=== PATIENT | male | born 1945 | race Caucasian/White ===

== ENCOUNTER → 2016-11-25 | Outpatient (CLI) | payer MEDICARE, BC ==
--- NOTE | 2016-11-25 11:09 | CT ---
EXAMINATION TYPE: CT brain wo con DATE OF EXAM: 11/25/2016 9:30 AM COMPARISON: 07/13/2011 HISTORY: 71-year-old male with headache, Chronic sinusitis. TECHNIQUE: Examination was done in axial plane without intravenous contrast. Coronal and sagittal r econstructions performed. CT DLP: 1576.90 mGycm Automated exposure control for dose reduction was used. FINDINGS: There is no evidence of acute intracranial hemorrhage, acute ischemic changes, mass, mass-effect, or extra-axial fluid collection. There is no effacement of cerebral sulci or basal subarachnoid cister ns. There is no hydrocephalus. There is no midline shift. Orr-white matter distinction is preserv ed. The paranasal sinuses will be reported separately. Orbits and globes are intact. Mastoid air cells we ll pneumatized. IMPRESSION: No acute intracranial abnormality seen. Paranasal sinuses reported separately.
--- NOTE | 2016-11-25 11:17 | CT ---
EXAMINATION TYPE: CT sinus wo con DATE OF EXAM: 11/25/2016 9:31 AM COMPARISON: NONE HISTORY: 71-year-old male headache, Chronic sinusitis. CT DLP: 1576.90 mGycm Automated exposure control for dose reduction was used. TECHNIQUE: Noncontrast axial views of the paranasal sinuses were obtained. Coronal reconstructions pe rformed. FINDINGS: There is evidence of prior medial maxillary antrectomies and some resection extending into the right ethmoid air cells. There is trace mucosal thickening along the floor of the left maxillary sinus, along the medial right maxillary sinus. Mild mucosal thickening throughout the sphenoid sinuses and right ethmoid air cells. Moderate mucosal thickening within the left ethmoid air cells. Rightward nasal septal deviation. There is no air-fluid level. Reactive roverto- osteogenesis is not seen. There is no destruction of the osseous topete of the paranasal sinuses. The osteomeatal complexes are widely patent. The imaged orbits are normal in appearance. Reformatted images confirm above findings. IMPRESSION: Prior FESS. Mild chronic paranasal sinus disease, moderate involving the left ethmoid air cells. Slig ht rightward nasal septal deviation.
== END | disposition home or self-care (01) ==
LOC: RADCTMAIN 09:01
PROVIDERS: ATTEND Family Medicine
DX: J32.2 Chronic ethmoidal sinusitis (principal); J34.2 Deviated nasal septum
CPT/HCPCS: 70450; 70486

== ENCOUNTER → 2017-11-14 | Outpatient (CLI) | payer MEDICARE, BC | END | disposition home or self-care (01) | LOC: LABWHC1 09:07 | PROVIDERS: ATTEND Internal Medicine Endocrinology, Diabetes & Metabolism | DX: E27.40 Unspecified adrenocortical insufficiency (principal) | CPT/HCPCS: 36415; 82024; 82533 ==

== ENCOUNTER → 2018-01-16 | Outpatient (CLI) | payer MEDICARE, BC | LOC: LABWHC1 09:35 | PROVIDERS: ATTEND Internal Medicine Endocrinology, Diabetes & Metabolism | DX: E27.40 Unspecified adrenocortical insufficiency (principal); R79.89 Other specified abnormal findings of blood chemistry | CPT/HCPCS: 36415; 83001; 83002; 84403 ==

== ENCOUNTER → 2018-01-26 | Outpatient (CLI) | payer MEDICARE, BC ==
[2018-01-26 12:21] LABS: Albumin 3.7 g/dL (3.5-5.0); Calcium 9.3 mg/dL (8.4-10.2); Potassium 4.3 mmol/L (3.5-5.1); Total Bilirubin 0.6 mg/dL (0.2-1.3)
== END | disposition home or self-care (01) ==
LOC: LABWHC1 11:46
PROVIDERS: ATTEND Internal Medicine Endocrinology, Diabetes & Metabolism
DX: D35.2 Benign neoplasm of pituitary gland (principal); E27.40 Unspecified adrenocortical insufficiency; R79.89 Other specified abnormal findings of blood chemistry
CPT/HCPCS: 36415; 80053; 83001; 83002; 84403

== ENCOUNTER → 2018-09-14 | Outpatient (CLI) | payer MEDICARE, BC ==
[2018-09-14 10:41] LABS: HCT 41.3 % (39.0-53.0); HGB 13.5 gm/dL (13.0-17.5); MCHC 32.7 g/dL (31.0-37.0); MCV 91.8 fL (80.0-100.0); Platelet Count 277 k/uL (150-450); WBC 9.2 k/uL (3.8-10.6)
[2018-09-14 16:01] LABS: ACTH 11.7 pg/mL (0.00-45.99)
== END ==
LOC: LABWHC1 10:22
PROVIDERS: ATTEND Internal Medicine Endocrinology, Diabetes & Metabolism
DX: D35.2 Benign neoplasm of pituitary gland (principal); E27.40 Unspecified adrenocortical insufficiency; R79.89 Other specified abnormal findings of blood chemistry
CPT/HCPCS: 36415; 82024; 82533; 83001; 83002; 84146; 84403; 85027

== ENCOUNTER → 2018-10-29 | Outpatient (CLI) | payer MEDICARE, BC ==
--- NOTE | 2018-11-09 11:40 | HM ---
HOLTER MONITOR REPORT 48 HOUR HOLTER MONITOR: DATE OF SERVICE: 10/29/2018. INDICATION: Palpitation. CLINICAL INFORMATION: The patient was monitored for 48 hours. The baseline rhythm appeared to be a sinus mechanism with a minimum heart rate of 60 beats per minute: Max heart rate 117 beats per minute, average heart rate of 83 beats per minute. Ventricular ectopic events presented in less than 1% of the total beats count and presented main presented only and isolated PVCs. Supraventricular ectopic events presented again in less than 1% of the total please count and presented as an as well. The PACs. No evidence of sinus pause or sinus arrest seen. The patient reported symptoms of dizziness and the symptoms were associated with PVCs. CONCLUSION: 1. This is a 48 hour Holter monitor. 2. Sinus rhythm as a baseline mechanism. 3. Rare ventricular ectopic events. 4. Right supraventricular ectopic events. 5. No evidence of sinus pause or sinus arrest. 6. The patient reported symptoms of shortness of breath and dizziness and the symptoms were associated with normal sinus mechanism. MMODL / IJN: [id number] /
== END | disposition home or self-care (01) ==
LOC: RADECHMAIN 12:21
PROVIDERS: ATTEND Family Medicine
DX: I49.1 Atrial premature depolarization (principal)
CPT/HCPCS: 93225; 93226

== ENCOUNTER → 2018-11-23 | Outpatient (CLI) | payer MEDICARE, BC ==
[2018-11-23 13:07] LABS: Albumin 4.2 g/dL (3.80-4.90); Albumin/Globulin Ratio 2.47 (1.60-3.17); Anion Gap 5.9 mmol/L (4.00-12.00); Calcium 9.3 mg/dL (8.7-10.3); Carbon Dioxide 28.1 mmol/L (21.6-31.8); Globulin 1.7 g/dL (1.6-3.3); LDL Cholesterol,Calculated 83.4 mg/dL (0.0-131.0); Potassium 4.3 mmol/L (3.5-5.5); Total Bilirubin 0.5 mg/dL (0.3-1.2); Total Protein 5.9 g/dL (6.2-8.2); VLDL Calculation 22.6 mg/dL (5.00-40.00)
== END | disposition home or self-care (01) ==
LOC: LABWHC1 06:47
PROVIDERS: ATTEND Nurse Practitioner Adult Health
DX: E78.2 Mixed hyperlipidemia (principal); I25.10 Atherosclerotic heart disease of native coronary artery without angina pectoris
CPT/HCPCS: 36415; 80053; 80061

== ENCOUNTER → 2019-02-19 | Outpatient (CLI) | payer MEDICARE, BC ==
[2019-02-19 10:16] LABS: HCT 41.5 % (39.0-53.0); HGB 13.5 gm/dL (13.0-17.5); MCH 29.7 pg (25.0-35.0); MCHC 32.4 g/dL (31.0-37.0); MCV 91.6 fL (80.0-100.0); Mean Platelet Volume 7.5; Platelet Count 229 k/uL (150-450); RBC 4.54 m/uL (4.30-5.90); RDW 15.1 % (11.5-15.5); WBC 11.2 k/uL (3.8-10.6)
[2019-02-19 19:00] LABS: ACTH 6.48 pg/mL (0.00-45.99)
== END | disposition home or self-care (01) ==
LOC: LABWHC1 09:37
PROVIDERS: ATTEND Internal Medicine Endocrinology, Diabetes & Metabolism
DX: D35.2 Benign neoplasm of pituitary gland (principal)
CPT/HCPCS: 36415; 82024; 82533; 83001; 83002; 84146; 84403; 85027

== ENCOUNTER → 2019-04-12 | Outpatient (CLI) | payer MEDICARE, BC | END | disposition home or self-care (01) | LOC: LABWHC1 15:49 | PROVIDERS: ATTEND Internal Medicine Endocrinology, Diabetes & Metabolism | DX: D35.2 Benign neoplasm of pituitary gland (principal) | CPT/HCPCS: 36415; 84146 ==

== ENCOUNTER → 2019-04-27 | Outpatient (CLI) | payer MEDICARE, BC | END | disposition home or self-care (01) | LOC: LABWHC1 10:45 | PROVIDERS: ATTEND Internal Medicine Endocrinology, Diabetes & Metabolism | DX: E27.40 Unspecified adrenocortical insufficiency (principal) | CPT/HCPCS: 36415; 82024; 82533 ==

== ENCOUNTER 2019-05-21 07:27 | Inpatient (IN) | payer MEDICARE, BC ==
[2019-05-13 14:16] VITALS: BMI 44.9
[~2019-05-21 07:27] MED LIST: HYDROmorphone 0.5 MG/0.5 ML SYRINGE IVP PRN; SODIUM CHLORIDE 0.9% 1,000 ML in EMPTY BAG 1 BAG IV ONE; ceFAZolin 3 GM in SODIUM CHLORIDE 0.9% 100 ML IVPB ONE
[2019-05-21 08:13] LABS: Basophils % (A) 0 %; Eosinophils # (A) 0.1 k/uL (0-0.7); Eosinophils % (A) 1 %; HCT 45.4 % (39.0-53.0); HGB 15.1 gm/dL (13.0-17.5); Lymphocytes # (A) 1.5 k/uL (1.0-4.8); Lymphocytes % (A) 13 %; MCH 31.4 pg (25.0-35.0); MCHC 33.3 g/dL (31.0-37.0); MCV 94.1 fL (80.0-100.0); Mean Platelet Volume 7.3; Monocytes # (A) 0.9 k/uL (0-1.0); Monocytes % (A) 8 %; Neutrophils % (A) 76 %; Platelet Count 240 k/uL (150-450); RBC 4.82 m/uL (4.30-5.90); WBC 11.8 k/uL (3.8-10.6)
[2019-05-21 08:20] LABS: Calcium 9.3 mg/dL (8.4-10.2); Potassium 4.1 mmol/L (3.5-5.1)
[2019-05-21] MEDS ORDERED: MIDAZOLAM 2 MG/2 ML VIAL ONE (09:23)
[2019-05-21] MEDS ORDERED: HEPARIN SODIUM,PORCINE 10,000 UNIT/ML 1 ML VIAL ONE (09:23)
[2019-05-21] MEDS ORDERED: PROPOFOL 10 MG/ML 20 ML VIAL IV ONE (09:23)
[2019-05-21] MEDS ORDERED: NEOSTIGMINE 1 MG/ML 10 ML VIAL ONE (09:23)
[2019-05-21] MEDS ORDERED: GLYCOPYRROLATE 0.2 MG/ML 2 ML VIAL ONE (09:23)
[2019-05-21] MEDS ORDERED: fentaNYL (PF) 50 MCG/ML 2 ML AMP ONE (09:23)
[2019-05-21] MEDS ORDERED: LIDOCAINE 1% INJ 10MG/ML (20 ML MDV) ONE (09:23)
[2019-05-21] MEDS ORDERED: ROCURONIUM BROMIDE 10 MG/ML 10 ML VIAL IV ONE (09:23)
[2019-05-21] MEDS ORDERED: SUCCINYLCHOLINE CHLORIDE VIAL 200 MG/10 ML VIAL IV ONE (09:23)
[2019-05-21] MEDS ORDERED: ePHEDrine SULFATE/0.9% NACL/PF 50 MG/5 ML SYRINGE IV ONE (09:23)
[2019-05-21] MEDS ORDERED: PROTAMINE SULFATE 10 MG/ML 5 ML VIAL IV ONE (09:23)
[2019-05-21] MEDS ORDERED: PHENYLEPHRINE-0.9% NACL SYG 1 MG/10 ML SYRINGE ONE (09:23)
[2019-05-21] MEDS ORDERED: ceFAZolin 10 GM VIAL IVPB ONE (09:45)
[2019-05-21] MEDS ORDERED: LIDOCAINE 1% INJ 10MG/ML (20 ML MDV) SQ ONE (10:11)
[2019-05-21] MEDS ORDERED: LACTATED RINGERS 1,000 ML IV ONE ×2 (10:45→12:40)
[2019-05-21] MEDS ORDERED: IOPAMIDOL-250 100ML BTL INTRAARTER ONE ×3 (12:01→12:02)
[2019-05-21] MEDS: LACTATED RINGERS 1,000 ML IV SCH ×2 (13:16→13:17)
[2019-05-21 13:57] LABS: Glucose,Whole Blood 145 mg/dL (75-99)
[2019-05-21] MEDS: SODIUM CHLORIDE 0.9% 1,000 ML IV SCH (14:14)
[2019-05-21] MEDS: HYDROcodone/APAP 5-325MG 1 EACH TAB PO PRN ×2 (15:56→21:40)
--- NOTE | 2019-05-21 16:03 | P.CONS ---
History of Present Illness - Reason for Consult Consult date: 05/21/19 Medical management Requesting physician: Arnulfo Richards - History of Present Illness This is a 73-year-old male patient of Dr. Navarrete. Patient presented for an elective aortic stent graft with Dr. Richards. Patient has a past medical history of prothrombin gene mutation, chest pain, COPD, deep vein thrombosis, GERD, pneumonia, chronic renal disease, sleep apnea, diverticulitis, adrenal insufficiency, heart catheterization with stents last one approximately 5 years ago, anxiety and nicotine dependence. Patient is currently resting comfortably in bed on home CPAP machine. Patient does have bilateral lower extremity edema in which he reports is chronic. Patient has mild back discomfort from having to lay on back. Patient denies any chest pain or shortness of breath. Patient denies nausea vomiting or diarrhea. Patient denies any urinary burning or frequency Review of Systems Please refer to HPI otherwise unremarkable Past Medical History Past Medical History: Blood Disorder, Chest Pain / Angina, COPD, Deep Vein Thrombosis (DVT), GERD/Reflux, Pneumonia, Renal Disease, Sleep Apnea/CPAP/BIPAP Additional Past Medical History / Comment(s): abdominal aortic aneursym. prothrombin gene mutation. has cpap machine. prediabetic,hx diverticulitis, sinus problems with drainage, adrenal insufficiency History of Any Multi-Drug Resistant Organisms: MRSA Year Discovered:: 2016 MDRO Source:: back Past Surgical History: Appendectomy, Bowel Resection, Cholecystectomy, Heart Catheterization With Stent, Hernia Repair, Prostate Surgery Additional Past Surgical History / Comment(s): growth removed from side. heart cath x2 with 3-4 stents Past Anesthesia/Blood Transfusion Reactions: Motion Sickness Date of Last Stent Placement:: 2014 Smoking Status: Current every day smoker - Past Family History Mother Family Medical History: No Reported History Medications and Allergies Home Medications Medication Instructions Recorded Confirmed Type Albuterol Inhaler [Ventolin Hfa 1 puff INHALATION RT-BID 05/13/19 05/21/19 History Inhaler] Allopurinol [Zyloprim] 100 mg PO BID 05/13/19 05/21/19 History Budesonide [Pulmicort] 0.25 mg INHALATION RT-BID 05/13/19 05/21/19 History Cetirizine HCl [Zyrtec] 10 mg PO DAILY 05/13/19 05/21/19 History Clopidogrel Bisulfate [Plavix] 75 mg PO DAILY 05/13/19 05/21/19 History Ergocalciferol [Vitamin D2] 50,000 unit PO Q15D 05/13/19 05/21/19 History Ezetimibe [Zetia] 10 mg PO HS 05/13/19 05/21/19 History Flecainide Acetate [Tambocor] 100 mg PO Q12HR 05/13/19 05/21/19 History Furosemide [Lasix] 20 mg PO DAILY PRN 05/13/19 05/21/19 History Hydrocortisone [Cortef] 10 mg PO DAILY@1300 05/13/19 05/21/19 History Hydrocortisone [Cortef] 20 mg PO DAILY 05/13/19 05/21/19 History Ipratropium [place] [Atrovent Hfa] 2 puff INHALATION RT-BID 05/13/19 05/21/19 History Isosorbide Mononitrate [Isosorbide 30 mg PO DAILY 05/13/19 05/21/19 History Mononitrate ER] Meclizine [Antivert] 12.5 mg PO DAILY PRN 05/13/19 05/21/19 History Metoprolol Tartrate [Lopressor] 12.5 mg PO BID 05/13/19 05/21/19 History Montelukast [Singulair] 10 mg PO HS 05/13/19 05/21/19 History Multivitamins, Thera [Multivitamin 1 tab PO DAILY 05/13/19 05/21/19 History (formulary)] Pantoprazole Sodium [Protonix] 40 mg PO BID 05/13/19 05/21/19 History cycloSPORINE 0.05% OPHTH SOLN 1 applicator BOTH EYES Q12H 05/13/19 05/21/19 History [Restasis] Allergies Allergy/AdvReac Type Severity Reaction Status Date / Time cyclobenzaprine Allergy Facial Verified 05/21/19 12:52 [From Flexeril] Swelling Ncvwskf-Wew-Tzu Reductase Allergy Unknown Verified 05/21/19 12:52 Inhibitor Physical Exam Vitals: Vital Signs Temp Pulse Pulse Pulse Resp BP BP 05/21/19 15:00 63 12 05/21/19 14:50 60 15 05/21/19 14:40 56 L 14 05/21/19 14:30 56 L 17 05/21/19 14:20 65 14 05/21/19 14:10 62 12 101/71 05/21/19 14:00 97.5 F L 64 13 116/69 05/21/19 13:32 54 L 18 114/62 05/21/19 13:17 64 18 110/60 05/21/19 13:02 58 L 24 98/47 05/21/19 12:51 98.7 F 65 24 112/58 05/21/19 08:37 98.2 F 80 20 120/69 Pulse Ox 05/21/19 15:00 92 L 05/21/19 14:50 91 L 05/21/19 14:40 89 L 05/21/19 14:30 90 L 05/21/19 14:20 93 L 05/21/19 14:10 92 L 05/21/19 14:00 92 L 05/21/19 13:32 95 05/21/19 13:17 94 L 05/21/19 13:02 93 L 05/21/19 12:51 97 05/21/19 08:37 93 L Intake and Output 05/21/19 05/21/19 05/21/19 06:59 14:59 22:59 Intake Total 2155 75 Output Total 250 40 Balance 1905 35 Intake: IV 2155 75 Sodium Chloride 0.9% 1, 75 75 000 ml @ 75 mls/hr IV . [id number] [facility] Rx#:[id number] Output: Urine 250 40 ABP, PAP, CO, CI - Last 8 Hours Arterial Blood Pressure 123/55 Arterial Blood Pressure 124/56 Arterial Blood Pressure 125/57 Arterial Blood Pressure 130/61 Arterial Blood Pressure 122/59 Arterial Blood Pressure 130/58 Arterial Blood Pressure 125/67 please refer to HPI otherwise unremarkable Results CBC & Chem 7: 05/21/19 07:50 05/21/19 07:50 Labs: Abnormal Lab Results - Last 24 Hours (Table) 05/21/19 05/21/19 05/21/19 Range/Units 07:50 07:50 13:55 WBC 11.8 H (3.8-10.6) k/uL RDW 16.0 H (11.5-15.5) % Neutrophils # 9.0 H (1.3-7.7) k/uL Glucose 140 H (74-99) mg/dL POC Glucose (mg/dL) 145 H (75-99) mg/dL Assessment and Plan Assessment: 1. Status post aortic stent graft with Dr. Richards. postop day 0 2. History of abdominal aortic aneurysm 3. History of blood disorder prothrombin gene mutation 4. History of COPD home meds resumed no signs of exacerbation at this time 5. History of GERD 6. History of chest pain 7. History of DVT patient reports this is approximately 15 years ago not currently on any anticoagulation 8. History of heart cath with stents in 2014 9. Nicotine dependence. Patient educated on nicotine cessation greater then 3 min. Nicotine patch has been ordered. 10. History of adrenal insufficiency. Patient maintained on Solu-Cortef 11. History of sleep apnea. Home CPAP machine ordered 12. Hyperglycemia. Hemoglobin A1c has been ordered. Sliding scale insulin coverage ordered 13. Hyperlipidemia. Patient seen on study of 14. Bilateral lower extremity pedal edema. Patient reports this is chronic maintained on Lasix. DVT prophylaxis deferred to surgical team. GI prophylaxis Pepcid Thank you for this consultation we will continue to follow patient closely throughout stay Time with Patient: Greater than 30 (Greater than 60% of the total time spent in counseling and coordination of care. I performed an examination of the patient and discussed their management with the Nurse Practitioner. I have reviewed the Nurse Practitioner's notes and agree with the documented findings and plan of care)
[2019-05-21 16:37] LABS: Glucose,Whole Blood 112 mg/dL (75-99)
[2019-05-21] MEDS: INSULIN ASPART (NovoLOG) 100 UNIT/ML VIAL SQ SCH ×2 (17:09→21:24)
[2019-05-21] MEDS: FUROSEMIDE 20 MG TAB PO SCH (17:12)
[2019-05-21] MEDS: PANTOPRAZOLE 40 MG TABLET PO SCH (17:12)
--- NOTE | 2019-05-21 18:31 | P.CNPUL ---
History of Present Illness Consult date: 05/21/19 Reason for consult: dyspnea, asthma, COPD, hypoxemia, obstructive sleep apnea Chief complaint: COPD obstructive sleep apnea History of present illness: This is a 73-year-old well-known to me patient has a long-standing history of multiple medical problems including recurrent DVT with a history of prothrombin gene mutation, patient has severe obstructive sleep apnea has been on CPAP he has severe COPD chronic recurrent sinopulmonary infections with history of coronary artery disease patient has an enlarging aortic aneurysm and was admitted electively for graft postoperatively patient developed some shortness of breath and wheezing however he did responded well with CPAP along with bronchodilator he is resting comfortably on CPAP in ICU he has been resumed on not only CPAP but Pulmicort and DuoNeb as well he has been resumed on his baseline home medicine including hydrocortisone for chronic adrenal insufficie ncy Review of Systems All systems: negative Past Medical History Past Medical History: Blood Disorder, Chest Pain / Angina, COPD, Deep Vein Thrombosis (DVT), GERD/Reflux, Pneumonia, Renal Disease, Sleep Apnea/CPAP/BIPAP Additional Past Medical History / Comment(s): abdominal aortic aneursym. p rothrombin gene mutation. has cpap machine. prediabetic,hx diverticulitis, sinus problems with drainage, adrenal insufficiency History of Any Multi-Drug Resistant Organisms: MRSA Date of last positivie culture/infection: 2015 MDRO Source:: back Past Surgical History: Appendectomy, Bowel Resection, Cholecystectomy, Heart Catheterization With Stent, Hernia Repair, Prostate Surgery Additional Past Surgical History / Comment(s): growth removed from side. heart cath x2 with 3-4 stents Past Anesthesia/Blood Transfusion Reactions: Motion Sickness Date of Last Stent Placement:: 2014 Smoking Status: Current every day smoker - Past Family History Mother Family Medical History: No Reported History Medications and Allergies Home Medications Medication Instructions Recorded Confirmed Type Albuterol Inhaler [Ventolin Hfa 1 puff INHALATION RT-BID 05/13/19 05/21/19 History Inhaler] Allopurinol [Zyloprim] 100 mg PO BID 05/13/19 05/21/19 History Budesonide [Pulmicort] 0.25 mg INHALATION RT-BID 05/13/19 05/21/19 History Cetirizine HCl [Zyrtec] 10 mg PO DAILY 05/13/19 05/21/19 History Clopidogrel Bisulfate [Plavix] 75 mg PO DAILY 05/13/19 05/21/19 History Ergocalciferol [Vitamin D2] 50,000 unit PO Q15D 05/13/19 05/21/19 History Ezetimibe [Zetia] 10 mg PO HS 05/13/19 05/21/19 History Flecainide Acetate [Tambocor] 100 mg PO Q12HR 05/13/19 05/21/19 History Furosemide [Lasix] 20 mg PO DAILY PRN 05/13/19 05/21/19 History Hydrocortisone [Cortef] 10 mg PO DAILY@1300 05/13/19 05/21/19 History Hydrocortisone [Cortef] 20 mg PO DAILY 05/13/19 05/21/19 History Ipratropium [place] [Atrovent Hfa] 2 puff INHALATION RT-BID 05/13/19 05/21/19 History Isosorbide Mononitrate [Isosorbide 30 mg PO DAILY 05/13/19 05/21/19 History Mononitrate ER] Meclizine [Antivert] 12.5 mg PO DAILY PRN 05/13/19 05/21/19 History Metoprolol Tartrate [Lopressor] 12.5 mg PO BID 05/13/19 05/21/19 History Montelukast [Singulair] 10 mg PO HS 05/13/19 05/21/19 History Multivitamins, Thera [Multivitamin 1 tab PO DAILY 05/13/19 05/21/19 History (formulary)] Pantoprazole Sodium [Protonix] 40 mg PO BID 05/13/19 05/21/19 History cycloSPORINE 0.05% OPHTH SOLN 1 applicator BOTH EYES Q12H 05/13/19 05/21/19 History [Restasis] Allergies Allergy/AdvReac Type Severity Reaction Status Date / Time cyclobenzaprine Allergy Facial Verified 05/21/19 12:52 [From Flexeril] Swelling Oqgpowd-Mni-Xle Reductase Allergy Unknown Verified 05/21/19 12:52 Inhibitor Physical Exam Vitals: Vital Signs Temp Pulse Pulse Pulse Resp BP BP 05/21/19 18:00 68 16 120/64 05/21/19 17:30 65 12 120/64 05/21/19 17:00 62 15 05/21/19 16:30 68 18 117/70 05/21/19 16:00 97.7 F 75 24 107/61 05/21/19 15:30 63 20 107/61 05/21/19 15:00 63 12 101/71 05/21/19 14:50 60 15 101/71 05/21/19 14:40 56 L 14 101/71 05/21/19 14:30 56 L 17 101/71 05/21/19 14:20 65 14 05/21/19 14:10 62 12 101/71 05/21/19 14:00 97.5 F L 64 13 116/69 05/21/19 13:32 54 L 18 114/62 05/21/19 13:17 64 18 110/60 05/21/19 13:02 58 L 24 98/47 05/21/19 12:51 98.7 F 65 24 112/58 05/21/19 08:37 98.2 F 80 20 120/69 Pulse Ox 05/21/19 18:00 93 L 05/21/19 17:30 93 L 05/21/19 17:00 94 L 05/21/19 16:30 92 L 05/21/19 16:00 95 05/21/19 15:30 94 L 05/21/19 15:00 92 L 05/21/19 14:50 91 L 05/21/19 14:40 89 L 05/21/19 14:30 90 L 05/21/19 14:20 93 L 05/21/19 14:10 92 L 05/21/19 14:00 92 L 05/21/19 13:32 95 05/21/19 13:17 94 L 05/21/19 13:02 93 L 05/21/19 12:51 97 05/21/19 08:37 93 L Intake and Output 05/21/19 05/21/19 05/21/19 06:59 14:59 22:59 Intake Total 2155 300 Output Total 250 200 Balance 1905 100 Intake: IV 2155 300 Sodium Chloride 0.9% 1, 75 300 000 ml @ 75 mls/hr IV . [id number] [facility] Rx#:[id number] Output: Urine 250 200 Other: Voiding Method Indwelling Catheter ABP, PAP, CO, CI - Last 8 Hours Arterial Blood Pressure 140/58 Arterial Blood Pressure 138/70 Arterial Blood Pressure 144/63 Arterial Blood Pressure 141/68 Arterial Blood Pressure 131/59 Arterial Blood Pressure 131/59 Arterial Blood Pressure 123/55 Arterial Blood Pressure 124/56 Arterial Blood Pressure 125/57 Arterial Blood Pressure 130/61 Arterial Blood Pressure 122/59 Arterial Blood Pressure 130/58 Arterial Blood Pressure 125/67 - Constitutional General appearance: disheveled, mild distress, morbidly obese - EENT Eyes: EOMI, PERRLA, normal appearance ENT: hearing grossly normal Ears: bilateral: normal - Neck Carotids: bilateral: upstroke normal Thyroid: bilateral: normal size - Respiratory Respiratory: bilateral: CTA - Cardiovascular Rhythm: regular Heart sounds: normal: S1, S2 - Gastrointestinal General gastrointestinal: decreased bowel sounds, soft - Integumentary Integumentary: normal turgor - Neurologic Neurologic: CNII-XII intact - Musculoskeletal Musculoskeletal: gait normal, generalized weakness, strength equal bilaterally - Psychiatric Psychiatric: A&O x's 3, appropriate affect, intact judgment & insight Results - Laboratory Findings CBC and BMP: 05/21/19 07:50 05/21/19 07:50 Abnormal lab findings: Abnormal Labs 05/21/19 05/21/19 05/21/19 07:50 07:50 13:55 WBC 11.8 H RDW 16.0 H Neutrophils # 9.0 H Glucose 140 H POC Glucose (mg/dL) 145 H 05/21/19 16:35 WBC RDW Neutrophils # Glucose POC Glucose (mg/dL) 112 H Assessment and Plan Assessment: Obstructive sleep apnea on CPAP Severe COPD and chronic persistent asthma Morbid obesity Abdominal aortic aneurysm status post graft postop day #0 Hypercoagulable state related to prominent thrombin gene mutation History of DVT Coronary artery disease with history of stents Chronic adrenal insufficiency Plan: Plan as above bronchodilator CPAP continue home medications follow clinical course closely further recommendations pending
[2019-05-21] MEDS: BUDESONIDE 0.25 MG/2 ML NEBU INHALATION SCH (19:55)
[2019-05-21] MEDS: IPRATROPIUM-ALBUTEROL 3 ML NEB INHALATION SCH (19:55)
[2019-05-21] MEDS ORDERED: NON-FORMULARY DRUG (Ipratropium Bromide [Atrovent Hfa] 2 PUFF) INHALATION SCH (20:00)
[2019-05-21] MEDS: METOPROLOL TARTRATE 12.5 MG TAB PO SCH (20:24)
[2019-05-21] MEDS: FLECAINIDE 50 MG TAB PO SCH (20:24)
[2019-05-21] MEDS: ALLOPURINOL 100 MG TAB PO SCH (20:24)
[2019-05-21 20:35] LABS: Glucose,Whole Blood 154 mg/dL (75-99)
[2019-05-21] MEDS ORDERED: EZETIMIBE 10 MG TAB PO SCH (21:00)
[2019-05-21] MEDS ORDERED: MONTELUKAST 10 MG TAB PO SCH (21:00)
[2019-05-21] MEDS: NICOTINE 14MG/24HR PATCH TRANSDERM SCH (21:31)
[2019-05-21] MEDS: cycloSPORINE 0.05% OPHTH 0.4 ML DROPERETTE BOTH EYES SCH (21:31)
[2019-05-22] MEDS: HYDROcodone/APAP 5-325MG 1 EACH TAB PO PRN (00:45)
[2019-05-22 01:05] LABS: Hemoglobin A1C 6.1 % (4.0-6.0)
[2019-05-22] MEDS: SODIUM CHLORIDE 0.9% 1,000 ML IV SCH (01:47)
[2019-05-22] MEDS: LACTATED RINGERS 1,000 ML IV SCH (01:47)
[2019-05-22 05:38] LABS: Basophils # (A) 0.4 k/uL (0-0.2); Basophils % (A) 3 %; Eosinophils # (A) 0.1 k/uL (0-0.7); Eosinophils % (A) 1 %; HCT 39.9 % (39.0-53.0); HGB 13.9 gm/dL (13.0-17.5); Lymphocytes # (A) 1.1 k/uL (1.0-4.8); Lymphocytes % (A) 9 %; MCH 32.2 pg (25.0-35.0); MCHC 34.8 g/dL (31.0-37.0); MCV 92.6 fL (80.0-100.0); Mean Platelet Volume 7.2; Monocytes # (A) 1.1 k/uL (0-1.0); Monocytes % (A) 9 %; Neutrophils # (A) 9.5 k/uL (1.3-7.7); Neutrophils % (A) 77 %; Platelet Count 182 k/uL (150-450); RBC 4.31 m/uL (4.30-5.90); RDW 14.9 % (11.5-15.5); WBC 12.4 k/uL (3.8-10.6)
[2019-05-22 05:47] LABS: African American GFR (CKD) >90 (>60 ml/min/1.73 sqM); Anion Gap 7 mmol/L; Blood Urea Nitrogen 14 mg/dL (9-20); Calcium 8.8 mg/dL (8.4-10.2); Carbon Dioxide 26 mmol/L (22-30); Chloride 100 mmol/L (98-107); Glucose 126 mg/dL (74-99); Sodium 133 mmol/L (137-145)
[2019-05-22 06:56] LABS: Glucose,Whole Blood 145 mg/dL (75-99)
[2019-05-22] MEDS: PANTOPRAZOLE 40 MG TABLET PO SCH (06:57)
[2019-05-22] MEDS: INSULIN ASPART (NovoLOG) 100 UNIT/ML VIAL SQ SCH ×2 (06:57→12:00)
[2019-05-22 07:17] LABS: Potassium 4.3 mmol/L (3.5-5.1)
[2019-05-22] MEDS: IPRATROPIUM-ALBUTEROL 3 ML NEB INHALATION SCH (08:21)
[2019-05-22] MEDS: BUDESONIDE 0.25 MG/2 ML NEBU INHALATION SCH (08:21)
[2019-05-22] MEDS: METOPROLOL TARTRATE 12.5 MG TAB PO SCH (08:44)
[2019-05-22] MEDS: FLECAINIDE 50 MG TAB PO SCH (08:45)
[2019-05-22] MEDS: FUROSEMIDE 20 MG TAB PO SCH (08:45)
[2019-05-22] MEDS: ALLOPURINOL 100 MG TAB PO SCH (08:45)
[2019-05-22] MEDS: cycloSPORINE 0.05% OPHTH 0.4 ML DROPERETTE BOTH EYES SCH (08:46)
[2019-05-22] MEDS: NICOTINE 14MG/24HR PATCH TRANSDERM SCH (08:47)
--- NOTE | 2019-05-22 08:59 | P.DS ---
Providers Date of admission: 05/21/19 07:27 Attending physician: Arnulfo Richards DO Consults: 05/21/19 06:05 Consult to Anesthesia Routine Consulting Provider: Anesthesia,Services Consult Reason/Comments: General anesthesia for Aortic Stent procedure 05/21/19 15:33 Consult Physician Routine Consulting Provider: Jose Elaine Consult Reason/Comments: medical management/covers Dr Osullivan per Dr Cotton, Dr Elaine confirms Do you want consulting provider notified?: Already Contacted 05/21/19 16:30 Consult Physician Routine Consulting Provider: Jadon Smith Consult Reason/Comments: Established patient Do you want consulting provider notified?: Yes Primary care physician: Maddy Osullivan [facility] Course: The patient is a 73-year-old male who initially was admitted through outpatient procedures for a endovascular abdominal aortic aneurysm repair. He underwent this procedure on 05/21/2019 which he tolerated well. On postoperative day #1 he was urinating well without any issue. He was tolerating a diet. He was up and ambulating without issue. His groins were intact without any evidence of significant hematoma or evidence of pseudoaneurysm. There was minimal oozing overnight from the groins at this time there appears to be no drainage. The dressings are changed. He was found with stable condition for discharge. He will be restarted on his home medications which include Plavix Patient Condition at Discharge: Good Plan - Discharge Summary Discharge Rx Participant: No New Discharge Prescriptions: No Action Multivitamins, Thera [Multivitamin (formulary)] 1 tab PO DAILY Ipratropium [place] [Atrovent Hfa] 2 puff INHALATION RT-BID Furosemide [Lasix] 20 mg PO DAILY PRN PRN Reason: Edema Flecainide Acetate [Tambocor] 100 mg PO Q12HR Ezetimibe [Zetia] 10 mg PO HS Albuterol Inhaler [Ventolin Hfa Inhaler] 1 puff INHALATION RT-BID Budesonide [Pulmicort] 0.25 mg INHALATION RT-BID cycloSPORINE 0.05% OPHTH SOLN [Restasis] 1 applicator BOTH EYES Q12H Montelukast [Singulair] 10 mg PO HS Metoprolol Tartrate [Lopressor] 12.5 mg PO BID Cetirizine HCl [Zyrtec] 10 mg PO DAILY Allopurinol [Zyloprim] 100 mg PO BID Pantoprazole Sodium [Protonix] 40 mg PO BID Ergocalciferol [Vitamin D2] 50,000 unit PO Q15D Clopidogrel Bisulfate [Plavix] 75 mg PO DAILY Isosorbide Mononitrate [Isosorbide Mononitrate ER] 30 mg PO DAILY Hydrocortisone [Cortef] 10 mg PO DAILY@1300 Hydrocortisone [Cortef] 20 mg PO DAILY Meclizine [Antivert] 12.5 mg PO DAILY PRN PRN Reason: dizziness Discharge Medication List Albuterol Inhaler [Ventolin Hfa Inhaler] 1 puff INHALATION RT-BID 05/13/19 [History] Allopurinol [Zyloprim] 100 mg PO BID 05/13/19 [History] Budesonide [Pulmicort] 0.25 mg INHALATION RT-BID 05/13/19 [History] Cetirizine HCl [Zyrtec] 10 mg PO DAILY 05/13/19 [History] Clopidogrel Bisulfate [Plavix] 75 mg PO DAILY 05/13/19 [History] Ergocalciferol [Vitamin D2] 50,000 unit PO Q15D 05/13/19 [History] Ezetimibe [Zetia] 10 mg PO HS 05/13/19 [History] Flecainide Acetate [Tambocor] 100 mg PO Q12HR 05/13/19 [History] Furosemide [Lasix] 20 mg PO DAILY PRN 05/13/19 [History] Hydrocortisone [Cortef] 10 mg PO DAILY@1300 05/13/19 [History] Hydrocortisone [Cortef] 20 mg PO DAILY 05/13/19 [History] Ipratropium [place] [Atrovent Hfa] 2 puff INHALATION RT-BID 05/13/19 [History] Isosorbide Mononitrate [Isosorbide Mononitrate ER] 30 mg PO DAILY 05/13/19 [History] Meclizine [Antivert] 12.5 mg PO DAILY PRN 05/13/19 [History] Metoprolol Tartrate [Lopressor] 12.5 mg PO BID 05/13/19 [History] Montelukast [Singulair] 10 mg PO HS 05/13/19 [History] Multivitamins, Thera [Multivitamin (formulary)] 1 tab PO DAILY 05/13/19 [History] Pantoprazole Sodium [Protonix] 40 mg PO BID 05/13/19 [History] cycloSPORINE 0.05% OPHTH SOLN [Restasis] 1 applicator BOTH EYES Q12H 05/13/19 [History] Follow up Appointment(s)/Referral(s): Arnulfo Richards DO [STAFF PHYSICIAN] - 10 Days Activity/Diet/Wound Care/Special Instructions: Continue diet as tolerated. Change groin dressings as needed. May shower starting tomorrow. No soaking in pools, tubs or bath etc. Follow-up with Dr. Richards in 10-14 days Discharge Disposition: HOME SELF-CARE
[2019-05-22] MEDS ORDERED: NICOTINE 14MG/24HR PATCH TRANSDERM SCH (09:00)
[2019-05-22] MEDS ORDERED: CLOPIDOGREL 75 MG TAB PO SCH (09:00)
[2019-05-22] MEDS ORDERED: MULTIVITAMINS, THERA 1 EACH TAB PO SCH (09:00)
[2019-05-22] MEDS ORDERED: LORATADINE 10 MG TAB PO SCH (09:00)
[2019-05-22] MEDS ORDERED: ISOSORBIDE MONONITRATE ER 30 MG TAB.ER.24H PO SCH (09:00)
[2019-05-22] MEDS ORDERED: FAMOTIDINE 20 MG TAB PO SCH (09:00)
[2019-05-22] MEDS ORDERED: HYDROCORTISONE 10 MG TAB PO SCH ×2 (09:00→13:00)
[2019-05-22] MEDS ORDERED: ALPRAZolam 0.5 MG TAB PO PRN (09:32)
--- NOTE | 2019-05-22 10:28 | P.PN ---
Subjective Progress Note Date: 05/22/19 This is a 73-year-old male patient of Dr. Navarrete. Patient presented for an elective aortic stent graft with Dr. Richards. Patient has a past medical history of prothrombin gene mutation, chest pain, COPD, deep vein thrombosis, GERD, pneumonia, chronic renal disease, sleep apnea, diverticulitis, adrenal i nsufficiency, heart catheterization with stents last one approximately 5 years ago, anxiety and nicotine dependence. Patient is currently resting comfortably in bed on home CPAP machine. Patient does have bilateral lower extremity edema in which he reports is chronic. Patient has mild back discomfort from having to lay on back. Patient denies any chest pain or shortness of breath. Patient den ies nausea vomiting or diarrhea. Patient denies any urinary burning or frequency On 05/22/2019 patient is alert and oriented 3. Patient's is very eager to go home plans to be discharged from cardiovascular surgery. At this time patient denies chest pain or shortness of breath. Patient denies nausea vomiting or diarrhea. Patient denies urinary burning or frequency Objective - Vital Signs Vital signs: Vital Signs Temp 98.1 F 05/22/19 09:00 Pulse 84 05/22/19 10:00 Resp 19 05/22/19 10:00 BP 159/88 05/22/19 10:00 Pulse Ox 93 L 05/22/19 10:00 Intake & Output 05/21/19 05/22/19 05/22/19 18:59 06:59 18:59 Intake Total 2455 900 85 Output Total 450 1475 900 Balance 2004 -575 -815 Weight 158.9 kg Intake: IV 2455 900 85 Sodium Chloride 0.9% 1, 375 900 85 000 ml @ 75 mls/hr IV . [id number] [facility] Rx#:[id number] Output: Urine 450 1475 900 Other: Voiding Method Indwelling Catheter Indwelling Catheter Urinal ABP, PAP, CO, CI - Last Documented Arterial Blood Pressure 160/62 - Exam Head normocephalic Neck supple Lungs diminished bilaterally Heart regular rate and rhythm S1-S2, no rub or gallop Abdomen is soft nontender nondistended positive bowel sounds no hepatosplenomegaly Extremities 2 pedal edema patient reports chronic Neuro alert and orientated to 3 - Labs CBC & Chem 7: 05/22/19 05:10 05/22/19 05:10 Labs: Abnormal Lab Results - Last 24 Hours (Table) 05/21/19 05/21/19 05/21/19 Range/Units 07:50 13:55 16:35 WBC (3.8-10.6) k/uL Neutrophils # (1.3-7.7) k/uL Monocytes # (0-1.0) k/uL Basophils # (0-0.2) k/uL Sodium (137-145) mmol/L Glucose (74-99) mg/dL POC Glucose (mg/dL) 145 H 112 H (75-99) mg/dL Hemoglobin A1c 6.1 H (4.0-6.0) % 05/21/19 05/22/19 05/22/19 Range/Units 20:33 05:10 05:10 WBC 12.4 H (3.8-10.6) k/uL Neutrophils # 9.5 H (1.3-7.7) k/uL Monocytes # 1.1 H (0-1.0) k/uL Basophils # 0.4 H (0-0.2) k/uL Sodium 133 L (137-145) mmol/L Glucose 126 H (74-99) mg/dL POC Glucose (mg/dL) 154 H (75-99) mg/dL Hemoglobin A1c (4.0-6.0) % 05/22/19 Range/Units 06:53 WBC (3.8-10.6) k/uL Neutrophils # (1.3-7.7) k/uL Monocytes # (0-1.0) k/uL Basophils # (0-0.2) k/uL Sodium (137-145) mmol/L Glucose (74-99) mg/dL POC Glucose (mg/dL) 145 H (75-99) mg/dL Hemoglobin A1c (4.0-6.0) % Assessment and Plan Assessment: 1. Status post aortic stent graft with Dr. Richards. postop day 1. Patient planned to be discharged home per cardiovascular surgery. Plavix has been resumed 2. History of abdominal aortic aneurysm 3. History of blood disorder prothrombin gene mutation 4. History of COPD home meds resumed no signs of exacerbation at this time. Patient was evaluated by Dr. Smith 5. History of GERD 6. History of chest pain 7. History of DVT patient reports this is approximately 15 years ago not currently on any anticoagulation 8. History of heart cath with stents in 2015 9. Nicotine dependence. Patient educated on nicotine cessation greater then 3 min. Nicotine patch has been ordered. 10. History of adrenal insufficiency. Patient maintained on Solu-Cortef 11. History of sleep apnea. Home CPAP machine ordered 12. Hyperglycemia. Hemoglobin A1c has been ordered. Sliding scale insulin coverage ordered 13. Hyperlipidemia. Patient maintained on zetia 14. Bilateral lower extremity pedal edema. Patient reports this is chronic maintained on Lasix. 15. Leukocytosis White blood cell elevated at 12.4. Patient denies any acute symptoms likely due to Solu-Cortef DVT prophylaxis deferred to surgical team. GI prophylaxis Pepcid Thank you for this consultation we will continue to follow patient closely throughout stay I performed an examination of the patient and discussed their management with the Nurse Practitioner. I have reviewed the Nurse Practitioner's notes and agree with the documented findings and plan of care
[2019-05-22 11:45] LABS: Glucose,Whole Blood 134 mg/dL (75-99)
[2019-05-22 12:03] VITALS: BP 121/67; TEMP 98.3
--- NOTE | 2019-05-22 13:28 | P.PN ---
Subjective Progress Note Date: 05/22/19 Principal diagnosis: Obstructive sleep apnea on CPAP Severe COPD and chronic persistent asthma Morbid obesity Abdominal aortic aneurysm status post graft postop day #0 Hypercoagulable state related to prominent thrombin gene mutation History of DVT Coronary artery disease with history of stents Chronic adrenal insufficiency 05/22/2019, patient seen eval reexamined during the rounds feeling better denies any chest pain or shortness of breath able to get up and move around denies any discomfort and operative site he has been doing well with the CPAP machine slept majority of the night last night, patient does seems to get better sleep on sides than nonsupine posture where pressure probably needs to be adjusted somewhat anxious today wants to get out of here it appears that surgical service has cleared him for discharge from pulmonary and sleep standpoint he is stable for discharge as well labs reviewed medications reviewed care plan discussed with staff at length This is a 73-year-old well-known to me patient has a long-standing history of multiple medical problems including recurrent DVT with a history of prothrombin gene mutation, patient has severe obstructive sleep apnea has been on CPAP he has severe COPD chronic recurrent sinopulmonary infections with history of coronary artery disease patient has an enlarging aortic aneurysm and was admitted electively for graft postoperatively patient developed some shortness of breath and wheezing however he did responded well with CPAP along with bronchodilator he is resting comfortably on CPAP in ICU he has been resumed on not only CPAP but Pulmicort and DuoNeb as well he has been resumed on his [facility] home medicine including hydrocortisone for chronic adrenal insufficiency Objective - Vital Signs Vital signs: Vital Signs Temp 98.3 F 05/22/19 12:00 Pulse 87 05/22/19 12:00 Resp 23 05/22/19 12:00 BP 121/67 05/22/19 12:00 Pulse Ox 94 L 05/22/19 12:00 Intake & Output 05/21/19 05/22/19 05/22/19 18:59 06:59 18:59 Intake Total 2455 900 85 Output Total 450 1475 1350 Balance 2004 9 Weight 158.9 kg Intake: IV 2455 900 85 Sodium Chloride 0.9% 1, 375 900 85 000 ml @ 75 mls/hr IV . [id number] [facility] Rx#:[id number] Output: Urine 450 1475 1350 Other: Voiding Method Indwelling Catheter Indwelling Catheter Urinal ABP, PAP, CO, CI - Last Documented Arterial Blood Pressure 160/62 - Exam Constitutional General appearance: disheveled, mild distress, morbidly obese - EENT Eyes: EOMI, PERRLA, normal appearance ENT: hearing grossly normal Ears: bilateral: normal - Neck Carotids: bilateral: upstroke normal Thyroid: bilateral: normal size - Respiratory Respiratory: bilateral: CTA - Cardiovascular Rhythm: regular Heart sounds: normal: S1, S2 - Gastrointestinal General gastrointestinal: decreased bowel sounds, soft - Integumentary Integumentary: normal turgor - Neurologic Neurologic: CNII-XII intact - Musculoskeletal Musculoskeletal: gait normal, generalized weakness, strength equal bilaterally - Psychiatric Psychiatric: A&O x's 3, appropriate affect, intact judgment & insight - Labs CBC & Chem 7: 05/22/19 05:10 05/22/19 05:10 Labs: Abnormal Lab Results - Last 24 Hours (Table) 05/21/19 05/21/19 05/21/19 Range/Units 07:50 13:55 16:35 WBC (3.8-10.6) k/uL Neutrophils # (1.3-7.7) k/uL Monocytes # (0-1.0) k/uL Basophils # (0-0.2) k/uL Sodium (137-145) mmol/L Glucose (74-99) mg/dL POC Glucose (mg/dL) 145 H 112 H (75-99) mg/dL Hemoglobin A1c 6.1 H (4.0-6.0) % 05/21/19 05/22/19 05/22/19 Range/Units 20:33 05:10 05:10 WBC 12.4 H (3.8-10.6) k/uL Neutrophils # 9.5 H (1.3-7.7) k/uL Monocytes # 1.1 H (0-1.0) k/uL Basophils # 0.4 H (0-0.2) k/uL Sodium 133 L (137-145) mmol/L Glucose 126 H (74-99) mg/dL POC Glucose (mg/dL) 154 H (75-99) mg/dL Hemoglobin A1c (4.0-6.0) % 05/22/19 05/22/19 Range/Units 06:53 11:43 WBC (3.8-10.6) k/uL Neutrophils # (1.3-7.7) k/uL Monocytes # (0-1.0) k/uL Basophils # (0-0.2) k/uL Sodium (137-145) mmol/L Glucose (74-99) mg/dL POC Glucose (mg/dL) 145 H 134 H (75-99) mg/dL Hemoglobin A1c (4.0-6.0) % Assessment and Plan Assessment: Obstructive sleep apnea on CPAP Severe COPD and chronic persistent asthma Morbid obesity Abdominal aortic aneurysm status post graft postop day #0 Hypercoagulable state related to prominent thrombin gene mutation History of DVT Coronary artery disease with history of stents Chronic adrenal insufficiency Plan: Agree with discharge planning, care plan discussed Plan as above bronchodilator CPAP continue home medications follow clinical course closely further recommendations pending, and adjustment of CPAP pressure on outpatient basis Time with Patient: Greater than 30
[2019-05-22 13:29] VITALS: PULSE 90; RESP 18
--- NOTE | 2019-05-22 22:13 | P.OP ---
Date of Procedure: 05/21/19 Preoperative Diagnosis: Infrarenal AAA, Bilateral Iliac artery aneurysms Postoperative Diagnosis: Same Procedure(s) Performed: Endovascular Aortic and Iliac artery aneurysm repair with [place] Iliac branched Excluder Ultrasound guided bilateral femoral artery access with percutaneous closure Implants: [place] Iliac branched excluder [id number] Internal iliac artery stent [id number] [place] Main body excluder [id number] Ipsilateral limb extension with [id number] limb Anesthesia: AGNES Surgeon: Arnulfo Richards Human Resources Professional #1: Melanie Ramirez Estimated Blood Loss (ml): 25 Pathology: none sent Condition: stable Disposition: PACU Indications for Procedure: 73 year old gentleman with history of infrarenal AAA presented to the office originally with increasing size aneurysm and iliac artery aneurysms. His AAA had increased to 5.7cm with iliac artery aneurysm increasing to over 3cm. His iliac aneurysm extended to the bifurcation of the internal iliac artery on the right and therefore was in need of iliac branched graft device. He presents today for EVAR with GERRI. Description of Procedure: After written and informed consent was obtained from the patient and all risks, benefits, and complications were described the patient was brought to the rn labor delivery and laid in a supine position. His abdomen and groins were prepped and draped in the usual sterile fashion after appropriate anesthetic was performed by the anesthesiologist. Utilizing ultrasound guidance bilateral femoral arteries were accessed with a multipurpose needle. Guidewires were placed and Perclose closure devices were placed x 2 in each femoral artery followed by 8 bur[place] sheaths. The patient was then administered 8,000 units of heparin and followed with serial ACTs and redosed as needed to maintain ACT over 200's. . 035 glidewires were then placed through each sheath followed by angled glidecatheters and the wires were exchanged for stiff lunderquist wires bilaterally. 16 bur[place] sheaths were then placed in each femoral artery after the 8 [place] sheaths were removed. A snare catheter was then guided through the left femoral sheath above the bifurcation and a glidewired advantage wire was placed in a kulwinder fashion through the right femoral sheath and snared from the left femoral access. The iliac branched main device was then placed through the right femoral sheath into the right common iliac artery aneurysm. Angiogram was then obtained and the internal iliac artery takeoff was marked. Iliac main body was then deployed with the gate facing the internal iliac artery takeoff. Using the up and over wire the contralateral 16 [place] sheath was guided into the iliac branched main body. Through this sheath a glidewire was placed and the internal iliac artery was accessed. Once accessed a glide catheter was placed and angiogram was obtained with good intraluminal visulalization of the internal iliac artery. A Montoya wire was then placed and catheter was removed. A 12 bur[place] sheath was then guided into the internal iliac artery and measurements were obtained and a [id number] limb was placed into the internal iliac artery. A 14mm balloon was then placed and balloon angioplasty was performed across the overlaps. Angiogram was obtained demonstrating no areas of leak with good seal. The external iliac limb was then deployed and device was removed. Attention was then placed to the aorta and placing of the main body device. Pigtail catheter was placed over the lunderquist wire on the right after the 16 burundian sheath from the left femoral artery was retracted and redirected towards the a nolberto. The 12 burundian sheath and montoya wires were removed as well. Pigtail cathter was then used for aortogram to visualize the renal arteries and landing for the main body device. A [place] [id number] main body was chosen and deployed in the usual fashion just distal to the renal arteries. Once completed the gate was cannulated with a glidewire and pigtail was spun to assure appropriate cannulation. Measurements were then made and a bridge limb [id number] was then placed in usual fashion. The ipsilateral limb deployment was then completed and devices were removed. A pigtail catheter was placed up the left femoral sheath and retrograde angiogram was obtained and internal iliac artery was marked. A [id number] flared extension limb was chosen and deployed in the left iliac artery. Once completed a [place] molding balloon was utilized and all overlap areas and proximal device was ballooned to ensure seal. Final angiogram was then obtained through a pigtail catheter. No evidence of a type 1 or 3 endoleak was noted. A late type II endoleak was visualized from a lumbar vessel. All guidwires and catheters were then removed. The perclose devices were secured but there was still some bleeding therefore a 6 bur[place] angioseal was used for the right femoral artery and an 8 [place] angioseal was used for the left femoral artery for hemostasis. Hemostasis was ensured and the groins were then cleansed and dressings placed. The patient tolerated the procedure well, had palpable DP pulses at the conclusion of the procedure and was sent to PACU for recovery.
--- NOTE | 2019-05-24 11:04 | IR ---
EXAMINATION TYPE: IR stent intravas non coronary DATE OF EXAM: 05/21/2019 COMPARISON: NONE HISTORY: Fluoroscopy time. Fluoroscopy was provided to the referring clinician. 31.4 minutes of fluoroscopy provided.
== END 2019-05-22 13:25 | disposition home or self-care (01) | DRG 269 ==
LOC: 2ORMAIN 07:27 → 2SICU 12:47
PROVIDERS: ADMIT Surgery; ATTEND Surgery
PROC: 04V03FZ Restriction of Abdominal Aorta with Branched or Fenestrated Intraluminal Device, Three or More Arteries, Percutaneous Approach (ICD-10-PCS; principal; 2019-05-22)
DX: I71.4 Abdominal aortic aneurysm, without rupture (principal); D68.52 Prothrombin gene mutation; E27.40 Unspecified adrenocortical insufficiency; I72.3 Aneurysm of iliac artery; J44.9 Chronic obstructive pulmonary disease, unspecified; E66.01 Morbid (severe) obesity due to excess calories; D72.829 Elevated white blood cell count, unspecified; E78.5 Hyperlipidemia, unspecified; F17.210 Nicotine dependence, cigarettes, uncomplicated; G47.33 Obstructive sleep apnea (adult) (pediatric); I25.10 Atherosclerotic heart disease of native coronary artery without angina pectoris; K21.9 Gastro-esophageal reflux disease without esophagitis; R09.02 Hypoxemia; F41.9 Anxiety disorder, unspecified; R73.03 Prediabetes; R60.0 Localized edema; R73.9 Hyperglycemia, unspecified; I10 Essential (primary) hypertension; I73.9 Peripheral vascular disease, unspecified; K57.90 Diverticulosis of intestine, part unspecified, without perforation or abscess without bleeding; J45.30 Mild persistent asthma, uncomplicated; Z79.02 Long term (current) use of antithrombotics/antiplatelets; Z79.899 Other long term (current) drug therapy; Z86.718 Personal history of other venous thrombosis and embolism; Z95.5 Presence of coronary angioplasty implant and graft; Z87.01 Personal history of pneumonia (recurrent); Z90.49 Acquired absence of other specified parts of digestive tract; Z88.8 Allergy status to other drugs, medicaments and biological substances; Z85.46 Personal history of malignant neoplasm of prostate
CPT/HCPCS: 34705; 80048; 83036; 85025; 85347; 86850; 86900; 86901; 94640

== ENCOUNTER → 2019-06-24 | Outpatient (CLI) | payer MEDICARE, BC ==
--- NOTE | 2019-06-24 11:08 | CT ---
EXAMINATION TYPE: CT angio abdomen pelvis DATE OF EXAM: 06/24/2019 COMPARISON: None. HISTORY: Complication of vascular prosthetic device, newly placed stent May 21, 2019. CT DLP: 5597.3 mGycm, Automated Exposure Control for Dose Reduction was Utilized. CONTRAST: CTA scan of the abdomen and pelvis is performed without oral and without and with IV Contrast, patien t injected with 100 mL of Isovue 370. Stent graft protocol with 3-D reconstructed images created on a independent workstation and reviewed. FINDINGS: Vascular: There is aortobiiliac stent graft beginning at or just below renal arteries extending into internal and external iliac arteries on the right and terminating at level of distal common iliac art merna on the left. There is ione AAA up to 5.2 cm AP diameter axial image 58. Postcontrast images darcy w patency of the stent graft. There is ione aneurysm into the common iliac arteries up to 3.2 cm on the right axial image 68 and 2.4 cm on the left axial image 66. No areas of suspicious extraluminal enhancement clearly seen. Patent celiac artery, SMA, and bilateral single renal arteries. LUNG BASES: Coronary artery calcification and/or stents are present.. LIVER/GB: Cholecystectomy clips are noted. PANCREAS: No significant abnormality is seen. SPLEEN: Occasional tiny splenule in splenic hilum. ADRENALS: No significant abnormality is seen. KIDNEYS: Penile pump prosthesis with anterior right pelvic reservoir. BOWEL: Some diverticula in the left and sigmoid colon as well as transverse colon. PROSTATE/SEMINAL VESICLES: No gross abnormality seen. LYMPH NODES: No greater than 1cm abdominal or pelvic lymph nodes are appreciated. OSSEOUS STRUCTURES: Mild to moderate disc space narrowing with vacuum disc phenomenon L3-L4 level. Mu ltilevel spurring in the thoracic spine is present. OTHER: No significant additional abnormality is seen. IMPRESSION: Satisfactory positioning of aortobiiliac stent graft with patency through abdominal aorti c aneurysm up to 5.2 cm with common iliac artery extension. No CTA evidence for endoleak.
== END | disposition home or self-care (01) ==
LOC: RADCTMAIN 08:33
PROVIDERS: ATTEND Surgery
DX: I71.4 Abdominal aortic aneurysm, without rupture (principal); Z95.828 Presence of other vascular implants and grafts
CPT/HCPCS: 82565; 84520; 36415; 74174; Q9967

== ENCOUNTER → 2019-09-03 | Outpatient (CLI) | payer MEDICARE, BC ==
--- NOTE | 2019-09-03 12:24 | CT ---
EXAMINATION TYPE: CT brain wo con DATE OF EXAM: 09/03/2019 HISTORY: Dizziness. Unspecified visual disturbance CT DLP: 978.20 mGycm. Automated Exposure Control for Dose Reduction was Utilized. TECHNIQUE: CT scan of the head is performed without contrast. COMPARISON: CT brain November 25, 2016. FINDINGS: There is no acute intracranial hemorrhage or midline shift identified. There is diffuse v entricular and sulcal prominence consistent with diffuse age-related cerebral atrophy. There is low- attenuation in the periventricular white matter consistent with chronic small vessel ischemic change. There is persistent opacity filling the left sphenoid sinus image 15 remainder paranasal sinuses re main clear. Nasal septum remains slightly deviated to right of midline. The globes are intact bilater ally. IMPRESSION: No acute intracranial hemorrhage or midline shift. There is mild to moderate diffuse ag e-related cerebral atrophy and chronic small vessel ischemic change redemonstrated. No significant ch jodee from prior CT.
== END | disposition home or self-care (01) ==
LOC: RADCTMAIN 11:50
PROVIDERS: ATTEND Family Medicine
DX: G31.1 Senile degeneration of brain, not elsewhere classified (principal)
CPT/HCPCS: 70450

== ENCOUNTER → 2019-10-07 | Outpatient (CLI) | payer MEDICARE, BC ==
[2019-10-07 11:29] LABS: African American GFR (CKD) 69.1 (60.0-200.0); Albumin 3.8 g/dL (3.80-4.90); Albumin/Globulin Ratio 2.71 (1.60-3.17); Anion Gap 6.1 mmol/L (4.00-12.00); BUN/Creat Ratio 14.17 Ratio (12.00-20.00); Carbon Dioxide 32.9 mmol/L (21.6-31.8); Chol/HDL Ratio 4.74; Globulin 1.4 g/dL (1.6-3.3); LDL Cholesterol,Calculated 89.6 mg/dL (0.0-131.0); Non-African American GFR(CKD) 59.6 (60.0-200.0); Potassium 3.3 mmol/L (3.5-5.5); Total Bilirubin 0.5 mg/dL (0.2-1.2); Total Protein 5.2 g/dL (6.2-8.2); VLDL Calculation 26.4 mg/dL (5.00-40.00)
== END | disposition home or self-care (01) ==
LOC: LABWHC1 07:25
PROVIDERS: ATTEND Nurse Practitioner Adult Health
DX: I10 Essential (primary) hypertension (principal); I25.10 Atherosclerotic heart disease of native coronary artery without angina pectoris; E78.2 Mixed hyperlipidemia
CPT/HCPCS: 36415; 80053; 80061

== ENCOUNTER → 2019-10-22 | Outpatient (CLI) | payer MEDICARE, BC ==
[2019-10-22 16:42] LABS: African American GFR (CKD) 69.1 (60.0-200.0); Anion Gap 9.1 mmol/L (4.00-12.00); BUN/Creat Ratio 14.17 Ratio (12.00-20.00); Calcium 8.9 mg/dL (8.7-10.3); Carbon Dioxide 31.9 mmol/L (21.6-31.8); Non-African American GFR(CKD) 59.6 (60.0-200.0); Potassium 3.5 mmol/L (3.5-5.5)
== END | disposition home or self-care (01) ==
LOC: LABWHC1 10:56
PROVIDERS: ATTEND Internal Medicine Endocrinology, Diabetes & Metabolism
DX: E27.40 Unspecified adrenocortical insufficiency (principal); E78.6 Lipoprotein deficiency
CPT/HCPCS: 36415; 80048; 82024; 82533

== ENCOUNTER → 2019-10-31 | Outpatient (CLI) | payer MEDICARE, BC | END | disposition home or self-care (01) | LOC: LABWHC1 07:14 | PROVIDERS: ATTEND Internal Medicine Endocrinology, Diabetes & Metabolism | DX: D35.2 Benign neoplasm of pituitary gland (principal) | CPT/HCPCS: 36415; 82024; 82533 ==

== ENCOUNTER → 2019-12-04 | Outpatient (CLI) | payer MEDICARE, BC | END | disposition home or self-care (01) | LOC: LABWHC1 14:53 | PROVIDERS: ATTEND Internal Medicine Endocrinology, Diabetes & Metabolism | DX: D35.2 Benign neoplasm of pituitary gland (principal); E27.40 Unspecified adrenocortical insufficiency; R79.89 Other specified abnormal findings of blood chemistry; C61 Malignant neoplasm of prostate | CPT/HCPCS: 36415; 82024; 82533; 84153 ==

== ENCOUNTER → 2019-12-20 | Outpatient (CLI) | payer MEDICARE, BC ==
[2019-12-20 10:03] LABS: Basophils % (A) 0 %; Eosinophils % (A) 0 %; HGB 13.7 gm/dL (13.0-17.5); Lymphocytes # (A) 1.6 k/uL (1.0-4.8); Lymphocytes % (A) 18 %; MCH 31.1 pg (25.0-35.0); MCHC 32.5 g/dL (31.0-37.0); MCV 95.5 fL (80.0-100.0); Monocytes # (A) 0.7 k/uL (0-1.0); Monocytes % (A) 7 %; Neutrophils # (A) 6.6 k/uL (1.3-7.7); Neutrophils % (A) 71 %; Platelet Count 214 k/uL (150-450); RBC 4.39 m/uL (4.30-5.90); RDW 14.1 % (11.5-15.5); WBC 9.3 k/uL (3.8-10.6)
[2019-12-20 10:13] LABS: Appearance,Urine Clear (Clear); Bilirubin,Urine Negative (Negative); Blood,Urine Negative (Negative); Color,Urine Yellow; Glucose,Urine (UA) Negative (Negative); Ketones,Urine Negative (Negative); Leukocyte Esterase,Urine Negative (Negative); Nitrite,Urine Negative (Negative); PH, Urine 5.5 (5.0-8.0); Protein,Urine Negative (Negative); Specific Gravity,Urine 1.017 (1.001-1.035); Urobilinogen,Urine <2.0 mg/dL (<2.0)
[2019-12-20 10:25] LABS: Protein/Creatinine Ratio,Urine 0.04
[2019-12-20 15:46] LABS: % Iron Saturation 12.04 (15.00-50.00); Anion Gap 6.9 mmol/L (4.00-12.00); BUN/Creat Ratio 11.43 Ratio (12.00-20.00); Carbon Dioxide 32.1 mmol/L (21.6-31.8); Magnesium 1.8 mg/dL (1.5-2.4); Non-African American GFR(CKD) 49.1 (60.0-200.0); Phosphorus 2.6 mg/dL (2.4-5.1); Potassium 3.1 mmol/L (3.5-5.5); Uric Acid 9.1 mg/dL (3.7-8.7)
[2019-12-20 15:55] LABS: Ferritin 43.1 ng/mL (22.0-322.0)
== END | disposition home or self-care (01) ==
LOC: LABWHC1 09:12
PROVIDERS: ATTEND Internal Medicine Nephrology
DX: N18.3 Chronic kidney disease, stage 3 (moderate) (principal); E55.9 Vitamin D deficiency, unspecified; E21.3 Hyperparathyroidism, unspecified; M10.9 Gout, unspecified; N39.0 Urinary tract infection, site not specified; D64.9 Anemia, unspecified
CPT/HCPCS: 36415; 80048; 81003; 82040; 82570; 82728; 83540; 83550; 83735; 83970; 84100; 84156; 84550; 85025

== ENCOUNTER → 2020-01-14 | Outpatient (CLI) | payer MEDICARE, BC ==
[2020-01-14 12:32] LABS: Basophils % (A) 0 %; Eosinophils # (A) 0.1 k/uL (0-0.7); Eosinophils % (A) 1 %; HCT 43.1 % (39.0-53.0); HGB 13.8 gm/dL (13.0-17.5); Lymphocytes # (A) 1.8 k/uL (1.0-4.8); Lymphocytes % (A) 20 %; MCH 30.9 pg (25.0-35.0); MCV 96.8 fL (80.0-100.0); Mean Platelet Volume 7.7; Monocytes # (A) 0.7 k/uL (0-1.0); Monocytes % (A) 8 %; Neutrophils # (A) 6.1 k/uL (1.3-7.7); Neutrophils % (A) 68 %; Platelet Count 216 k/uL (150-450); RBC 4.45 m/uL (4.30-5.90); RDW 14.2 % (11.5-15.5); WBC 9.1 k/uL (3.8-10.6)
[2020-01-14 18:57] LABS: Albumin 3.9 g/dL (3.80-4.90); Albumin/Globulin Ratio 2.17 (1.60-3.17); Anion Gap 8.7 mmol/L (4.00-12.00); BUN/Creat Ratio 8.57 Ratio (12.00-20.00); Calcium 9.1 mg/dL (8.7-10.3); Carbon Dioxide 31.3 mmol/L (21.6-31.8); Globulin 1.8 g/dL (1.6-3.3); Magnesium 1.9 mg/dL (1.5-2.4); Non-African American GFR(CKD) 49.1 (60.0-200.0); Potassium 3.7 mmol/L (3.5-5.5); Total Bilirubin 0.5 mg/dL (0.3-1.2); Total Protein 5.7 g/dL (6.2-8.2)
== END | disposition home or self-care (01) ==
LOC: LABWHC1 10:43
PROVIDERS: ATTEND Internal Medicine Nephrology
DX: I12.9 Hypertensive chronic kidney disease with stage 1 through stage 4 chronic kidney disease, or unspecified chronic kidney disease (principal); N18.3 Chronic kidney disease, stage 3 (moderate); Z79.899 Other long term (current) drug therapy
CPT/HCPCS: 36415; 80053; 83735; 85025

== ENCOUNTER → 2020-03-02 | Outpatient (CLI) | payer MEDICARE, BC ==
[2020-03-02 11:48] LABS: Appearance,Urine Clear (Clear); Bilirubin,Urine Negative (Negative); Blood,Urine Negative (Negative); Color,Urine Light Yellow; Glucose,Urine (UA) Negative (Negative); Ketones,Urine Negative (Negative); Leukocyte Esterase,Urine Negative (Negative); Nitrite,Urine Negative (Negative); Protein,Urine Negative (Negative); Specific Gravity,Urine 1.003 (1.001-1.035); Urobilinogen,Urine <2.0 mg/dL (<2.0)
[2020-03-02 12:01] LABS: Protein/Creatinine Ratio,Urine 0.522
[2020-03-02 18:03] LABS: Anion Gap 6.8 mmol/L (4.00-12.00); BUN/Creat Ratio 11.43 Ratio (12.00-20.00); Calcium 8.8 mg/dL (8.7-10.3); Carbon Dioxide 31.2 mmol/L (21.6-31.8); Magnesium 1.9 mg/dL (1.5-2.4); Non-African American GFR(CKD) 49.1 (60.0-200.0); Phosphorus 3.1 mg/dL (2.4-5.1); Potassium 3.5 mmol/L (3.5-5.5); Uric Acid 9.4 mg/dL (3.7-8.7)
[2020-03-02 18:12] LABS: Ferritin 44.7 ng/mL (22.0-322.0)
== END | disposition home or self-care (01) ==
LOC: LABWHC1 10:18
PROVIDERS: ATTEND Internal Medicine Nephrology
DX: N18.3 Chronic kidney disease, stage 3 (moderate) (principal); M10.9 Gout, unspecified; N39.0 Urinary tract infection, site not specified; R80.9 Proteinuria, unspecified; E55.9 Vitamin D deficiency, unspecified; N25.81 Secondary hyperparathyroidism of renal origin
CPT/HCPCS: 36415; 80048; 81003; 82040; 82570; 82728; 83735; 83970; 84100; 84156; 84550

== ENCOUNTER → 2020-03-23 | Outpatient (CLI) | payer MEDICARE, BC ==
[2020-03-23 14:05] LABS: Basophils % (A) 0 %; Eosinophils # (A) 0.2 k/uL (0-0.7); Eosinophils % (A) 2 %; HCT 44.1 % (39.0-53.0); HGB 13.9 gm/dL (13.0-17.5); Lymphocytes # (A) 2.3 k/uL (1.0-4.8); Lymphocytes % (A) 24 %; MCH 30.6 pg (25.0-35.0); MCHC 31.5 g/dL (31.0-37.0); MCV 97.2 fL (80.0-100.0); Mean Platelet Volume 7.6; Monocytes # (A) 0.7 k/uL (0-1.0); Monocytes % (A) 8 %; Neutrophils % (A) 63 %; Platelet Count 221 k/uL (150-450); RBC 4.54 m/uL (4.30-5.90); RDW 14.5 % (11.5-15.5); WBC 9.5 k/uL (3.8-10.6)
[2020-03-23 14:16] LABS: Appearance,Urine Clear (Clear); Bilirubin,Urine Negative (Negative); Blood,Urine Negative (Negative); Color,Urine Light Yellow; Glucose,Urine (UA) Negative (Negative); Ketones,Urine Negative (Negative); Leukocyte Esterase,Urine Negative (Negative); Nitrite,Urine Negative (Negative); PH, Urine 6.5 (5.0-8.0); Protein,Urine Negative (Negative); Specific Gravity,Urine 1.008 (1.001-1.035); Urobilinogen,Urine <2.0 mg/dL (<2.0)
[2020-03-23 14:37] LABS: Protein/Creatinine Ratio,Urine 0.219
[2020-03-23 17:51] LABS: % Iron Saturation 19.61 (15.00-50.00); Anion Gap 5.8 mmol/L (4.00-12.00); BUN/Creat Ratio 9.29 Ratio (12.00-20.00); Carbon Dioxide 32.2 mmol/L (21.6-31.8); Magnesium 1.9 mg/dL (1.5-2.4); Non-African American GFR(CKD) 49.1 (60.0-200.0); Phosphorus 3.5 mg/dL (2.4-5.1); Potassium 3.7 mmol/L (3.5-5.5)
[2020-03-23 18:01] LABS: Ferritin 49.6 ng/mL (22.0-322.0)
== END | disposition home or self-care (01) ==
LOC: LABWHC1 12:48
PROVIDERS: ATTEND Nurse Practitioner Family
DX: N18.3 Chronic kidney disease, stage 3 (moderate) (principal); E21.3 Hyperparathyroidism, unspecified; E55.9 Vitamin D deficiency, unspecified; M10.9 Gout, unspecified; N39.0 Urinary tract infection, site not specified; D63.1 Anemia in chronic kidney disease
CPT/HCPCS: 36415; 80048; 81003; 82040; 82306; 82570; 82728; 83540; 83550; 83735; 83970; 84100; 84156; 84550; 85025

== ENCOUNTER → 2020-04-28 | Outpatient (CLI) | payer MEDICARE, BC | END | disposition home or self-care (01) | LOC: LABWHC1 13:17 | PROVIDERS: ATTEND Internal Medicine Endocrinology, Diabetes & Metabolism | DX: D35.2 Benign neoplasm of pituitary gland (principal) | CPT/HCPCS: 36415; 82024; 82533 ==

== ENCOUNTER → 2020-05-13 | Outpatient (CLI) | payer MEDICARE, BC ==
[2020-05-13 16:31] LABS: Albumin 4.1 g/dL (3.80-4.90); Albumin/Globulin Ratio 2.28 (1.60-3.17); Anion Gap 4.7 mmol/L (4.00-12.00); BUN/Creat Ratio 12.86 Ratio (12.00-20.00); Calcium 9.3 mg/dL (8.7-10.3); Carbon Dioxide 34.3 mmol/L (21.6-31.8); Chol/HDL Ratio 4.77; Globulin 1.8 g/dL (1.6-3.3); Non-African American GFR(CKD) 49.1 (60.0-200.0); Potassium 3.9 mmol/L (3.5-5.5); Total Bilirubin 0.5 mg/dL (0.3-1.2); Total Protein 5.9 g/dL (6.2-8.2)
== END | disposition home or self-care (01) ==
LOC: LABWHC1 07:20
PROVIDERS: ATTEND Nurse Practitioner Adult Health
DX: I10 Essential (primary) hypertension (principal); E78.2 Mixed hyperlipidemia
CPT/HCPCS: 36415; 80053; 80061

== ENCOUNTER → 2020-06-15 | Outpatient (CLI) | payer MEDICARE, BC ==
[2020-06-15 15:39] LABS: African American GFR (CKD) 52.4 (60.0-200.0); Anion Gap 7.9 mmol/L (4.00-12.00); BUN/Creat Ratio 9.33 Ratio (12.00-20.00); Carbon Dioxide 30.1 mmol/L (21.6-31.8); Non-African American GFR(CKD) 45.2 (60.0-200.0); Potassium 3.5 mmol/L (3.5-5.5)
== END | disposition home or self-care (01) ==
LOC: LABWHC1 10:43
PROVIDERS: ATTEND Nurse Practitioner Family
DX: N18.3 Chronic kidney disease, stage 3 (moderate) (principal)
CPT/HCPCS: 36415; 80048

== ENCOUNTER → 2020-10-21 | Outpatient (CLI) | payer MEDICARE, BC ==
[2020-10-23 11:15] LABS: % Iron Saturation 12.94 (15.00-50.00)
== END | disposition home or self-care (01) ==
LOC: LABWHC1 14:06
PROVIDERS: ATTEND Internal Medicine Endocrinology, Diabetes & Metabolism
DX: E27.40 Unspecified adrenocortical insufficiency (principal); I10 Essential (primary) hypertension; R53.83 Other fatigue; R23.2 Flushing
CPT/HCPCS: 36415; 82024; 82533

== ENCOUNTER → 2020-11-13 | Outpatient (CLI) | payer MEDICARE, BC ==
[2020-11-13 17:51] LABS: African American GFR (CKD) 44.7 (60.0-200.0); Albumin 4.2 g/dL (3.80-4.90); Albumin/Globulin Ratio 2.33 (1.60-3.17); Anion Gap 10.2 mmol/L (4.00-12.00); BUN/Creat Ratio 9.41 Ratio (12.00-20.00); Calcium 9.3 mg/dL (8.7-10.3); Carbon Dioxide 27.8 mmol/L (21.6-31.8); Chol/HDL Ratio 5.54; Globulin 1.8 g/dL (1.6-3.3); LDL Cholesterol,Calculated 68.4 mg/dL (0.0-131.0); Non-African American GFR(CKD) 38.6 (60.0-200.0); Potassium 4.5 mmol/L (3.5-5.5); Total Bilirubin 0.7 mg/dL (0.2-1.2); VLDL Calculation 49.6 mg/dL (5.00-40.00)
== END | disposition home or self-care (01) ==
LOC: LABWHC1 06:59
PROVIDERS: ATTEND Internal Medicine Interventional Cardiology
DX: E78.2 Mixed hyperlipidemia (principal)
CPT/HCPCS: 36415; 80053; 80061

== ENCOUNTER → 2020-12-02 | Outpatient (CLI) | payer MEDICARE, BC ==
[2020-12-03 02:04] LABS: African American GFR (CKD) 48.1 (60.0-200.0); Anion Gap 9.7 mmol/L (4.00-12.00); BUN/Creat Ratio 8.75 Ratio (12.00-20.00); Calcium 9.7 mg/dL (8.7-10.3); Carbon Dioxide 27.3 mmol/L (21.6-31.8); Non-African American GFR(CKD) 41.5 (60.0-200.0); Potassium 4.2 mmol/L (3.5-5.5)
== END | disposition home or self-care (01) ==
LOC: LABWHC1 11:24
PROVIDERS: ATTEND Nurse Practitioner Adult Health
DX: N18.9 Chronic kidney disease, unspecified (principal)
CPT/HCPCS: 36415; 80048

== ENCOUNTER → 2020-12-29 | Outpatient (CLI) | payer MEDICARE, BC ==
--- NOTE | 2020-12-29 11:19 | CT ---
EXAMINATION TYPE: CT brain wo con DATE OF EXAM: 12/29/2020 COMPARISON: CT 09/03/2019 HISTORY: facial droop, bells palsy vs stroke CT DLP: 1121 mGycm Automated exposure control for dose reduction was used. Helical imaging through the brain FINDINGS: Cortical atrophy is again noted, periventricular patchy low-attenuation is again seen similar to prio r exam. There is no evident hemorrhage or hydrocephalus. 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
== END | disposition home or self-care (01) ==
LOC: RADCTMAIN 10:44
PROVIDERS: ATTEND Family Medicine
DX: R29.810 Facial weakness (principal)
CPT/HCPCS: 70450

== ENCOUNTER → 2021-04-26 | Outpatient (CLI) | payer MEDICARE, BC ==
[2021-04-26 12:21] LABS: Albumin 3.9 g/dL (3.80-4.90); Albumin/Globulin Ratio 1.95 (1.60-3.17); Anion Gap 5.5 mmol/L (4.00-12.00); Calcium 9.1 mg/dL (8.7-10.3); Carbon Dioxide 28.5 mmol/L (21.6-31.8); Chol/HDL Ratio 5.42; LDL Cholesterol,Calculated 69.4 mg/dL (0.0-131.0); Non-African American GFR(CKD) 44.9 (60.0-200.0); Potassium 4.2 mmol/L (3.5-5.5); Total Bilirubin 0.6 mg/dL (0.3-1.2); Total Protein 5.9 g/dL (6.2-8.2); VLDL Calculation 45.6 mg/dL (5.00-40.00)
== END | disposition home or self-care (01) ==
LOC: LABWHC1 07:52
PROVIDERS: ATTEND Nurse Practitioner Adult Health
DX: I10 Essential (primary) hypertension (principal); E78.2 Mixed hyperlipidemia
CPT/HCPCS: 36415; 80053; 80061

== ENCOUNTER → 2021-08-30 | Outpatient (CLI) | payer MEDICARE, BC ==
[2021-08-30 11:42] LABS: ALT 22 U/L (10-49); AST 15 U/L (14-35); African American GFR (CKD) 61.9 (60.0-200.0); Albumin 3.9 g/dL (3.8-4.9); Albumin/Globulin Ratio 1.95 (1.60-3.17); Alkaline Phosphatase 111 U/L (41-126); BUN/Creat Ratio 10.92 Ratio (12.00-20.00); Blood Urea Nitrogen 14.2 mg/dL (9.0-27.0); Calcium 9.1 mg/dL (8.7-10.3); Carbon Dioxide 25.4 mmol/L (20.0-27.5); Chloride 105 mmol/L (96-109); Chol/HDL Ratio 6.11 Ratio; Glucose 139 mg/dL (70-110); LDL Cholesterol,Calculated 75.6 mg/dL (0.0-131.0); Non-African American GFR(CKD) 53.4 (60.0-200.0); Sodium 143 mmol/L (135-145); Total Protein 5.9 g/dL (6.2-8.2)
== END | disposition home or self-care (01) ==
LOC: LABWHC1 08:18
PROVIDERS: ATTEND Nurse Practitioner Adult Health
DX: I12.9 Hypertensive chronic kidney disease with stage 1 through stage 4 chronic kidney disease, or unspecified chronic kidney disease (principal); N18.9 Chronic kidney disease, unspecified; E78.2 Mixed hyperlipidemia
CPT/HCPCS: 36415; 80053; 80061

== ENCOUNTER → 2021-11-02 | Outpatient (CLI) | payer MEDICARE, BC ==
[2021-11-02 15:26] LABS: Prolactin 11.5 ng/mL (2.100-17.700)
== END | disposition home or self-care (01) ==
LOC: LABWHC1 08:56
PROVIDERS: ATTEND Internal Medicine Endocrinology, Diabetes & Metabolism
DX: E27.40 Unspecified adrenocortical insufficiency (principal)
CPT/HCPCS: 36415; 82024; 82533; 84146; 84403

== ENCOUNTER → 2022-02-24 | Outpatient (CLI) | payer MEDICARE, BC ==
[2022-02-24 10:53] LABS: ALT 24 U/L (10-49); AST 15 U/L (14-35); African American GFR (CKD) 56.2 (60.0-200.0); Albumin 3.8 g/dL (3.8-4.9); Alkaline Phosphatase 102 U/L (41-126); BUN/Creat Ratio 8.14 Ratio (12.00-20.00); Blood Urea Nitrogen 11.4 mg/dL (9.0-27.0); Calcium 9.1 mg/dL (8.7-10.3); Carbon Dioxide 28.9 mmol/L (20.0-27.5); Chloride 105 mmol/L (96-109); Chol/HDL Ratio 5.09 Ratio; Glucose 142 mg/dL (70-110); LDL Cholesterol,Calculated 83.7 mg/dL (0.0-131.0); Non-African American GFR(CKD) 48.5 (60.0-200.0); Sodium 143 mmol/L (135-145); Total Protein 5.8 g/dL (6.2-8.2)
== END | disposition home or self-care (01) ==
LOC: LABWHC1 07:21
PROVIDERS: ATTEND Nurse Practitioner Adult Health
DX: I10 Essential (primary) hypertension (principal); E78.2 Mixed hyperlipidemia
CPT/HCPCS: 36415; 80053; 80061

== ENCOUNTER 2022-04-11 14:21 | Inpatient (IN) | payer MEDICARE, BC ==
--- NOTE | 2022-04-11 14:52 | ED ---
General Adult HPI - General Chief complaint: Weakness Stated complaint: Weakness Time Seen by Provider: 04/11/22 14:24 Source: patient, EMS Mode of arrival: EMS Limitations: physical limitation - History of Present Illness Initial comments: Dictation was produced using [employer] dictation software. please excuse any grammatical, word or spelling errors. Chief Complaint: 76-year-old male presents emergency department for fall and weakness History of Present Illness: Patient is a 76-year-old male he is past medical history of COPD, DVT pneumonia. Presents to the year today after he fell. Patient states that his legs are getting weak and he tried to walk down was steps in his garage when he felt like one of his legs gave out. He fell trying to catch himself on his vehicle and then falling to the ground. Denies any loss of consciousness. Patient had enough strength to get back up and call EMS. He is then brought to the emergency department. Patient denies any pain complaints at this time. Patient states she's been feeling weak for the last 3-4 weeks. He is currently being evaluated for cancer due to her recent unexplained weight loss and adenopathy. The ROS documented in this emergency department record has been reviewed and confirmed by me. Those systems with pertinent positive or negative responses have been documented in the HPI. All other systems are other negative and/or noncontributory. PHYSICAL EXAM: General Impression: Alert and oriented x3, not in acute distress HEENT: Normocephalic atraumatic, extra-ocular movements intact, pupils equal and reactive to light bilaterally, mucous membranes moist. Cardiovascular: Heart regular rate and rhythm Chest: Able to complete full sentences, no retractions, no tachypnea Abdomen: abdomen soft, non-tender, non-distended, no organomegaly Musculoskeletal: Pulses present and equal in all extremities, no peripheral edema Motor: no focal deficits noted Neurological: CN II-XII grossly intact, no focal motor or sensory deficits noted Skin: Intact with no visualized rashes Psych: Normal affect and mood ED course: 76-year-old male presents to the emergency department after episode of lower extremity weakness and fall. Vital signs upon arrival shows heart rate of 101, rest of vital signs within acceptable limits. Abdomen evaluation obtained. CBC unremarkable. Coag panel is negative. Metabolic panel is negative. Urinalysis shows no acute processes. Negative for carotid virus and influenza. This x-ray shows no acute traumatic processes how ever there does appear to be multifocal patchy interstitial opacities. Pelvis x-rays unremarkable. Computed tomography scan of the head and C-spine shows no acute traumatic injuries. Patient observed in the emergency department for approximately 3 hours and 43 minutes. Patient had episode while standing when he became hypoxic into the mid 80s. Chart review was further evaluated. Patient does have history of respiratory disease with history of hypoxia, COPD and obstructive sleep apnea. Patient given advice for concerns of respiratory infection. Given azithromycin and ceftriaxone. Patient does have a history of DVT and is not currently on any anticoagulation medications. CT angios the chest ordered. Patient will be admitted for hypoxic respiratory failure. [facility]. CT angios the chest was ordered due to persistent tachycardia and history of DVTs. CT angios shows no evidence of pulmonary embolism. There is a period be adrenal nodules suspicious for oncologic process. EKG interpretation: Ventricular rate 100, sinus tachycardia,. Interval 187, QS 150, QTc 397. No IL prolongation, no QTC prolongation, no ST or T-wave changes noted. EKG compared to 05/21/2019 showing no changes. Overall, this EKG is unremarkable - Related Data Home Medications Medication Instructions Recorded Confirmed Albuterol Inhaler [Ventolin Hfa 2 puff INHALATION RT-Q4H PRN 05/13/19 04/11/22 Inhaler] Cetirizine HCl [Zyrtec] 10 mg PO DAILY 05/13/19 04/11/22 Clopidogrel Bisulfate [Plavix] 75 mg PO DAILY 05/13/19 04/11/22 Ergocalciferol [Vitamin D2 50,000 unit PO Q14D 05/13/19 04/11/22 (DRISDOL)] Ezetimibe [Zetia] 10 mg PO HS 05/13/19 04/11/22 Isosorbide Mononitrate [Isosorbide 30 mg PO DAILY 05/13/19 04/11/22 Mononitrate ER] Montelukast [Singulair] 10 mg PO HS 05/13/19 04/11/22 Pantoprazole Sodium [Protonix] 40 mg PO BID 05/13/19 04/11/22 cycloSPORINE 0.05% OPHTH SOLN 1 applicator BOTH EYES BID 05/13/19 04/11/22 [Restasis] Gabapentin 600 mg PO TID 11/10/21 04/11/22 Potassium Chloride [K-Tab ER] 20 meq PO BID 11/10/21 04/11/22 Torsemide [Demadex] 20 mg PO DAILY 11/10/21 04/11/22 Vitamin B Complex 1 cap PO HS 11/10/21 04/11/22 calcitrioL [Calcitriol] 0.25 mcg PO DIRECTED 11/10/21 04/11/22 Acetaminophen-Codeine 300-30mg 1 - 2 tab PO Q6H PRN 04/11/22 04/11/22 [Tylenol w/codeine #3] Budesonide [Pulmicort] 0.5 mg INHALATION RT-BID 04/11/22 04/11/22 Chlorhexidine Gluconate [Peridex] 15 ml PO BID 04/11/22 04/11/22 Fluticasone Nasal [place] [Flonase 2 spray EA NOSTRIL DAILY PRN 04/11/22 04/11/22 Nasal [place]] Glimepiride [Amaryl] 0.5 mg PO AC-BRKFST 04/11/22 04/11/22 Ipratropium-Albuterol Nebulize 3 ml INHALATION RT-BID 04/11/22 04/11/22 [Duoneb 0.5 mg-3 mg/3 ml Soln] Metoprolol Tartrate [Lopressor] 12.5 mg PO BID 04/11/22 04/11/22 Torsemide [Demadex] 10 mg PO Q48H 04/11/22 04/11/22 allopurinoL [Allopurinol] 300 mg PO HS 04/11/22 04/11/22 diazePAM [Valium] 5 mg PO DAILY PRN 04/11/22 04/11/22 prednisoLONE ACETATE 1% OPHTH 1 drops LEFT EYE BID 04/11/22 04/11/22 [Pred Forte 1%] traMADol HCL 50 mg PO Q8H PRN 04/11/22 04/11/22 traZODone HCL [Desyrel] 50 - 100 mg PO HS PRN 04/11/22 04/11/22 Allergies Allergy/AdvReac Type Severity Reaction Status Date / Time cyclobenzaprine Allergy Facial Verified 04/11/22 17:03 [From Flexeril] Swelling Qmdwpom-AIX-WfS Reductase Allergy Unknown Verified 04/11/22 17:03 Inhibitor [Lnrivvf-Sxe-Ouv Reductase Inhibitor] Review of Systems ROS Statement: Those systems with pertinent positive or pertinent negative responses have been documented in the HPI. ROS Other: All systems not noted in ROS Statement are negative. Past Medical History Past Medical History: Blood Disorder, Chest Pain / Angina, COPD, Deep Vein Thrombosis (DVT), GERD/Reflux, Pneumonia, Renal Disease, Sleep Apnea/CPAP/BIPAP Additional Past Medical History / Comment(s): abdominal aortic aneursym. prothr ombin gene mutation. has cpap machine. prediabetic,hx diverticulitis, sinus problems with drainage, adrenal insufficiency History of Any Multi-Drug Resistant Organisms: MRSA Date of last positivie culture/infection: 2015 MDRO Source:: back Past Surgical History: Appendectomy, Bowel Resection, Cholecystectomy, Heart Catheterization With Stent, Hernia Repair, Prostate Surgery Additional Past Surgical History / Comment(s): growth removed from side. heart cath x2 with 3-4 stents Past Anesthesia/Blood Transfusion Reactions: Motion Sickness Date of Last Stent Placement:: 2014 Past Psychological History: Anxiety Smoking Status: Current every day smoker Past Alcohol Use History: None Reported Past Drug Use History: None Reported - Past Family History Mother Family Medical History: No Reported History General Exam Limitations: physical limitation Course Vital Signs 04/11/22 04/11/22 04/11/22 14:23 14:54 16:27 Temperature 98.7 F 99.2 F Pulse Rate 101 H 99 100 Respiratory 18 20 20 Rate Blood Pressure 119/75 119/75 119/75 O2 Sat by Pulse 92 L 91 L 92 L Oximetry 04/11/22 04/11/22 16:50 16:54 Temperature Pulse Rate 110 H Respiratory 22 18 Rate Blood Pressure 145/68 O2 Sat by Pulse 85 L Oximetry Medical Decision Making - Lab Data Result diagrams: 04/11/22 14:59 04/11/22 14:59 Lab Results 04/11/22 04/11/22 04/11/22 Range/Units 14:59 14:59 14:59 WBC 10.3 (3.8-10.6) k/uL RBC 4.24 L (4.30-5.90) m/uL Hgb 13.6 (13.0-17.5) gm/dL Hct 41.2 (39.0-53.0) % MCV 97.1 (80.0-100.0) fL MCH 32.1 (25.0-35.0) pg MCHC 33.1 (31.0-37.0) g/dL RDW 13.8 (11.5-15.5) % Plt Count 198 (150-450) k/uL MPV 8.5 Neutrophils % 74 % Lymphocytes % 13 % Monocytes % 8 % Eosinophils % 1 % Basophils % 1 % Neutrophils # 7.7 (1.3-7.7) k/uL Lymphocytes # 1.4 (1.0-4.8) k/uL Monocytes # 0.8 (0-1.0) k/uL Eosinophils # 0.1 (0-0.7) k/uL Basophils # 0.1 (0-0.2) k/uL PT 11.0 (9.0-12.0) sec INR 1.0 (<1.2) APTT 25.9 (22.0-30.0) sec Sodium (137-145) mmol/L Potassium (3.5-5.1) mmol/L Chloride (98-107) mmol/L Carbon Dioxide (22-30) mmol/L Anion Gap mmol/L BUN (9-20) mg/dL Creatinine (0.66-1.25) mg/dL Est GFR (CKD-EPI)AfAm (>60 ml/min/1.73 sqM) Est GFR (CKD-EPI)NonAf (>60 ml/min/1.73 sqM) Glucose (74-99) mg/dL Plasma Lactic Acid Matt (0.7-2.0) mmol/L Calcium (8.4-10.2) mg/dL Magnesium (1.6-2.3) mg/dL Total Bilirubin (0.2-1.3) mg/dL AST (17-59) U/L ALT (4-49) U/L Alkaline Phosphatase (38-126) U/L Total Protein (6.3-8.2) g/dL Albumin (3.5-5.0) g/dL TSH (0.465-4.680) mIU/L Urine Color Yellow Urine Appearance Clear (Clear) Urine pH 7.0 (5.0-8.0) Ur Specific Rudolph 1.012 (1.001-1.035) Urine Protein Negative (Negative) Urine Glucose (UA) Negative (Negative) Urine Ketones Negative (Negative) Urine Blood Negative (Negative) Urine Nitrite Negative (Negative) Urine Bilirubin Negative (Negative) Urine Urobilinogen <2.0 (<2.0) mg/dL Ur Leukocyte Esterase Negative (Negative) Coronavirus (PCR) (Not Detectd) Influenza Type A RNA (Not Detectd) Influenza Type B (PCR) (Not Detectd) 04/11/22 04/11/22 04/11/22 Range/Units 14:59 14:59 17:12 WBC (3.8-10.6) k/uL RBC (4.30-5.90) m/uL Hgb (13.0-17.5) gm/dL Hct (39.0-53.0) % MCV (80.0-100.0) fL MCH (25.0-35.0) pg MCHC (31.0-37.0) g/dL RDW (11.5-15.5) % Plt Count (150-450) k/uL MPV Neutrophils % % Lymphocytes % % Monocytes % % Eosinophils % % Basophils % % Neutrophils # (1.3-7.7) k/uL Lymphocytes # (1.0-4.8) k/uL Monocytes # (0-1.0) k/uL Eosinophils # (0-0.7) k/uL Basophils # (0-0.2) k/uL PT (9.0-12.0) sec INR (<1.2) APTT (22.0-30.0) sec Sodium 136 L (137-145) mmol/L Potassium 3.5 (3.5-5.1) mmol/L Chloride 101 (98-107) mmol/L Carbon Dioxide 28 (22-30) mmol/L Anion Gap 7 mmol/L BUN 16 (9-20) mg/dL Creatinine 1.24 (0.66-1.25) mg/dL Est GFR (CKD-EPI)AfAm 65 (>60 ml/min/1.73 sqM) Est GFR (CKD-EPI)NonAf 57 (>60 ml/min/1.73 sqM) Glucose 96 (74-99) mg/dL Plasma Lactic Acid Matt 1.6 (0.7-2.0) mmol/L Calcium 8.4 (8.4-10.2) mg/dL Magnesium 1.9 (1.6-2.3) mg/dL Total Bilirubin 0.8 (0.2-1.3) mg/dL AST 46 (17-59) U/L ALT 40 (4-49) U/L Alkaline Phosphatase 159 H (38-126) U/L Total Protein 5.8 L (6.3-8.2) g/dL Albumin 3.2 L (3.5-5.0) g/dL TSH 2.900 (0.465-4.680) mIU/L Urine Color Urine Appearance (Clear) Urine pH (5.0-8.0) Ur Specific Rudolph (1.001-1.035) Urine Protein (Negative) Urine Glucose (UA) (Negative) Urine Ketones (Negative) Urine Blood (Negative) Urine Nitrite (Negative) Urine Bilirubin (Negative) Urine Urobilinogen (<2.0) mg/dL Ur Leukocyte Esterase (Negative) Coronavirus (PCR) (Not Detectd) Influenza Type A RNA Not Detected (Not Detectd) Influenza Type B (PCR) Not Detected (Not Detectd) 04/11/22 Range/Units 17:20 WBC (3.8-10.6) k/uL RBC (4.30-5.90) m/uL Hgb (13.0-17.5) gm/dL Hct (39.0-53.0) % MCV (80.0-100.0) fL MCH (25.0-35.0) pg MCHC (31.0-37.0) g/dL RDW (11.5-15.5) % Plt Count (150-450) k/uL MPV Neutrophils % % Lymphocytes % % Monocytes % % Eosinophils % % Basophils % % Neutrophils # (1.3-7.7) k/uL Lymphocytes # (1.0-4.8) k/uL Monocytes # (0-1.0) k/uL Eosinophils # (0-0.7) k/uL Basophils # (0-0.2) k/uL PT (9.0-12.0) sec INR (<1.2) APTT (22.0-30.0) sec Sodium (137-145) mmol/L Potassium (3.5-5.1) mmol/L Chloride (98-107) mmol/L Carbon Dioxide (22-30) mmol/L Anion Gap mmol/L BUN (9-20) mg/dL Creatinine (0.66-1.25) mg/dL Est GFR (CKD-EPI)AfAm (>60 ml/min/1.73 sqM) Est GFR (CKD-EPI)NonAf (>60 ml/min/1.73 sqM) Glucose (74-99) mg/dL Plasma Lactic Acid Matt (0.7-2.0) mmol/L Calcium (8.4-10.2) mg/dL Magnesium (1.6-2.3) mg/dL Total Bilirubin (0.2-1.3) mg/dL AST (17-59) U/L ALT (4-49) U/L Alkaline Phosphatase (38-126) U/L Total Protein (6.3-8.2) g/dL Albumin (3.5-5.0) g/dL TSH (0.465-4.680) mIU/L Urine Color Urine Appearance (Clear) Urine pH (5.0-8.0) Ur Specific Rudolph (1.001-1.035) Urine Protein (Negative) Urine Glucose (UA) (Negative) Urine Ketones (Negative) Urine Blood (Negative) Urine Nitrite (Negative) Urine Bilirubin (Negative) Urine Urobilinogen (<2.0) mg/dL Ur Leukocyte Esterase (Negative) Coronavirus (PCR) Not Detected (Not Detectd) Influenza Type A RNA (Not Detectd) Influenza Type B (PCR) (Not Detectd) Disposition Clinical Impression: Fall, Respiratory failure with hypoxia Disposition: ADMITTED IP TO THIS HOSP Condition: Serious Is patient prescribed a controlled substance at d/c from ED?: No Decision Time: 19:06
[2022-04-11 15:14] LABS: Basophils # (A) 0.1 k/uL (0-0.2); Basophils % (A) 1 %; Eosinophils # (A) 0.1 k/uL (0-0.7); Eosinophils % (A) 1 %; HCT 41.2 % (39.0-53.0); HGB 13.6 gm/dL (13.0-17.5); Lymphocytes # (A) 1.4 k/uL (1.0-4.8); Lymphocytes % (A) 13 %; MCH 32.1 pg (25.0-35.0); MCHC 33.1 g/dL (31.0-37.0); MCV 97.1 fL (80.0-100.0); Mean Platelet Volume 8.5; Monocytes # (A) 0.8 k/uL (0-1.0); Monocytes % (A) 8 %; Neutrophils # (A) 7.7 k/uL (1.3-7.7); Neutrophils % (A) 74 %; Platelet Count 198 k/uL (150-450); RBC 4.24 m/uL (4.30-5.90); RDW 13.8 % (11.5-15.5); WBC 10.3 k/uL (3.8-10.6)
[2022-04-11 15:23] LABS: Albumin 3.2 g/dL (3.5-5.0); Calcium 8.4 mg/dL (8.4-10.2); Magnesium 1.9 mg/dL (1.6-2.3); Potassium 3.5 mmol/L (3.5-5.1); Total Bilirubin 0.8 mg/dL (0.2-1.3); Total Protein 5.8 g/dL (6.3-8.2)
[2022-04-11 15:25] LABS: Partial Thromboplastin Time 25.9 sec (22.0-30.0)
--- NOTE | 2022-04-11 15:52 | CT ---
EXAMINATION TYPE: CT brain soraya wo con DATE OF EXAM: 04/11/2022 COMPARISON: 12/29/2020 HISTORY: 76-year-old male pain after fall CT DLP: 1572.9 mGycm Automated exposure control for dose reduction was used. Technique: Examination of the head was done in axial plane without intravenous contrast. Coronal and sagittal reconstructions performed. CT of the cervical spine was obtained in axial plane without intravenous injection of contrast mater ial. Coronal and sagittal reformatted images were obtained from the axial views for evaluation of f ractures, spinal alignment and canal. FINDINGS: Head: There is no evidence of acute intracranial hemorrhage, acute ischemic changes, mass, mass-effect, or extra-axial fluid collection. There is no effacement of cerebral sulci or basal subarachnoid cister ns. There is no hydrocephalus. There is no midline shift. Orr-white matter distinction is preserv ed. Scattered atherosclerotic calcifications within the carotid siphons. Prior FESS. Scattered mucosal thickening throughout the ethmoid air cells and to a lesser degree with in the maxillary sinuses. Mastoid air cells are well pneumatized. Orbits and globes are intact. Cervical spine: No craniocervical junction abnormalities, predental space widening, or prevertebral soft tissue swell ing. Advanced degenerative change at the C1 dens articulation. Degenerative grade 1 anterolisthesis C4-C5. Remaining alignment is maintained. There is some anterior endplate bridging spondylosis at C5-T1 levels. Posterior disc bulges at C3-C4 and C4-C5 impress on the ventral thecal sac without significant spinal canal stenosis seen. Some nonspecific heterotopic ossification posterior midline at C4 and C5 levels. No acute fracture seen of the cervical spine. Scattered facet and uncovertebral joint arthropathy. Changes result in variable mild to moderate neur al foraminal stenosis. Emphysematous changes. Visualized upper lungs. Sagittal and coronal reformatted images confirm above findings. COMBINED IMPRESSION: 1. No acute intracranial abnormality seen. 2. No acute fracture of the cervical spine. Degenerative grade 1 anterolisthesis at C4-C5 with modera te multilevel spondylotic change.
--- NOTE | 2022-04-11 15:59 | XR ---
EXAMINATION TYPE: XR chest 2V, XR pelvis AP view DATE OF EXAM: 04/11/2022 COMPARISON: None HISTORY: 76-year-old male with pain after fall FINDINGS: Chest: Heart borderline in size. Diffuse interstitial changes with patchy opacities throughout the right alex g and left mid and lower lung. No air leak or pleural effusion seen. DISH within the lower thoracic s pine. Pelvis: Surgical clips both sides of the pelvis. Extensive vascular stenting distal abdominal aorta and iliac arteries. Moderate degenerative change of the hips. Osteopenia. SI joints appear symmetric and intac t. IMPRESSION: 1. Chest: Multifocal patchy and interstitial opacities. Unable to exclude patchy pneumonia, pulmonary vascular congestion, or underlying abnormal soft tissue opacity. Short interval follow-up recommende d after any potential treatment to ensure clearance. If the opacities persist, CT can further evaluat e. 2. Pelvis: Mild bilateral hip OA. No displaced fracture identified.
[2022-04-11] MEDS ORDERED: SODIUM CHLORIDE 0.9% 1,000 ML IV STA (16:49)
[2022-04-11 17:16] LABS: Appearance,Urine Clear (Clear); Bilirubin,Urine Negative (Negative); Blood,Urine Negative (Negative); Color,Urine Yellow; Glucose,Urine (UA) Negative (Negative); Ketones,Urine Negative (Negative); Leukocyte Esterase,Urine Negative (Negative); Nitrite,Urine Negative (Negative); Protein,Urine Negative (Negative); Specific Gravity,Urine 1.012 (1.001-1.035); Urobilinogen,Urine <2.0 mg/dL (<2.0)
[2022-04-11] MEDS ORDERED: AZITHROMYCIN 500 MG in SODIUM CHLORIDE 0.9% 250 ML IVPB STA (17:41)
[2022-04-11] MEDS ORDERED: cefTRIAXone IN SWFI 1,000 MG/10 ML SYRINGE IVP STA (17:41)
[2022-04-11] MEDS ORDERED: DEXAMETHASONE SOD PHOSPHATE 10 MG/ML 1 ML VIAL IV STA (17:42)
[2022-04-11] MEDS ORDERED: NALOXONE 0.4 MG/ML 1 ML VIAL IV PRN (17:59)
[2022-04-11] MEDS ORDERED: SODIUM CHLORIDE 0.9% 1,000 ML IV SCH (18:00)
[2022-04-11] MEDS: NICOTINE 21MG/24HR PATCH TRANSDERM SCH (18:50)
--- NOTE | 2022-04-11 18:57 | CT ---
EXAMINATION TYPE: CT angio chest CT DLP: 745.5 mGycm, Automated exposure control for dose reduction was used. DATE OF EXAM: 04/11/2022 6:39 PM COMPARISON: CT chest 12/25/2013 CLINICAL INDICATION:Male, 76 years old with history of suspect PE; Tachycardic, SOB. Pt having labore d breathing and not able to follow breathing instructions. TECHNIQUE/CONTRAST: CTA scan of the thorax is performed with IV Contrast, patient injected with 80 mL of Isovue 370, pulm onary embolism protocol. MIP images are created and reviewed. FINDINGS: Pulmonary Artery: There is no evidence for a filling defect within the pulmonary vasculature to sugge st acute pulmonary embolism. The pulmonary artery is of normal size. Lungs/Pleura: Centrilobular emphysema changes are present. There are nodules within the lungs, in the right upper lobe up 2.9 cm and the left lower lobe measuring up to 2.2 cm both which demonstrate sp iculated borders. There is right pulmonary hilum conglomerate lymphadenopathy measuring up to 4.3 x 2 .3 cm. No evidence of focal consolidation, pleural effusion or pneumothorax. Airway: Large airways are patent. Heart: The heart is mildly enlarged for size. There is moderate atherosclerosis of the coronary arter ial vasculature. Vasculature: No evidence of aortic aneurysm. Mediastinum: Borderline enlarged lymph node adjacent to the pulmonary trunk and left pulmonary hilum measuring up to 9 mm in short axis. Right lobe paratracheal lymph node measuring enlarged 1.7 cm in s hort axis. Musculoskeletal: No acute osseous abnormalities Soft Tissues: Unremarkable. Lower neck: No significant findings. Upper Abdomen: Diffuse low-attenuation to the liver parenchyma. Indeterminate right adrenal nodule me asuring up to 1.8 cm. IMPRESSION: 1. No evidence of pulmonary embolism. 2. Pulmonary nodules in the right upper lobe and left lower lobe lung with right pulmonary hilum and mediastinal lymphadenopathy concerning for malignancy with metastatic disease. 3. Indeterminate right adrenal nodule measuring 1.8 cm, may represent benign or malignant etiologies and could be secondary to metastatic disease from #2. 4. COPD changes. 5. Hepatic steatosis. 6. Moderate atherosclerosis of the coronary arteries.
[2022-04-11] MEDS ORDERED: diazePAM 5 MG/ML 1 ML VIAL IVP STA (23:20)
[2022-04-12 08:45] VITALS: TEMP 98.4
[2022-04-12 10:54] VITALS: RESP 18
[2022-04-12 10:55] VITALS: BP 118/60
[2022-04-12] MEDS ORDERED: IPRATROPIUM-ALBUTEROL 3 ML NEB INHALATION PRN (12:00)
[2022-04-12] MEDS ORDERED: diazePAM 5 MG TAB PO PRN (12:01)
[2022-04-12] MEDS ORDERED: traMADol 50 MG TAB PO PRN (12:01)
[2022-04-12] MEDS ORDERED: Acetaminophen-Codeine 300-30mg TAB PO PRN (12:01)
[2022-04-12] MEDS ORDERED: traZODone HCL 50 MG TAB PO PRN (12:01)
[2022-04-12] MEDS ORDERED: FLUTICASONE 50MCG/SPRAY NASAL 16GM EA NOSTRIL PRN (12:01)
--- NOTE | 2022-04-12 12:12 | P.HPIM ---
History of Present Illness Patient is a pleasant 76-year-old male came in with complaints of generalized weakness and shortness of breath found to be in COPD exacerbation. Patient had a CT of the chest which did not show any pneumonia but did show pulmonary n odules. Patient felt like his legs gave up. Patient is also depressed because of the home situation and his son being in an accident yesterday. Patient had a low-grade fever at home. Patient does have history of COPD. CT angios the chest did not show any pulmonary embolism but did show a pulmonary nodule in the right upper lobe left lower lobe right pulmonary hilum, mediastinal lymphadenopathy as well as a nodule in the adrenal gland. Patient does have some emphysematous changes. Also company of sinus drainage stuffy nose, was also complaining of for some possible dental infection along with the tingling numbness in the chin area REVIEW OF SYSTEMS: CONSTITUTIONAL: No fever, no malaise, no fatigue. HEENT: No recent visual problems or hearing problems. Denied any sore throat. CARDIOVASCULAR: No chest pain, orthopnea, PND, no palpitations, no syncope. PULMONARY: As mentioned in HPI GASTROINTESTINAL: No diarrhea, no nausea, no vomiting, no abdominal pain. NEUROLOGICAL: No headaches, no weakness, no numbness. HEMATOLOGICAL: Denies any bleeding or petechiae. GENITOURINARY: Denies any burning micturition, frequency, or urgency. MUSCULOSKELETAL/RHEUMATOLOGICAL: Denies any joint pain, swelling, or any muscle pain. ENDOCRINE: Denies any polyuria or polydipsia. The rest of the 14-point review of systems is negative. PHYSICAL EXAMINATION: GENERAL: The patient is alert and oriented x3, not in any acute distress. Obese HEENT: Pupils are round and equally reacting to light. EOMI. No scleral icterus. No conjunctival pallor. Normocephalic, atraumatic. No pharyngeal erythema. No thyromegaly. CARDIOVASCULAR: S1 and S2 present. No murmurs, rubs, or gallops. PULMONARY: Expiratory wheezing on exam bilateral rhonchi ABDOMEN: Soft, nontender, nondistended, normoactive bowel sounds. No palpable organomegaly. MUSCULOSKELETAL: No joint swelling or deformity. EXTREMITIES: No cyanosis, clubbing, or pedal edema. NEUROLOGICAL: Gross neurological examination did not reveal any focal deficits. SKIN: No rashes. Assessment and plan Acute hypoxic and hypercapnic respiratory failure secondary to COPD exacerbation patient is presently on 2 L of oxygen doesn't use any oxygen at home patient was started on steroids and inhalational treatments patient probably has bronchitis. -Possible dental infection for which we'll start him on Augmentin which also has sinusitis and the bronchitis. -Multiple pulmonary nodules possibility of metastatic lung cancer will need bio psy with bronchoscopy -Possible abdominal aortic aneurysm with stent in the past -Possible chronic diastolic dysfunction patient is on diuretics not in heart failure exacerbation at this time -Gastroesophageal reflux disease -Coronary artery disease with stents in the past -Obesity with sleep apnea -Hyperlipidemia -Fatty liver disease. -Type 2 diabetes mellitus blood sugars are expected to follow because the systemic steroids patient will be started on sliding scale and will also continue with glimepiride DVT prophylaxis: Lovenox Past Medical History Past Medical History: Blood Disorder, Chest Pain / Angina, COPD, Deep Vein Thrombosis (DVT), GERD/Reflux, Pneumonia, Renal Disease, Sleep Apnea/CPAP/BIPAP Additional Past Medical History / Comment(s): abdominal aortic aneursym. prothrombin gene mutation. has cpap machine. prediabetic,hx diverticulitis, sinus problems with drainage, adrenal insufficiency History of Any Multi-Drug Resistant Organisms: MRSA Date of last positivie culture/infection: 2015 MDRO Source:: back Past Surgical History: Appendectomy, Bowel Resection, Cholecystectomy, Heart Catheterization With Stent, Hernia Repair, Prostate Surgery Additional Past Surgical History / Comment(s): growth removed from side. heart cath x2 with 3-4 stents Past Anesthesia/Blood Transfusion Reactions: Motion Sickness Date of Last Stent Placement:: 2014 Past Psychological History: Anxiety Smoking Status: Current every day smoker Past Alcohol Use History: None Reported Past Drug Use History: None Reported - Past Family History Mother Family Medical History: No Reported History Medications and Allergies Home Medications Medication Instructions Recorded Confirmed Type Albuterol Inhaler [Ventolin Hfa 2 puff INHALATION RT-Q4H PRN 05/13/19 04/11/22 History Inhaler] Cetirizine HCl [Zyrtec] 10 mg PO DAILY 05/13/19 04/11/22 History Clopidogrel Bisulfate [Plavix] 75 mg PO DAILY 05/13/19 04/11/22 History Ergocalciferol [Vitamin D2 50,000 unit PO Q14D 05/13/19 04/11/22 History (DRISDOL)] Ezetimibe [Zetia] 10 mg PO HS 05/13/19 04/11/22 History Isosorbide Mononitrate [Isosorbide 30 mg PO DAILY 05/13/19 04/11/22 History Mononitrate ER] Montelukast [Singulair] 10 mg PO HS 05/13/19 04/11/22 History Pantoprazole Sodium [Protonix] 40 mg PO BID 05/13/19 04/11/22 History cycloSPORINE 0.05% OPHTH SOLN 1 applicator BOTH EYES BID 05/13/19 04/11/22 History [Restasis] Gabapentin 600 mg PO TID 11/10/21 04/11/22 History Potassium Chloride [K-Tab ER] 20 meq PO BID 11/10/21 04/11/22 History Torsemide [Demadex] 20 mg PO DAILY 11/10/21 04/11/22 History Vitamin B Complex 1 cap PO HS 11/10/21 04/11/22 History calcitrioL [Calcitriol] 0.25 mcg PO DIRECTED 11/10/21 04/11/22 History Acetaminophen-Codeine 300-30mg 1 - 2 tab PO Q6H PRN 04/11/22 04/11/22 History [Tylenol w/codeine #3] Budesonide [Pulmicort] 0.5 mg INHALATION RT-BID 04/11/22 04/11/22 History Chlorhexidine Gluconate [Peridex] 15 ml PO BID 04/11/22 04/11/22 History Fluticasone Nasal [place] [Flonase 2 spray EA NOSTRIL DAILY PRN 04/11/22 04/11/22 History Nasal [place]] Glimepiride [Amaryl] 0.5 mg PO AC-BRKFST 04/11/22 04/11/22 History Ipratropium-Albuterol Nebulize 3 ml INHALATION RT-BID 04/11/22 04/11/22 History [Duoneb 0.5 mg-3 mg/3 ml Soln] Metoprolol Tartrate [Lopressor] 12.5 mg PO BID 04/11/22 04/11/22 History Torsemide [Demadex] 10 mg PO Q48H 04/11/22 04/11/22 History allopurinoL [Allopurinol] 300 mg PO HS 04/11/22 04/11/22 History diazePAM [Valium] 5 mg PO DAILY PRN 04/11/22 04/11/22 History prednisoLONE ACETATE 1% OPHTH 1 drops LEFT EYE BID 04/11/22 04/11/22 History [Pred Forte 1%] traMADol HCL 50 mg PO Q8H PRN 04/11/22 04/11/22 History traZODone HCL [Desyrel] 50 - 100 mg PO HS PRN 04/11/22 04/11/22 History Allergies Allergy/AdvReac Type Severity Reaction Status Date / Time cyclobenzaprine Allergy Facial Verified 04/11/22 17:03 [From Flexeril] Swelling Dcvrjzl-HIT-ZtF Reductase Allergy Unknown Verified 04/11/22 17:03 Inhibitor [Fwkcnct-Nwb-Kcu Reductase Inhibitor] Physical Exam Vitals: Vital Signs Temp Pulse Resp BP Pulse Ox 04/12/22 10:54 98 18 118/60 94 L 04/12/22 09:40 98 18 92 L 04/12/22 08:43 98.4 F 92 20 127/71 94 L 04/12/22 07:00 97 18 92 L 04/11/22 16:54 18 04/11/22 16:50 110 H 22 145/68 85 L 04/11/22 16:27 100 20 119/75 92 L 04/11/22 14:54 99.2 F 99 20 119/75 91 L 04/11/22 14:23 98.7 F 101 H 18 119/75 92 L Results CBC & Chem 7: 04/11/22 14:59 04/11/22 14:59 Labs: Abnormal Lab Results - Last 24 Hours (Table) 04/11/22 04/11/22 Range/Units 14:59 14:59 RBC 4.24 L (4.30-5.90) m/uL Sodium 136 L (137-145) mmol/L Alkaline Phosphatase 159 H (38-126) U/L Total Protein 5.8 L (6.3-8.2) g/dL Albumin 3.2 L (3.5-5.0) g/dL
[2022-04-12] MEDS ORDERED: LORATADINE 10 MG TAB PO SCH (12:15)
[2022-04-12] MEDS ORDERED: INSULIN ASPART (NovoLOG) 100 UNIT/ML VIAL SQ SCH (12:30)
[2022-04-12] MEDS ORDERED: methylPREDNISolone SOD SUCCI 40 MG/ML 1 ML VIAL IV SCH (12:30)
[2022-04-12] MEDS ORDERED: AMOXIC-POT CLAV 875-125MG 1 EACH TAB PO SCH (12:30)
[2022-04-12] MEDS: IPRATROPIUM-ALBUTEROL 3 ML NEB INHALATION SCH ×2 (13:20→16:18)
[2022-04-12 13:29] LABS: Glucose,Whole Blood 159 mg/dL (70-110)
[2022-04-12] MEDS: NICOTINE 21MG/24HR PATCH TRANSDERM SCH (14:25)
[2022-04-12] MEDS ORDERED: GABAPENTIN 300 MG CAP PO SCH (16:00)
[2022-04-12 16:26] VITALS: PULSE 92
--- NOTE | 2022-04-12 18:34 | P.CNPUL ---
History of Present Illness Consult date: 04/12/22 Reason for consult: dyspnea, cough, hypoxemia, lung mass, abnormal CXR/CT Chief complaint: Generalized weakness and fall History of present illness: Patient is a 76-year-old male with the history of sleep disorder breathing and sleep apnea well-known to me and follow with me on outpatient basis. Has been compliant with the CPAP machine. Patient presented into the hospital with severe weakness and legs giving out and fell down while he was getting out of the vehicle never lost his consciousness noted dizziness or lightheadedness patient states that he is been very weak. Patient has been evaluated for loss of weight in last few weeks by primary care provider x-rays and CAT scan revealed presence of lung nodules. Workup has been done at [facility] reports and x-rays are not available to review one week ago patient noted a growth in the right lateral part of the neck next her sternocleidomastoi d muscle patient is scheduled for a PET scan as well. As well as there are plans underway over there for biopsy. Patient describes his being sick due to back issues as well as son is involved in the motor vehicle accident. Patient has been very upset and emotional does not want to stay in the hospital his oxygen saturation is 92% on room air breathing comfortably able to get up and move around without any support. He has been in emergency department for last 27 hours. I was notified about his presence around noontime today. His workup includes a CBC performed yesterday white cell count was 10,300 with a hemoglobin and hematocrit 13/41, platelet count 198, chemistry within normal l imit except mild hyponatremia of 136 and hypokalemia 3.5 BUN and creatinine 16 and 1.2, alk phos is 159, urinalysis unremarkable, influenza A as well as covert is negative. Chest x-ray performed revealed patchy interstitial opacities suggestive of pneumonia versus pulmonary congestion soft tissue density cannot be excluded. Computed tomography scan of the chest performed later on yesterday afternoon revealed 2.9 cm nodule in right upper lobe, 2.2 cm in left lower lobe, lymphadenopathy of 4.32.3 cm noted in right hilar region, right adrenal nodule 1.8 cm. Computed tomography scan of the head negative for any acute intracranial abnormality no acute C-spine disease seen except DJD and C4 5 level Review of Systems All systems: negative Past Medical History Past Medical History: Blood Disorder, Chest Pain / Angina, COPD, Deep Vein Thrombosis (DVT), GERD/Reflux, Pneumonia, Renal Disease, Sleep Apnea/CPAP/BIPAP Additional Past Medical History / Comment(s): abdominal aortic aneursym. prothrombin gene mutation. has cpap machine. prediabetic,hx diverticulitis, sinus problems with drainage, adrenal insufficiency History of Any Multi-Drug Resistant Organisms: MRSA Date of last positivie culture/infection: 2015 MDRO Source:: back Past Surgical History: Appendectomy, Bowel Resection, Cholecystectomy, Heart Catheterization With Stent, Hernia Repair, Prostate Surgery Additional Past Surgical History / Comment(s): growth removed from side. heart cath x2 with 3-4 stents Past Anesthesia/Blood Transfusion Reactions: Motion Sickness Date of Last Stent Placement:: 2014 Past Psychological History: Anxiety Smoking Status: Current every day smoker Past Alcohol Use History: None Reported Past Drug Use History: None Reported - Past Family History Mother Family Medical History: No Reported History Medications and Allergies Home Medications Medication Instructions Recorded Confirmed Type Albuterol Inhaler [Ventolin Hfa 2 puff INHALATION RT-Q4H PRN 05/13/19 04/11/22 History Inhaler] Cetirizine HCl [Zyrtec] 10 mg PO DAILY 05/13/19 04/11/22 History Clopidogrel Bisulfate [Plavix] 75 mg PO DAILY 05/13/19 04/11/22 History Ergocalciferol [Vitamin D2 50,000 unit PO Q14D 05/13/19 04/11/22 History (DRISDOL)] Ezetimibe [Zetia] 10 mg PO HS 05/13/19 04/11/22 History Isosorbide Mononitrate [Isosorbide 30 mg PO DAILY 05/13/19 04/11/22 History Mononitrate ER] Montelukast [Singulair] 10 mg PO HS 05/13/19 04/11/22 History Pantoprazole Sodium [Protonix] 40 mg PO BID 05/13/19 04/11/22 History cycloSPORINE 0.05% OPHTH SOLN 1 applicator BOTH EYES BID 05/13/19 04/11/22 History [Restasis] Gabapentin 600 mg PO TID 11/10/21 04/11/22 History Potassium Chloride [K-Tab ER] 20 meq PO BID 11/10/21 04/11/22 History Torsemide [Demadex] 20 mg PO DAILY 11/10/21 04/11/22 History Vitamin B Complex 1 cap PO HS 11/10/21 04/11/22 History calcitrioL [Calcitriol] 0.25 mcg PO DIRECTED 11/10/21 04/11/22 History Acetaminophen-Codeine 300-30mg 1 - 2 tab PO Q6H PRN 04/11/22 04/11/22 History [Tylenol w/codeine #3] Budesonide [Pulmicort] 0.5 mg INHALATION RT-BID 04/11/22 04/11/22 History Chlorhexidine Gluconate [Peridex] 15 ml PO BID 04/11/22 04/11/22 History Fluticasone Nasal [place] [Flonase 2 spray EA NOSTRIL DAILY PRN 04/11/22 04/11/22 History Nasal [place]] Glimepiride [Amaryl] 0.5 mg PO AC-BRKFST 04/11/22 04/11/22 History Ipratropium-Albuterol Nebulize 3 ml INHALATION RT-BID 04/11/22 04/11/22 History [Duoneb 0.5 mg-3 mg/3 ml Soln] Metoprolol Tartrate [Lopressor] 12.5 mg PO BID 04/11/22 04/11/22 History Torsemide [Demadex] 10 mg PO Q48H 04/11/22 04/11/22 History allopurinoL [Allopurinol] 300 mg PO HS 04/11/22 04/11/22 History diazePAM [Valium] 5 mg PO DAILY PRN 04/11/22 04/11/22 History prednisoLONE ACETATE 1% OPHTH 1 drops LEFT EYE BID 04/11/22 04/11/22 History [Pred Forte 1%] traMADol HCL 50 mg PO Q8H PRN 04/11/22 04/11/22 History traZODone HCL [Desyrel] 50 - 100 mg PO HS PRN 04/11/22 04/11/22 History Allergies Allergy/AdvReac Type Severity Reaction Status Date / Time cyclobenzaprine Allergy Facial Verified 04/11/22 17:03 [From Flexeril] Swelling Hvpnkuf-JLU-VwT Reductase Allergy Unknown Verified 04/11/22 17:03 Inhibitor [Zqshazk-Wzg-Xii Reductase Inhibitor] Physical Exam Vitals: Vital Signs Temp Pulse Resp BP Pulse Ox 07/26/22 16:26 92 18 04/12/22 16:18 94 18 04/12/22 13:30 98 18 04/12/22 13:20 92 18 04/12/22 10:54 98 18 118/60 94 L 04/12/22 09:40 98 18 92 L 04/12/22 08:43 98.4 F 92 20 127/71 94 L 04/12/22 07:00 97 18 92 L - Constitutional General appearance: mild distress, morbidly obese - EENT Eyes: EOMI, PERRLA Ears: bilateral: normal - Neck Right-sided from mass noted nontender likely matted lymph nodes Neck: lymphadenopathy, normal ROM, other Carotids: bilateral: upstroke normal Thyroid: bilateral: normal size - Respiratory Respiratory: bilateral: CTA - Cardiovascular Rhythm: regular Heart sounds: normal: S1, S2 - Gastrointestinal General gastrointestinal: normal bowel sounds - Integumentary Integumentary: normal turgor - Neurologic Neurologic: CNII-XII intact - Musculoskeletal Musculoskeletal: gait normal, generalized weakness, strength equal bilaterally - Psychiatric Psychiatric: A&O x's 3, appropriate affect, intact judgment & insight Results - Laboratory Findings CBC and BMP: 04/11/22 14:59 04/11/22 14:59 PT/INR, D-dimer PT 11.0 sec (9.0-12.0) 04/11/22 14:59 INR 1.0 (<1.2) 04/11/22 14:59 Abnormal lab findings: Abnormal Labs 04/11/22 04/11/22 04/12/22 14:59 14:59 13:22 RBC 4.24 L Sodium 136 L POC Glucose (mg/dL) 159 H Alkaline Phosphatase 159 H Total Protein 5.8 L Albumin 3.2 L - Diagnostic Findings Chest x-ray: report reviewed, image reviewed CT scan - chest: report reviewed, image reviewed (Findings as dictated above) Assessment and Plan Assessment: Fall related to generalized weakness and some contribute patient from electrolyte imbalance of hypokalemia and hyponatremia appears to be present as well Generalized weakness and weight loss of recent in last few weeks appeared to be associated with lung nodules Bilateral lung nodules and mediastinal lymphadenopathy most likely metastatic lung cancer Right cervical lymph node Acute on chronic hypoxic history failure Morbid obesity Sleep disorder breathing and sleep apnea Plan: I have discussed with Mr. Burk at length and emphasized the need of being hospitalized that would facilitate the diagnostic tests and biopsy, but patient refused he wants to go home however is agreeable to follow-up in the office tomorrow. We'll further discuss with him about options and further management plan and also obtain reports of workup done from [facility], discussed with the ER attending and staff Time with Patient: Greater than 30
[2022-04-12] MEDS ORDERED: IPRATROPIUM-ALBUTEROL 3 ML NEB INHALATION SCH (20:00)
[2022-04-12] MEDS ORDERED: BUDESONIDE 0.5 MG/2 ML NEBU INHALATION SCH (20:00)
[2022-04-12] MEDS ORDERED: CHLORHEXIDINE GLUCONATE 15 ML CUP MUCOUS MEM SCH (21:00)
[2022-04-12] MEDS ORDERED: METOPROLOL TARTRATE 12.5 MG TAB PO SCH (21:00)
[2022-04-12] MEDS ORDERED: cycloSPORINE 0.05% OPHTH 0.4 ML DROPERETTE BOTH EYES SCH (21:00)
[2022-04-12] MEDS ORDERED: MONTELUKAST 10 MG TAB PO SCH (21:00)
[2022-04-12] MEDS ORDERED: POTASSIUM CHLORIDE ER 20 MEQ TAB.ER PO SCH (21:00)
[2022-04-12] MEDS ORDERED: EZETIMIBE 10 MG TAB PO SCH (21:00)
[2022-04-12] MEDS ORDERED: prednisoLONE ACETATE 1% OPHTH DROPS 5 ML BTL LEFT EYE SCH (21:00)
[2022-04-12] MEDS ORDERED: allopurinoL 300 MG TAB PO SCH (21:00)
[2022-04-13] MEDS ORDERED: GLIMEPIRIDE 0.5 MG TAB PO SCH (07:30)
[2022-04-13] MEDS ORDERED: ISOSORBIDE MONONITRATE ER 30 MG TAB.ER.24H PO SCH (09:00)
[2022-04-13] MEDS ORDERED: TORSEMIDE 20 MG TAB PO SCH ×2 (09:00)
== END 2022-04-12 18:15 | disposition left against medical advice (07) | DRG 190 ==
LOC: EC 14:21 → 3SCARD 18:00 → 5NMEDONC 04-12 11:21
PROVIDERS: ADMIT Hospitalist; ATTEND Hospitalist
DX: J44.1 Chronic obstructive pulmonary disease with (acute) exacerbation (principal); J96.01 Acute respiratory failure with hypoxia; J96.02 Acute respiratory failure with hypercapnia; E87.1 Hypo-osmolality and hyponatremia; Z68.41 Body mass index [BMI] 40.0-44.9, adult; E27.40 Unspecified adrenocortical insufficiency; D68.52 Prothrombin gene mutation; C77.1 Secondary and unspecified malignant neoplasm of intrathoracic lymph nodes; C34.90 Malignant neoplasm of unspecified part of unspecified bronchus or lung; I50.32 Chronic diastolic (congestive) heart failure; Z53.29 Procedure and treatment not carried out because of patient's decision for other reasons; Z20.822 Contact with and (suspected) exposure to COVID-19; K21.9 Gastro-esophageal reflux disease without esophagitis; K76.0 Fatty (change of) liver, not elsewhere classified; M19.90 Unspecified osteoarthritis, unspecified site; I25.10 Atherosclerotic heart disease of native coronary artery without angina pectoris; Z79.02 Long term (current) use of antithrombotics/antiplatelets; Z79.899 Other long term (current) drug therapy; Z86.718 Personal history of other venous thrombosis and embolism; Z95.5 Presence of coronary angioplasty implant and graft; G47.30 Sleep apnea, unspecified; F41.9 Anxiety disorder, unspecified; F17.210 Nicotine dependence, cigarettes, uncomplicated; E87.6 Hypokalemia; E66.01 Morbid (severe) obesity due to excess calories; W19.XXXA Unspecified fall, initial encounter; E78.5 Hyperlipidemia, unspecified; E27.8 Other specified disorders of adrenal gland; E11.9 Type 2 diabetes mellitus without complications; Z88.8 Allergy status to other drugs, medicaments and biological substances; Z88.1 Allergy status to other antibiotic agents; Z87.19 Personal history of other diseases of the digestive system; Z90.49 Acquired absence of other specified parts of digestive tract; Z87.01 Personal history of pneumonia (recurrent)
CPT/HCPCS: 36415; 70450; 71046; 71275; 72125; 72170; 80053; 81003; 83605; 83735; 83880; 84443; 85025; 85610; 85730; 87502; 87635; 93005; 96365; 96375; 99285

== ENCOUNTER 2022-04-15 10:25 | Inpatient (IN) | payer MEDICARE, BC ==
--- NOTE | 2022-04-15 10:44 | ED ---
General Adult HPI - General Chief complaint: Shortness of Breath Stated complaint: SOB Time Seen by Provider: 04/15/22 10:25 Source: patient, EMS, RN notes reviewed, old records reviewed Mode of arrival: EMS Limitations: no limitations - History of Present Illness Initial comments: 76-year-old male, alert and oriented 4, presents to the emergency room with worsening generalized weakness and shortness of breath over the past 2 days. Patient was recently discharged from the hospital 2 days ago with similar symptoms with multiple falls. He is being tested for stage IV lung cancer per EMS. He lives at home with his . He is complaining of chronic low back pain but denies any chest pain. Patient appears dyspneic with oxygen saturation 79% on room air. -: days(s) (2) - Related Data Home Medications Medication Instructions Recorded Confirmed Albuterol Inhaler [Ventolin Hfa 2 puff INHALATION RT-Q4H PRN 05/13/19 04/15/22 Inhaler] Cetirizine HCl [Zyrtec] 10 mg PO DAILY 05/13/19 04/15/22 Clopidogrel Bisulfate [Plavix] 75 mg PO DAILY 05/13/19 04/15/22 Ezetimibe [Zetia] 10 mg PO HS 05/13/19 04/15/22 Isosorbide Mononitrate [Isosorbide 30 mg PO DAILY 05/13/19 04/15/22 Mononitrate ER] Montelukast [Singulair] 10 mg PO HS 05/13/19 04/15/22 Pantoprazole Sodium [Protonix] 40 mg PO BID 05/13/19 04/15/22 cycloSPORINE 0.05% OPHTH SOLN 1 drop BOTH EYES BID 05/13/19 04/15/22 [Restasis] Gabapentin 600 mg PO TID 11/10/21 04/15/22 Potassium Chloride [K-Tab ER] 20 meq PO BID 11/10/21 04/15/22 Torsemide [Demadex] 20 mg PO DAILY 11/10/21 04/15/22 Vitamin B Complex 1 cap PO HS 11/10/21 04/15/22 calcitrioL [Calcitriol] 0.25 mcg PO MOWEFR 11/10/21 04/15/22 Acetaminophen-Codeine 300-30mg 1 - 2 tab PO Q6H PRN 04/11/22 04/15/22 [Tylenol w/codeine #3] Budesonide [Pulmicort] 0.5 mg INHALATION RT-BID 04/11/22 04/15/22 Chlorhexidine Gluconate [Peridex] 15 ml PO BID 04/11/22 04/15/22 Fluticasone Nasal [place] [Flonase 2 spr EA NOSTRIL DAILY PRN 04/11/22 04/15/22 Nasal [place]] Glimepiride [Amaryl] 0.5 mg PO AC-BRKFST 04/11/22 04/15/22 Ipratropium-Albuterol Nebulize 3 ml INHALATION RT-BID 04/11/22 04/15/22 [Duoneb 0.5 mg-3 mg/3 ml Soln] Metoprolol Tartrate [Lopressor] 12.5 mg PO BID 04/11/22 04/15/22 Torsemide [Demadex] 10 mg PO Q48H 04/11/22 04/15/22 allopurinoL [Allopurinol] 300 mg PO HS 04/11/22 04/15/22 diazePAM [Valium] 5 mg PO DAILY PRN 04/11/22 04/15/22 prednisoLONE ACETATE 1% OPHTH 1 drop LEFT EYE BID 04/11/22 04/15/22 [Pred Forte 1%] traMADol HCL 50 mg PO Q8H PRN 04/11/22 04/15/22 traZODone HCL [Desyrel] 50 - 100 mg PO HS PRN 04/11/22 04/15/22 Ergocalciferol [Vitamin D2 (1250 1,250 mcg PO Q14D 04/15/22 04/15/22 Mcg = 13565 Iu)] Allergies Allergy/AdvReac Type Severity Reaction Status Date / Time cyclobenzaprine Allergy Facial Verified 04/15/22 10:42 [From Flexeril] Swelling Etcatbs-ZER-MuO Reductase Allergy Unknown Verified 04/15/22 10:42 Inhibitor [Fihlosa-Vje-Hpu Reductase Inhibitor] Review of Systems ROS Statement: Those systems with pertinent positive or pertinent negative responses have been documented in the HPI. ROS Other: All systems not noted in ROS Statement are negative. Past Medical History Past Medical History: Blood Disorder, Chest Pain / Angina, COPD, Deep Vein Thrombosis (DVT), GERD/Reflux, Pneumonia, Renal Disease, Sleep Apnea/CPAP/BIPAP Additional Past Medical History / Comment(s): abdominal aortic aneursym. prothrombin gene mutation. has cpap machine. prediabetic,hx diverticulitis, sinus problems with drainage, adrenal insufficiency History of Any Multi-Drug Resistant Organisms: MRSA Date of last positivie culture/infection: 2015 MDRO Source:: back Past Surgical History: Appendectomy, Bowel Resection, Cholecystectomy, Heart Catheterization With Stent, Hernia Repair, Prostate Surgery Additional Past Surgical History / Comment(s): growth removed from side. heart cath x2 with 3-4 stents Past Anesthesia/Blood Transfusion Reactions: Motion Sickness Date of Last Stent Placement:: 2014 Past Psychological History: Anxiety Smoking Status: Current every day smoker Past Alcohol Use History: None Reported Past Drug Use History: None Reported - Past Family History Mother Family Medical History: No Reported History General Exam Limitations: no limitations General appearance: alert, in no apparent distress Head exam: Present: atraumatic Eye exam: Absent: scleral icterus, conjunctival injection, periorbital swelling ENT exam: Present: mucous membranes dry Neck exam: Present: lymphadenopathy (right cervical). Absent: meningismus Respiratory exam: Present: respiratory distress, rhonchi. Absent: normal lung sounds bilaterally, stridor, chest wall tenderness, accessory muscle use Cardiovascular Exam: Present: tachycardia GI/Abdominal exam: Present: soft. Absent: distended, tenderness Extremities exam: Present: normal capillary refill, pedal edema. Absent: tenderness, calf tenderness Neurological exam: Present: alert, oriented X3 Psychiatric exam: Present: normal affect, normal mood Skin exam: Present: warm, dry, normal color. Absent: cyanosis, diaphoretic Course Vital Signs 04/15/22 04/15/22 04/15/22 10:33 10:53 11:26 Temperature 99.0 F Pulse Rate 110 H 102 H Respiratory 18 32 H Rate Blood Pressure 114/82 113/72 O2 Sat by Pulse 79 L 96 Oximetry Fraction of 50 Inspired Oxygen (FIO2) 04/15/22 04/15/22 04/15/22 13:13 15:04 15:18 Temperature Pulse Rate 102 H 102 H 101 H Respiratory 18 Rate Blood Pressure 109/80 O2 Sat by Pulse 92 L Oximetry Fraction of Inspired Oxygen (FIO2) - Reevaluation(s) Reevaluation #1: 04/15/22 16:37 Patient's oxygen saturation up to 96% on BiPAP. He appears to be less dyspneic. He remains without complaints of any chest pain. Time: 11:25 Reevaluation #2: 04/15/22 16:37 Patient sitting up in a chair on nasal cannula without complaints. He is admitted to the hospital. Dr. Rao has discontinued the heparin drip. Time: 12:30 EKG Findings - EKG Results: EKG shows: tachycardia (Ventricular rate 110, CA interval 0.184, QRS 0.115, QTC 0.412) Medical Decision Making - Medical Decision Making Patient presents to emergency room with 2 days of increasing generalized weakness. He arrived with oxygen saturation of 79% on room air. He is currently being evaluated for lung cancer with metastasis. He was placed on BiPAP with improvement of his oxygenation to 96%. Today Chest x-ray shows the 4 cm right mid lung mass seen previous. Mild CHF. ProBNP 1620, troponin is positive at 0.076, EKG shows sinus tachycardia with PVCs no significant changes compared to old. CT angio performed on April 11 showing no evidence of PE. There were pulmonary nodules in the right upper and left lower lobes with right pulmonary hilum and mediastinal lymphadenopathy concerning for malignancy. There is a right adrenal nodule measuring 1.8 cm which could be metastatic disease. COPD changes, hepatic steatosis. Atherosclerosis of the coronary arteries. Patient was seen by pulmonology on April 12 and patient refused biopsy and further diagnostic testing at that time. Patient was started on a heparin drip. He was transitioned to nasal cannula without any difficulty. He will be admitted to the hospital to Dr. Rao. Case discussed with Dr. Morgan - Lab Data Result diagrams: 04/15/22 10:52 04/15/22 10:52 Lab Results 04/15/22 04/15/22 04/15/22 Range/Units 10:52 10:52 10:52 WBC 11.7 H (3.8-10.6) k/uL RBC 4.28 L (4.30-5.90) m/uL Hgb 13.4 (13.0-17.5) gm/dL Hct 40.8 (39.0-53.0) % MCV 95.3 (80.0-100.0) fL MCH 31.3 (25.0-35.0) pg MCHC 32.9 (31.0-37.0) g/dL RDW 14.1 (11.5-15.5) % Plt Count 173 (150-450) k/uL MPV 8.6 Neutrophils % 76 % Lymphocytes % 13 % Monocytes % 7 % Eosinophils % 0 % Basophils % 1 % Neutrophils # 8.9 H (1.3-7.7) k/uL Lymphocytes # 1.5 (1.0-4.8) k/uL Monocytes # 0.9 (0-1.0) k/uL Eosinophils # 0.1 (0-0.7) k/uL Basophils # 0.1 (0-0.2) k/uL PT 11.2 (9.0-12.0) sec INR 1.0 (<1.2) APTT 25.8 (22.0-30.0) sec Sample Site ABG pH (7.35-7.45) ABG pCO2 (35-45) mmHg ABG pO2 (83-108) mmHg ABG HCO3 (21-25) mmol/L ABG Total CO2 (19-24) mmol/L ABG O2 Saturation (94-97) % ABG Base Excess mmol/L Jimbo Test FiO2 % Sodium (137-145) mmol/L Potassium (3.5-5.1) mmol/L Chloride (98-107) mmol/L Carbon Dioxide (22-30) mmol/L Anion Gap mmol/L BUN (9-20) mg/dL Creatinine (0.66-1.25) mg/dL Est GFR (CKD-EPI)AfAm (>60 ml/min/1.73 sqM) Est GFR (CKD-EPI)NonAf (>60 ml/min/1.73 sqM) Glucose (74-99) mg/dL Plasma Lactic Acid Matt (0.7-2.0) mmol/L Calcium (8.4-10.2) mg/dL Magnesium (1.6-2.3) mg/dL Total Bilirubin (0.2-1.3) mg/dL AST (17-59) U/L ALT (4-49) U/L Alkaline Phosphatase (38-126) U/L Troponin I (0.000-0.034) ng/mL NT-Pro-B Natriuret Pep pg/mL Total Protein (6.3-8.2) g/dL Albumin (3.5-5.0) g/dL Urine Color Yellow Urine Appearance Clear (Clear) Urine pH 5.0 (5.0-8.0) Ur Specific [place] 1.019 (1.001-1.035) Urine Protein Trace H (Negative) Urine Glucose (UA) Negative (Negative) Urine Ketones Negative (Negative) Urine Blood Negative (Negative) Urine Nitrite Negative (Negative) Urine Bilirubin Negative (Negative) Urine Urobilinogen <2.0 (<2.0) mg/dL Ur Leukocyte Esterase Negative (Negative) 04/15/22 04/15/22 04/15/22 Range/Units 10:52 10:52 10:52 WBC (3.8-10.6) k/uL RBC (4.30-5.90) m/uL Hgb (13.0-17.5) gm/dL Hct (39.0-53.0) % MCV (80.0-100.0) fL MCH (25.0-35.0) pg MCHC (31.0-37.0) g/dL RDW (11.5-15.5) % Plt Count (150-450) k/uL MPV Neutrophils % % Lymphocytes % % Monocytes % % Eosinophils % % Basophils % % Neutrophils # (1.3-7.7) k/uL Lymphocytes # (1.0-4.8) k/uL Monocytes # (0-1.0) k/uL Eosinophils # (0-0.7) k/uL Basophils # (0-0.2) k/uL PT (9.0-12.0) sec INR (<1.2) APTT (22.0-30.0) sec Sample Site ABG pH (7.35-7.45) ABG pCO2 (35-45) mmHg ABG pO2 (83-108) mmHg ABG HCO3 (21-25) mmol/L ABG Total CO2 (19-24) mmol/L ABG O2 Saturation (94-97) % ABG Base Excess mmol/L Jimbo Test FiO2 % Sodium 135 L (137-145) mmol/L Potassium 3.3 L (3.5-5.1) mmol/L Chloride 105 (98-107) mmol/L Carbon Dioxide 21 L (22-30) mmol/L Anion Gap 9 mmol/L BUN 32 H (9-20) mg/dL Creatinine 1.44 H (0.66-1.25) mg/dL Est GFR (CKD-EPI)AfAm 54 (>60 ml/min/1.73 sqM) Est GFR (CKD-EPI)NonAf 47 (>60 ml/min/1.73 sqM) Glucose 162 H (74-99) mg/dL Plasma Lactic Acid Matt 1.4 (0.7-2.0) mmol/L Calcium 8.4 (8.4-10.2) mg/dL Magnesium 2.3 (1.6-2.3) mg/dL Total Bilirubin 1.2 (0.2-1.3) mg/dL AST 82 H (17-59) U/L ALT 72 H (4-49) U/L Alkaline Phosphatase 254 H (38-126) U/L Troponin I 0.076 H* (0.000-0.034) ng/mL NT-Pro-B Natriuret Pep pg/mL Total Protein 5.9 L (6.3-8.2) g/dL Albumin 3.2 L (3.5-5.0) g/dL Urine Color Urine Appearance (Clear) Urine pH (5.0-8.0) Ur Specific [place] (1.001-1.035) Urine Protein (Negative) Urine Glucose (UA) (Negative) Urine Ketones (Negative) Urine Blood (Negative) Urine Nitrite (Negative) Urine Bilirubin (Negative) Urine Urobilinogen (<2.0) mg/dL Ur Leukocyte Esterase (Negative) 04/15/22 04/15/22 Range/Units 10:52 10:55 WBC (3.8-10.6) k/uL RBC (4.30-5.90) m/uL Hgb (13.0-17.5) gm/dL Hct (39.0-53.0) % MCV (80.0-100.0) fL MCH (25.0-35.0) pg MCHC (31.0-37.0) g/dL RDW (11.5-15.5) % Plt Count (150-450) k/uL MPV Neutrophils % % Lymphocytes % % Monocytes % % Eosinophils % % Basophils % % Neutrophils # (1.3-7.7) k/uL Lymphocytes # (1.0-4.8) k/uL Monocytes # (0-1.0) k/uL Eosinophils # (0-0.7) k/uL Basophils # (0-0.2) k/uL PT (9.0-12.0) sec INR (<1.2) APTT (22.0-30.0) sec Sample Site LRAD ABG pH 7.50 H (7.35-7.45) ABG pCO2 30 L (35-45) mmHg ABG pO2 139 H (83-108) mmHg ABG HCO3 24 (21-25) mmol/L ABG Total CO2 25 H (19-24) mmol/L ABG O2 Saturation 99.2 H (94-97) % ABG Base Excess 0.4 mmol/L Jimbo Test Yes FiO2 50 % Sodium (137-145) mmol/L Potassium (3.5-5.1) mmol/L Chloride (98-107) mmol/L Carbon Dioxide (22-30) mmol/L Anion Gap mmol/L BUN (9-20) mg/dL Creatinine (0.66-1.25) mg/dL Est GFR (CKD-EPI)AfAm (>60 ml/min/1.73 sqM) Est GFR (CKD-EPI)NonAf (>60 ml/min/1.73 sqM) Glucose (74-99) mg/dL Plasma Lactic Acid Matt (0.7-2.0) mmol/L Calcium (8.4-10.2) mg/dL Magnesium (1.6-2.3) mg/dL Total Bilirubin (0.2-1.3) mg/dL AST (17-59) U/L ALT (4-49) U/L Alkaline Phosphatase (38-126) U/L Troponin I (0.000-0.034) ng/mL NT-Pro-B Natriuret Pep 1620 pg/mL Total Protein (6.3-8.2) g/dL Albumin (3.5-5.0) g/dL Urine Color Urine Appearance (Clear) Urine pH (5.0-8.0) Ur Specific [place] (1.001-1.035) Urine Protein (Negative) Urine Glucose (UA) (Negative) Urine Ketones (Negative) Urine Blood (Negative) Urine Nitrite (Negative) Urine Bilirubin (Negative) Urine Urobilinogen (<2.0) mg/dL Ur Leukocyte Esterase (Negative) Critical Care Time Critical Care Time: Yes Total Critical Care Time: 35 (Hypoxia BiPAP) Disposition Clinical Impression: Hypoxia, Generalized weakness, Elevated troponin Disposition: ADMITTED IP TO THIS HOSP Decision Date: 04/15/22 Decision Time: 12:30
[2022-04-15 11:07] LABS: ABG Base Excess 0.4 mmol/L; ABG HCO3 24 mmol/L (21-25); ABG Oxygen Saturation 99.2 % (94-97); ABG PCO2 30 mmHg (35-45); ABG PO2 139 mmHg (83-108); ABG TCO2 25 mmol/L (19-24); Allen Test Performed? Yes
[2022-04-15] MEDS ORDERED: NICOTINE 14MG/24HR PATCH TRANSDERM STA (11:13)
[2022-04-15 11:18] LABS: Basophils # (A) 0.1 k/uL (0-0.2); Basophils % (A) 1 %; Eosinophils # (A) 0.1 k/uL (0-0.7); Eosinophils % (A) 0 %; HCT 40.8 % (39.0-53.0); HGB 13.4 gm/dL (13.0-17.5); Lymphocytes # (A) 1.5 k/uL (1.0-4.8); Lymphocytes % (A) 13 %; MCH 31.3 pg (25.0-35.0); MCHC 32.9 g/dL (31.0-37.0); MCV 95.3 fL (80.0-100.0); Mean Platelet Volume 8.6; Monocytes # (A) 0.9 k/uL (0-1.0); Monocytes % (A) 7 %; Neutrophils # (A) 8.9 k/uL (1.3-7.7); Neutrophils % (A) 76 %; Platelet Count 173 k/uL (150-450); RBC 4.28 m/uL (4.30-5.90); RDW 14.1 % (11.5-15.5); WBC 11.7 k/uL (3.8-10.6)
[2022-04-15 11:19] LABS: Appearance,Urine Clear (Clear); Bilirubin,Urine Negative (Negative); Blood,Urine Negative (Negative); Color,Urine Yellow; Glucose,Urine (UA) Negative (Negative); Ketones,Urine Negative (Negative); Leukocyte Esterase,Urine Negative (Negative); Nitrite,Urine Negative (Negative); Protein,Urine Trace (Negative); Specific Gravity,Urine 1.019 (1.001-1.035); Urobilinogen,Urine <2.0 mg/dL (<2.0)
[2022-04-15 11:27] LABS: Partial Thromboplastin Time 25.8 sec (22.0-30.0); Prothrombin Time 11.2 sec (9.0-12.0)
[2022-04-15 11:30] LABS: Albumin 3.2 g/dL (3.5-5.0); Calcium 8.4 mg/dL (8.4-10.2); Magnesium 2.3 mg/dL (1.6-2.3); Potassium 3.3 mmol/L (3.5-5.1); Total Bilirubin 1.2 mg/dL (0.2-1.3); Total Protein 5.9 g/dL (6.3-8.2)
--- NOTE | 2022-04-15 11:55 | XR ---
EXAMINATION TYPE: XR chest 1V portable DATE OF EXAM: 04/15/2022 Comparison: 04/11/2022 Clinical History: 76-year-old male increasing shortness of breath, Weakness Findings: Heart is borderline enlarged. Diffuse interstitial and patchy mid and lower lung opacities. Hyperinfl ation. Known 4 cm right midlung mass. No sizable effusion on the frontal view. Impression: Known 4 cm right midlung mass. Borderline cardiomegaly with COPD, interstitial changes, and patchy mi d and lower lung opacities. Correlate to exclude fluid overload state/mild CHF. Underlying basilar in filtrates would be difficult to exclude.
[2022-04-15] MEDS ORDERED: HEPARIN SODIUM 1,000 UN/ML (10ML VL) IV PRN (12:27)
[2022-04-15] MEDS ORDERED: HEPARIN SODIUM 1,000 UN/ML (10ML VL) IV ONE (12:27)
[2022-04-15] MEDS ORDERED: HEPARIN SOD,PORK IN 0.45% NACL 25,000 UNIT in 0.45% NACL 1 250ML.BAG IV SCH (12:30)
[2022-04-15] MEDS ORDERED: NALOXONE 0.4 MG/ML 1 ML VIAL IV PRN (12:33)
[2022-04-15] MEDS: SODIUM CHLORIDE 0.9% 1,000 ML IV SCH (13:12)
[2022-04-15] MEDS ORDERED: ONDANSETRON 4 MG/2 ML VIAL IVP PRN (13:14)
[2022-04-15] MEDS ORDERED: LACTULOSE 20 GM/30 ML CUP PO PRN (13:14)
[2022-04-15] MEDS ORDERED: CALCIUM CARBONATE 500 MG CHEWABLE PO PRN (13:14)
[2022-04-15] MEDS ORDERED: DEXTROSE 50% SYRINGE 50 ML IVP PRN ×2 (13:17)
[2022-04-15] MEDS: IPRATROPIUM-ALBUTEROL 3 ML NEB INHALATION SCH ×4 (15:03→23:31)
[2022-04-15] MEDS: GABAPENTIN 300 MG CAP PO SCH ×2 (16:41→20:54)
[2022-04-15] MEDS: PANTOPRAZOLE 40 MG TABLET PO SCH (16:41)
[2022-04-15] MEDS: INSULIN ASPART (NovoLOG) 100 UNIT/ML VIAL SQ SCH (18:57)
[2022-04-15 19:07] LABS: Glucose,Whole Blood 147 mg/dL (70-110)
[2022-04-15] MEDS ORDERED: IPRATROPIUM-ALBUTEROL 3 ML NEB INHALATION SCH (20:00)
[2022-04-15] MEDS: BUDESONIDE 0.5 MG/2 ML NEBU INHALATION SCH (20:15)
[2022-04-15] MEDS: METOPROLOL TARTRATE 12.5 MG TAB PO SCH (20:54)
[2022-04-15] MEDS: MONTELUKAST 10 MG TAB PO SCH (20:54)
[2022-04-15] MEDS: POTASSIUM CHLORIDE ER 20 MEQ TAB.ER PO SCH (20:54)
[2022-04-15] MEDS: EZETIMIBE 10 MG TAB PO SCH (20:54)
[2022-04-15] MEDS: cycloSPORINE 0.05% OPHTH 0.4 ML DROPERETTE BOTH EYES SCH (20:54)
[2022-04-15] MEDS: allopurinoL 300 MG TAB PO SCH (20:54)
[2022-04-15] MEDS: prednisoLONE ACETATE 1% OPHTH DROPS 5 ML BTL LEFT EYE SCH (20:55)
[2022-04-15] MEDS ORDERED: NON FORMULARY DRUG (Vitamin B Complex [Vitamin B Complex] 1 EACH Capsule) PO SCH (21:00)
[2022-04-15] MEDS: ACETAMINOPHEN TAB 325 MG TAB PO PRN (21:07)
--- NOTE | 2022-04-15 22:23 | P.HPIM ---
History of Present Illness H&P Date: 04/15/22 Chief Complaint: Weak and tired This is a 76-year-old patient who follows with Dr. Stepan Moyer. Patient was just admitted to the hospital on April 11 was found to be in COPD exacerbation. That time computed tomography scan of the chest did show some pulmonary nodules. Patient has not been eating well. Weak and tired. Legs feeling very weak. PE was ruled out with CT angiogram. Also lymph nodes were found. Emphysema changes. Patient had left the hospital prematurely. Patient had been also diagnosed with diastolic CHF, GERD, CAD with stent, hyperlipidemia, fatty liver, diabetes type 2. Patient was seen by Dr. Ruthann Smith from pulmonary. Patient was supposed to follow with him in the office Patient now returns to the hospital feeling very weak. Poor appetite. Only drinking water. Barely able to walk. Has congested cough. Has been a smoker. No chest pain. Feels rundown. No fever no chills Review of systems: GEN.: Decrease appetite tired EYES: None HEENT: None NECK: None RESPIRATORY: Short of breath cough wheezing CARDIOVASCULAR: None GASTROINTESTINAL: None GENITOURINARY: None MUSCULOSKELETAL: Joint pains LYMPHATICS: None HEMATOLOGICAL: None PSYCHIATRY: Bit anxious NEUROLOGICAL: None Past medical history to include: COPD, pulmonary nodule workup in place, abdominal aortic aneurysm with stent, CHF diastolic, GERD, CAD with stent, obesity with sleep apnea, hyperlipidemia, fatty liver, diabetes type 2 Social history: . Smoked 2 packs a day for most of his life. Now down to half a pack a day.. No alcohol Family history: Reviewed, noncontributory to presentation Physical examination: VITAL SIGNS: 99,, 32, 11 3 x 72, 79% on room air GENERAL: BMI 38.5, sitting up in a chair, short of breath. EYES: Pupils equal. Conjunctiva normal. HEENT: External appearance of nose and ears normal, oral cavity grossly normal. NECK: JVD unable to assess; masses not palpable. HEART: First and second heart sounds are normal; some edema. LUNGS: Respiratory rate increased, accessory muscles of looking, not able to speak in full sentences; diminished breath sounds prolonged expiration and wheezing. ABDOMEN: Soft, nontender, liver spleen not palpable, no masses palpable. PSYCH: Alert and oriented x3; mood and affect anxiousl. MUSCULOSKELETAL:No Clubbing/cyanosis;muscles-grossly intact, evidence of OA NEUROLOGICAL: Cranial nerves grossly intact; no facial asymmetry, power and sensation grossly intact. LYMPHATICS: No lymph nodes palpable in the axilla and neck INVESTIGATIONS, reviewed in the clinical context: White count 11.7 hemoglobin 13.4 platelets 173 ABG: PH 7.5 pCO2 30 pO2 139 sodium 135 potassium 3.3 BUN 32 creatinine 1.44 Troponin I 0.076, 80 AST 82 ALT 72 UA trace protein EKG tracing personally reviewed by me-[email or web address]. Heart rate 110. No specific ST segment changes Chest x-ray film personally reviewed by [email or web address] possible mass some patchy basilar opacities. Previous testing: Creatinine 1.5 on July 2021 Chest CTA: Pulmonary nodules in the right upper lobe and left lower lobe and right pulmonary hilum and mediastinal lymphadenopathy, or indeterminate right internal no deal 1.8 cm. Hepatic steatosis. Hyperinflation. Assessment and plan: -Acute COPD exacerbation in a current smoker DuoNeb every 4. Nebulized Pulmicort -Chronic nicotine dependence, cigarette smoker Nicotine patch -Diabetes mellitus type 2 on oral hypoglycemic Accu-Chek and sliding scale. -Chronic gout Allopurinol 300 mg daily at bedtime -Chronic kidney disease possibly combination of diabetic nephropathy and hype rtensive nephrosclerosis stage III Follow renal function -GERD Protonix 40 mg twice a day -Diabetic peripheral neuropathy Neurontin 300 mg 3 times a day -Obstructive sleep apnea Currently not using CPAP -Prothrombin gene mutation -CAD with stent Plavix Lopressor -Full code Home medications reviewed. DuoNeb. Nebulized Pulmicort. Patient will need biopsy. Oncology will then be consulted. Sliding scale. Discussed the patient. Past Medical History Past Medical History: Blood Disorder, Chest Pain / Angina, COPD, Deep Vein Thrombosis (DVT), GERD/Reflux, Pneumonia, Renal Disease, Sleep Apnea/CPAP/BIPAP Additional Past Medical History / Comment(s): abdominal aortic aneursym. prothrombin gene mutation. has cpap machine. prediabetic,hx diverticulitis, sinus problems with drainage, adrenal insufficiency History of Any Multi-Drug Resistant Organisms: MRSA Date of last positivie culture/infection: 2015 MDRO Source:: back Past Surgical History: Appendectomy, Bowel Resection, Cholecystectomy, Heart Catheterization With Stent, Hernia Repair, Prostate Surgery Additional Past Surgical History / Comment(s): growth removed from side. heart cath x2 with 3-4 stents Past Anesthesia/Blood Transfusion Reactions: Motion Sickness Date of Last Stent Placement:: 2014 Past Psychological History: Anxiety Additional Psychological History / Comment(s): anxiety regarding procedure Smoking Status: Current every day smoker Past Alcohol Use History: None Reported Additional Past Alcohol Use History / Comment(s): 1 / ppd has smoked 40 days Past Drug Use History: None Reported - Past Family History Mother Family Medical History: No Reported History Medications and Allergies Home Medications Medication Instructions Recorded Confirmed Type Albuterol Inhaler [Ventolin Hfa 2 puff INHALATION RT-Q4H PRN 05/13/19 04/15/22 History Inhaler] Cetirizine HCl [Zyrtec] 10 mg PO DAILY 05/13/19 04/15/22 History Clopidogrel Bisulfate [Plavix] 75 mg PO DAILY 05/13/19 04/15/22 History Ezetimibe [Zetia] 10 mg PO HS 05/13/19 04/15/22 History Isosorbide Mononitrate [Isosorbide 30 mg PO DAILY 05/13/19 04/15/22 History Mononitrate ER] Montelukast [Singulair] 10 mg PO HS 05/13/19 04/15/22 History Pantoprazole Sodium [Protonix] 40 mg PO BID 05/13/19 04/15/22 History cycloSPORINE 0.05% OPHTH SOLN 1 drop BOTH EYES BID 05/13/19 04/15/22 History [Restasis] Gabapentin 600 mg PO TID 11/10/21 04/15/22 History Potassium Chloride [K-Tab ER] 20 meq PO BID 11/10/21 04/15/22 History Torsemide [Demadex] 20 mg PO DAILY 11/10/21 04/15/22 History Vitamin B Complex 1 cap PO HS 11/10/21 04/15/22 History calcitrioL [Calcitriol] 0.25 mcg PO MOWEFR 11/10/21 04/15/22 History Acetaminophen-Codeine 300-30mg 1 - 2 tab PO Q6H PRN 04/11/22 04/15/22 History [Tylenol w/codeine #3] Budesonide [Pulmicort] 0.5 mg INHALATION RT-BID 04/11/22 04/15/22 History Chlorhexidine Gluconate [Peridex] 15 ml PO BID 04/11/22 04/15/22 History Fluticasone Nasal [place] [Flonase 2 spr EA NOSTRIL DAILY PRN 04/11/22 04/15/22 History Nasal [place]] Glimepiride [Amaryl] 0.5 mg PO AC-BRKFST 04/11/22 04/15/22 History Ipratropium-Albuterol Nebulize 3 ml INHALATION RT-BID 04/11/22 04/15/22 History [Duoneb 0.5 mg-3 mg/3 ml Soln] Metoprolol Tartrate [Lopressor] 12.5 mg PO BID 04/11/22 04/15/22 History Torsemide [Demadex] 10 mg PO Q48H 04/11/22 04/15/22 History allopurinoL [Allopurinol] 300 mg PO HS 04/11/22 04/15/22 History diazePAM [Valium] 5 mg PO DAILY PRN 04/11/22 04/15/22 History prednisoLONE ACETATE 1% OPHTH 1 drop LEFT EYE BID 04/11/22 04/15/22 History [Pred Forte 1%] traMADol HCL 50 mg PO Q8H PRN 04/11/22 04/15/22 History traZODone HCL [Desyrel] 50 - 100 mg PO HS PRN 04/11/22 04/15/22 History Ergocalciferol [Vitamin D2 (1250 1,250 mcg PO Q14D 04/15/22 04/15/22 History Mcg = 11957 Iu)] Allergies Allergy/AdvReac Type Severity Reaction Status Date / Time cyclobenzaprine Allergy Facial Verified 04/15/22 10:42 [From Flexeril] Swelling Xrsxxmr-ANT-YiV Reductase Allergy Unknown Verified 04/15/22 10:42 Inhibitor [Mshotan-Xsz-Afg Reductase Inhibitor] Physical Exam Vitals: Vital Signs Temp Pulse Resp BP Pulse Ox FiO2 04/15/22 20:33 92 L 04/15/22 20:32 106 H 04/15/22 20:18 92 L 04/15/22 20:17 107 H 04/15/22 18:42 104 H 18 122/70 93 L 04/15/22 16:43 98.8 F 110 H 18 109/64 93 L 04/15/22 15:18 101 H 04/15/22 15:04 102 H 04/15/22 13:13 102 H 18 109/80 92 L 04/15/22 11:26 102 H 32 H 113/72 96 04/15/22 10:53 50 04/15/22 10:33 99.0 F 110 H 18 114/82 79 L Intake and Output 04/15/22 04/15/22 04/15/22 06:59 14:59 22:59 Intake Total 0.667 485 Balance 0.667 485 Intake: Intake, IV Titration 0.667 Amount Heparin Sod,Pork in 0.45% 0.667 NaCl 25,000 unit In 0.45 % NaCl 1 250ml.bag @ 7. 349 UNITS/KG/HR 10 mls/hr IV .Q24H [facility] Rx#: [id number] Oral 485 Other: # Voids 1 Weight 136.078 kg 136.078 kg Results CBC & Chem 7: 04/15/22 10:52 04/15/22 10:52 Labs: Abnormal Lab Results - Last 24 Hours (Table) 04/15/22 04/15/22 04/15/22 Range/Units 10:52 10:52 10:52 WBC 11.7 H (3.8-10.6) k/uL RBC 4.28 L (4.30-5.90) m/uL Neutrophils # 8.9 H (1.3-7.7) k/uL ABG pH (7.35-7.45) ABG pCO2 (35-45) mmHg ABG pO2 (83-108) mmHg ABG Total CO2 (19-24) mmol/L ABG O2 Saturation (94-97) % Sodium 135 L (137-145) mmol/L Potassium 3.3 L (3.5-5.1) mmol/L Carbon Dioxide 21 L (22-30) mmol/L BUN 32 H (9-20) mg/dL Creatinine 1.44 H (0.66-1.25) mg/dL Glucose 162 H (74-99) mg/dL POC Glucose (mg/dL) (70-110) mg/dL AST 82 H (17-59) U/L ALT 72 H (4-49) U/L Alkaline Phosphatase 254 H (38-126) U/L Troponin I (0.000-0.034) ng/mL Total Protein 5.9 L (6.3-8.2) g/dL Albumin 3.2 L (3.5-5.0) g/dL Urine Protein Trace H (Negative) 04/15/22 04/15/22 04/15/22 Range/Units 10:52 10:55 14:28 WBC (3.8-10.6) k/uL RBC (4.30-5.90) m/uL Neutrophils # (1.3-7.7) k/uL ABG pH 7.50 H (7.35-7.45) ABG pCO2 30 L (35-45) mmHg ABG pO2 139 H (83-108) mmHg ABG Total CO2 25 H (19-24) mmol/L ABG O2 Saturation 99.2 H (94-97) % Sodium (137-145) mmol/L Potassium (3.5-5.1) mmol/L Carbon Dioxide (22-30) mmol/L BUN (9-20) mg/dL Creatinine (0.66-1.25) mg/dL Glucose (74-99) mg/dL POC Glucose (mg/dL) (70-110) mg/dL AST (17-59) U/L ALT (4-49) U/L Alkaline Phosphatase (38-126) U/L Troponin I 0.076 H* 0.080 H* (0.000-0.034) ng/mL Total Protein (6.3-8.2) g/dL Albumin (3.5-5.0) g/dL Urine Protein (Negative) 04/15/22 Range/Units 19:06 WBC (3.8-10.6) k/uL RBC (4.30-5.90) m/uL Neutrophils # (1.3-7.7) k/uL ABG pH (7.35-7.45) ABG pCO2 (35-45) mmHg ABG pO2 (83-108) mmHg ABG Total CO2 (19-24) mmol/L ABG O2 Saturation (94-97) % Sodium (137-145) mmol/L Potassium (3.5-5.1) mmol/L Carbon Dioxide (22-30) mmol/L BUN (9-20) mg/dL Creatinine (0.66-1.25) mg/dL Glucose (74-99) mg/dL POC Glucose (mg/dL) 147 H (70-110) mg/dL AST (17-59) U/L ALT (4-49) U/L Alkaline Phosphatase (38-126) U/L Troponin I (0.000-0.034) ng/mL Total Protein (6.3-8.2) g/dL Albumin (3.5-5.0) g/dL Urine Protein (Negative)
[2022-04-16] MEDS: IPRATROPIUM-ALBUTEROL 3 ML NEB INHALATION SCH ×5 (03:20→20:48)
[2022-04-16] MEDS: ACETAMINOPHEN TAB 325 MG TAB PO PRN ×3 (03:32→20:15)
[2022-04-16] MEDS: SODIUM CHLORIDE 0.9% 1,000 ML IV SCH ×2 (04:43→17:42)
[2022-04-16 06:14] LABS: Glucose,Whole Blood 130 mg/dL (70-110)
[2022-04-16] MEDS: INSULIN ASPART (NovoLOG) 100 UNIT/ML VIAL SQ SCH ×4 (06:31→20:15)
[2022-04-16] MEDS: PANTOPRAZOLE 40 MG TABLET PO SCH ×2 (06:31→15:48)
[2022-04-16 07:53] LABS: Basophils % (A) 0 %; Eosinophils # (A) 0.1 k/uL (0-0.7); Eosinophils % (A) 1 %; HCT 39.6 % (39.0-53.0); HGB 12.7 gm/dL (13.0-17.5); Lymphocytes # (A) 1.8 k/uL (1.0-4.8); Lymphocytes % (A) 16 %; MCH 30.9 pg (25.0-35.0); MCV 96.6 fL (80.0-100.0); Mean Platelet Volume 8.9; Monocytes # (A) 0.8 k/uL (0-1.0); Monocytes % (A) 7 %; Neutrophils # (A) 8.2 k/uL (1.3-7.7); Neutrophils % (A) 74 %; Platelet Count 127 k/uL (150-450); RDW 13.8 % (11.5-15.5); WBC 11.1 k/uL (3.8-10.6)
[2022-04-16] MEDS: TORSEMIDE 20 MG TAB PO SCH (08:03)
[2022-04-16] MEDS: METOPROLOL TARTRATE 12.5 MG TAB PO SCH ×2 (08:03→20:03)
[2022-04-16] MEDS: ISOSORBIDE MONONITRATE ER 30 MG TAB.ER.24H PO SCH (08:03)
[2022-04-16] MEDS: GABAPENTIN 300 MG CAP PO SCH ×3 (08:03→20:02)
[2022-04-16] MEDS: cycloSPORINE 0.05% OPHTH 0.4 ML DROPERETTE BOTH EYES SCH ×2 (08:04→21:32)
[2022-04-16] MEDS: prednisoLONE ACETATE 1% OPHTH DROPS 5 ML BTL LEFT EYE SCH ×2 (08:04→20:02)
[2022-04-16] MEDS: POTASSIUM CHLORIDE ER 20 MEQ TAB.ER PO SCH ×4 (08:04→20:02)
[2022-04-16] MEDS: BUDESONIDE 0.5 MG/2 ML NEBU INHALATION SCH ×2 (08:10→20:48)
[2022-04-16 08:11] LABS: Prothrombin Time 11.2 sec (9.0-12.0)
[2022-04-16] MEDS ORDERED: CLOPIDOGREL 75 MG TAB PO SCH (09:00)
--- NOTE | 2022-04-16 09:55 | P.CNPUL ---
History of Present Illness Consult date: 04/15/22 Reason for consult: dyspnea, COPD, hypoxemia, obstructive sleep apnea, other Chief complaint: Progressive generalized weakness History of present illness: Patient is a 76-year-old male with a remote history of smoking, patient has a history of COPD as well as sleep disorder breathing and sleep apnea patient started having some weight loss around 4 weeks ago preliminary workup positive for abnormal chest x-ray eventually underwent computed tomography scan confirmed presence of bilateral pulmonary nodules as well as mediastinal lymphadenopathy one week ago patient developed a lump in the lateral side of the neck since then patient has been progressively weak and short of breath as well he presented to [facility] a few days ago advised to stay in the hospital so that workup including biopsy can be completed but he decided to go home was discharged and biopsies were scheduled on outpatient basis however at home he becomes progressively more week or more short of breath was unable to take care of him because of his size came back into the hospital now being admitted chest x- ray continue show right-sided lung nodule computed tomography scan reviewed again 2 days ago with the presence of bilateral nodules as well as lymphadenopathy in the mediastinal area his recent labs significant for white ce ll count 11,700 hemoglobin and hematocrit of 13.4 and 40 platelet count of 1 73,000, PT PTT within normal limit, arterial blood gas revealed pH of 7.5 pCO2 30 pO2 of 139 on 50% oxygen, chemistry revealed abnormal electrolytes with sodium 135, potassium 3.3, BUN of 32 creatinine of 1.44, LFT mildly elevated AST/ALT of 82/72 along with alk phos of 254, troponin also mildly elevated 0.79, and BNP is 1620, urinalysis unremarkable patient being admitted into the hospital Review of Systems All systems: negative Past Medical History Past Medical History: Blood Disorder, Chest Pain / Angina, COPD, Deep Vein Thrombosis (DVT), GERD/Reflux, Pneumonia, Renal Disease, Sleep Apnea/CPAP/BIPAP Additional Past Medical History / Comment(s): abdominal aortic aneursym. prothrombin gene mutation. has cpap machine. prediabetic,hx diverticulitis, sinus problems with drainage, adrenal insufficiency History of Any Multi-Drug Resistant Organisms: MRSA Date of last positivie culture/infection: 2015 MDRO Source:: back Past Surgical History: Appendectomy, Bowel Resection, Cholecystectomy, Heart Catheterization With Stent, Hernia Repair, Prostate Surgery Additional Past Surgical History / Comment(s): growth removed from side. heart cath x2 with 3-4 stents Past Anesthesia/Blood Transfusion Reactions: Motion Sickness Date of Last Stent Placement:: 2014 Past Psychological History: Anxiety Smoking Status: Current every day smoker Past Alcohol Use History: None Reported Past Drug Use History: None Reported - Past Family History Mother Family Medical History: No Reported History Medications and Allergies Home Medications Medication Instructions Recorded Confirmed Type Albuterol Inhaler [Ventolin Hfa 2 puff INHALATION RT-Q4H PRN 05/13/19 04/15/22 History Inhaler] Cetirizine HCl [Zyrtec] 10 mg PO DAILY 05/13/19 04/15/22 History Clopidogrel Bisulfate [Plavix] 75 mg PO DAILY 05/13/19 04/15/22 History Ezetimibe [Zetia] 10 mg PO HS 05/13/19 04/15/22 History Isosorbide Mononitrate [Isosorbide 30 mg PO DAILY 05/13/19 04/15/22 History Mononitrate ER] Montelukast [Singulair] 10 mg PO HS 05/13/19 04/15/22 History Pantoprazole Sodium [Protonix] 40 mg PO BID 05/13/19 04/15/22 History cycloSPORINE 0.05% OPHTH SOLN 1 drop BOTH EYES BID 05/13/19 04/15/22 History [Restasis] Gabapentin 600 mg PO TID 11/10/21 04/15/22 History Potassium Chloride [K-Tab ER] 20 meq PO BID 11/10/21 04/15/22 History Torsemide [Demadex] 20 mg PO DAILY 11/10/21 04/15/22 History Vitamin B Complex 1 cap PO HS 11/10/21 04/15/22 History calcitrioL [Calcitriol] 0.25 mcg PO MOWEFR 11/10/21 04/15/22 History Acetaminophen-Codeine 300-30mg 1 - 2 tab PO Q6H PRN 04/11/22 04/15/22 History [Tylenol w/codeine #3] Budesonide [Pulmicort] 0.5 mg INHALATION RT-BID 04/11/22 04/15/22 History Chlorhexidine Gluconate [Peridex] 15 ml PO BID 04/11/22 04/15/22 History Fluticasone Nasal [place] [Flonase 2 spr EA NOSTRIL DAILY PRN 04/11/22 04/15/22 History Nasal [place]] Glimepiride [Amaryl] 0.5 mg PO AC-BRKFST 04/11/22 04/15/22 History Ipratropium-Albuterol Nebulize 3 ml INHALATION RT-BID 04/11/22 04/15/22 History [Duoneb 0.5 mg-3 mg/3 ml Soln] Metoprolol Tartrate [Lopressor] 12.5 mg PO BID 04/11/22 04/15/22 History Torsemide [Demadex] 10 mg PO Q48H 04/11/22 04/15/22 History allopurinoL [Allopurinol] 300 mg PO HS 04/11/22 04/15/22 History diazePAM [Valium] 5 mg PO DAILY PRN 04/11/22 04/15/22 History prednisoLONE ACETATE 1% OPHTH 1 drop LEFT EYE BID 04/11/22 04/15/22 History [Pred Forte 1%] traMADol HCL 50 mg PO Q8H PRN 04/11/22 04/15/22 History traZODone HCL [Desyrel] 50 - 100 mg PO HS PRN 04/11/22 04/15/22 History Ergocalciferol [Vitamin D2 (1250 1,250 mcg PO Q14D 04/15/22 04/15/22 History Mcg = 80010 Iu)] Allergies Allergy/AdvReac Type Severity Reaction Status Date / Time cyclobenzaprine Allergy Facial Verified 04/15/22 10:42 [From Flexeril] Swelling Hsnxixp-RDG-JeR Reductase Allergy Unknown Verified 04/15/22 10:42 Inhibitor [Dlwfrhp-Kpl-Sec Reductase Inhibitor] Physical Exam Vitals: Vital Signs Temp Pulse Resp BP Pulse Ox FiO2 04/15/22 13:13 102 H 18 109/80 92 L 04/15/22 11:26 102 H 32 H 113/72 96 04/15/22 10:53 50 04/15/22 10:33 99.0 F 110 H 18 114/82 79 L Intake and Output 04/15/22 04/15/22 04/15/22 06:59 14:59 22:59 Intake Total 0.667 Balance 0.667 Intake: Intake, IV Titration 0.667 Amount Heparin Sod,Pork in 0.45% 0.667 NaCl 25,000 unit In 0.45 % NaCl 1 250ml.bag @ 7. 349 UNITS/KG/HR 10 mls/hr IV .Q24H [facility] Rx#: [id number] Other: Weight 136.078 kg - Constitutional General appearance: disheveled, morbidly obese - EENT Eyes: EOMI, PERRLA Ears: bilateral: normal - Neck Form mass/nodule-like in mid right neck Neck: lymphadenopathy Carotids: bilateral: upstroke normal Thyroid: bilateral: normal size - Respiratory Respiratory: bilateral: diminished - Cardiovascular Rhythm: regular Heart sounds: normal: S1, S2 - Gastrointestinal General gastrointestinal: normal bowel sounds, soft - Integumentary Integumentary: normal turgor - Neurologic Neurologic: CNII-XII intact - Musculoskeletal Musculoskeletal: gait normal, generalized weakness, strength equal bilaterally - Psychiatric Psychiatric: A&O x's 3, appropriate affect, intact judgment & insight Results - Laboratory Findings CBC and BMP: 04/15/22 10:52 04/15/22 10:52 ABG ABG pH 7.50 (7.35-7.45) H 04/15/22 10:55 ABG pCO2 30 mmHg (35-45) L 04/15/22 10:55 ABG pO2 139 mmHg (83-108) H 04/15/22 10:55 ABG O2 Saturation 99.2 % (94-97) H 04/15/22 10:55 PT/INR, D-dimer PT 11.2 sec (9.0-12.0) 04/15/22 10:52 INR 1.0 (<1.2) 04/15/22 10:52 Abnormal lab findings: Abnormal Labs 04/15/22 04/15/22 04/15/22 10:52 10:52 10:52 WBC 11.7 H RBC 4.28 L Neutrophils # 8.9 H ABG pH ABG pCO2 ABG pO2 ABG Total CO2 ABG O2 Saturation Sodium 135 L Potassium 3.3 L Carbon Dioxide 21 L BUN 32 H Creatinine 1.44 H Glucose 162 H AST 82 H ALT 72 H Alkaline Phosphatase 254 H Troponin I Total Protein 5.9 L Albumin 3.2 L Urine Protein Trace H 04/15/22 04/15/22 10:52 10:55 WBC RBC Neutrophils # ABG pH 7.50 H ABG pCO2 30 L ABG pO2 139 H ABG Total CO2 25 H ABG O2 Saturation 99.2 H Sodium Potassium Carbon Dioxide BUN Creatinine Glucose AST ALT Alkaline Phosphatase Troponin I 0.076 H* Total Protein Albumin Urine Protein - Diagnostic Findings Chest x-ray: report reviewed, image reviewed CT scan - chest: report reviewed, image reviewed Assessment and Plan Assessment: Bilateral pulmonary nodules along with mediastinal mass Right neck lymphadenopathy Progressive weakness with inability to get up and walk around Electrolyte imbalance with hyponatremia and hypokalemia Elevated troponin likely related to demand ischemia Leukocytosis and possibility of postobstructive pneumonia cannot be excluded Mildly elevated liver enzymes Severe morbid obesity Sleep disorder breathing and sleep apnea COPD History of gout Dyslipidemia Hypertension hypertensive cardiovascular disease History of DVT along with prothrombin gene mutation History of abdominal aortic aneurysm Plan: Gentle rehydration Replace electrolytes Broad-spectrum antibiotics with Rocephin and Flagyl Consult neurology for severe progressive weakness and evaluation for paraneoplastic syndrome Consult oncology for neoplasm/lung masses/lymphadenopathy Consult interventional radiology for biopsy of neck mass versus lung mass Further plan of care as per clinical response of the patient
--- NOTE | 2022-04-16 09:59 | P.PN ---
Subjective Progress Note Date: 04/16/22 Principal diagnosis: Bilateral pulmonary nodules along with mediastinal mass Right neck lymphadenopathy Progressive weakness with inability to get up and walk around Electrolyte imbalance with hyponatremia and hypokalemia Elevated troponin likely related to demand ischemia Leukocytosis and possibility of postobstructive pneumonia cannot be excluded Mildly elevated liver enzymes Severe morbid obesity Sleep disorder breathing and sleep apnea COPD History of gout Dyslipidemia Hypertension hypertensive cardiovascular disease History of DVT along with prothrombin gene mutation History of abdominal aortic aneurysm 04/16/2022, patient seen eval examined during the rounds using CPAP machine from home breathing comfortably patient has been otherwise 6 L oxygen, intermittent cough is present, patient has received antibiotics in the emergency department we'll continue it will put patient on Rocephin and Flagyl, also put patient on IV steroids consult has been initiated with IR to do a left torn biopsy or lung biopsy, with oncology as well as neurology for evaluation of severe generalized weakness of sudden onset labs pending patient has been initiated on came back from [place] replacement protocol. Continue to hold Plavix for now for anticipated biopsy early next week Patient is a 76-year-old male with a remote history of smoking, patient has a history of COPD as well as sleep disorder breathing and sleep apnea patient started having some weight loss around 4 weeks ago preliminary workup positive for abnormal chest x-ray eventually underwent computed tomography scan confirmed presence of bilateral pulmonary nodules as well as mediastinal lymphadenopathy one week ago patient developed a lump in the lateral side of the neck since then patient has been progressively weak and short of breath as well he presented to [facility] a few days ago advised to stay in the hospital so that workup including biopsy can be completed but he decided to go home was discharged and biopsies were scheduled on outpatient basis however at home he becomes prog ressively more week or more short of breath was unable to take care of him because of his size came back into the hospital now being admitted chest x-ray continue show right-sided lung nodule computed tomography scan reviewed again 2 days ago with the presence of bilateral nodules as well as lymphadenopathy in the mediastinal area his recent labs significant for white cell count 11,700 hemoglobin and hematocrit of 13.4 and 40 platelet count of 1 73,000, PT PTT within normal limit, arterial blood gas revealed pH of 7.5 pCO2 30 pO2 of 139 on 50% oxygen, chemistry revealed abnormal electrolytes with sodium 135, potassium 3.3, BUN of 32 creatinine of 1.44, LFT mildly elevated AST/ALT of 82/72 along with alk phos of 254, troponin also mildly elevated 0.79, and BNP is 1620, urinalysis unremarkable patient being admitted into the hospital Objective - Vital Signs Vital signs: Vital Signs Temp 98 F 04/16/22 08:00 Pulse 95 04/16/22 08:00 Resp 20 04/16/22 08:00 BP 121/75 04/16/22 08:00 Pulse Ox 94 L 04/16/22 04:00 FiO2 50 04/15/22 10:53 Intake & Output 04/15/22 04/16/22 04/16/22 18:59 06:59 18:59 Intake Total 0.667 970 180 Output Total 600 Balance 0.667 370 180 Weight 136.078 kg 136.078 kg Intake: Intake, IV Titration 0.667 Amount Heparin Sod,Pork in 0.45% 0.667 NaCl 25,000 unit In 0.45 % NaCl 1 250ml.bag @ 7. 349 UNITS/KG/HR 10 mls/hr IV .Q24H [facility] Rx#: [id number] Oral 970 180 Output: Urine 600 Other: Voiding Method Urinal # Voids 1 - Exam - Constitutional General appearance: disheveled, morbidly obese - EENT Eyes: EOMI, PERRLA Ears: bilateral: normal - Neck Form mass/nodule-like in mid right neck Neck: lymphadenopathy Carotids: bilateral: upstroke normal Thyroid: bilateral: normal size - Respiratory Respiratory: bilateral: diminished - Cardiovascular Rhythm: regular Heart sounds: normal: S1, S2 - Gastrointestinal General gastrointestinal: normal bowel sounds, soft - Integumentary Integumentary: normal turgor - Neurologic Neurologic: CNII-XII intact - Musculoskeletal Musculoskeletal: gait normal, generalized weakness, strength equal bilaterally - Psychiatric Psychiatric: A&O x's 3, appropriate affect, intact judgment & insight - Labs CBC & Chem 7: 04/16/22 07:01 04/15/22 10:52 Labs: Abnormal Lab Results - Last 24 Hours (Table) 04/15/22 04/15/22 04/15/22 Range/Units 10:52 10:52 10:52 WBC 11.7 H (3.8-10.6) k/uL RBC 4.28 L (4.30-5.90) m/uL Hgb (13.0-17.5) gm/dL Plt Count (150-450) k/uL Neutrophils # 8.9 H (1.3-7.7) k/uL ABG pH (7.35-7.45) ABG pCO2 (35-45) mmHg ABG pO2 (83-108) mmHg ABG Total CO2 (19-24) mmol/L ABG O2 Saturation (94-97) % Sodium 135 L (137-145) mmol/L Potassium 3.3 L (3.5-5.1) mmol/L Carbon Dioxide 21 L (22-30) mmol/L BUN 32 H (9-20) mg/dL Creatinine 1.44 H (0.66-1.25) mg/dL Glucose 162 H (74-99) mg/dL POC Glucose (mg/dL) (70-110) mg/dL Hemoglobin A1c (0.0-6.0) % AST 82 H (17-59) U/L ALT 72 H (4-49) U/L Alkaline Phosphatase 254 H (38-126) U/L Troponin I (0.000-0.034) ng/mL Total Protein 5.9 L (6.3-8.2) g/dL Albumin 3.2 L (3.5-5.0) g/dL Urine Protein Trace H (Negative) 04/15/22 04/15/22 04/15/22 Range/Units 10:52 10:55 14:28 WBC (3.8-10.6) k/uL RBC (4.30-5.90) m/uL Hgb (13.0-17.5) gm/dL Plt Count (150-450) k/uL Neutrophils # (1.3-7.7) k/uL ABG pH 7.50 H (7.35-7.45) ABG pCO2 30 L (35-45) mmHg ABG pO2 139 H (83-108) mmHg ABG Total CO2 25 H (19-24) mmol/L ABG O2 Saturation 99.2 H (94-97) % Sodium (137-145) mmol/L Potassium (3.5-5.1) mmol/L Carbon Dioxide (22-30) mmol/L BUN (9-20) mg/dL Creatinine (0.66-1.25) mg/dL Glucose (74-99) mg/dL POC Glucose (mg/dL) (70-110) mg/dL Hemoglobin A1c (0.0-6.0) % AST (17-59) U/L ALT (4-49) U/L Alkaline Phosphatase (38-126) U/L Troponin I 0.076 H* 0.080 H* (0.000-0.034) ng/mL Total Protein (6.3-8.2) g/dL Albumin (3.5-5.0) g/dL Urine Protein (Negative) 04/15/22 04/15/22 04/16/22 Range/Units 14:28 19:06 06:10 WBC (3.8-10.6) k/uL RBC (4.30-5.90) m/uL Hgb (13.0-17.5) gm/dL Plt Count (150-450) k/uL Neutrophils # (1.3-7.7) k/uL ABG pH (7.35-7.45) ABG pCO2 (35-45) mmHg ABG pO2 (83-108) mmHg ABG Total CO2 (19-24) mmol/L ABG O2 Saturation (94-97) % Sodium (137-145) mmol/L Potassium (3.5-5.1) mmol/L Carbon Dioxide (22-30) mmol/L BUN (9-20) mg/dL Creatinine (0.66-1.25) mg/dL Glucose (74-99) mg/dL POC Glucose (mg/dL) 147 H 130 H (70-110) mg/dL Hemoglobin A1c 7.1 H (0.0-6.0) % AST (17-59) U/L ALT (4-49) U/L Alkaline Phosphatase (38-126) U/L Troponin I (0.000-0.034) ng/mL Total Protein (6.3-8.2) g/dL Albumin (3.5-5.0) g/dL Urine Protein (Negative) 04/16/22 Range/Units 07:01 WBC 11.1 H (3.8-10.6) k/uL RBC 4.10 L (4.30-5.90) m/uL Hgb 12.7 L (13.0-17.5) gm/dL Plt Count 127 L (150-450) k/uL Neutrophils # 8.2 H (1.3-7.7) k/uL ABG pH (7.35-7.45) ABG pCO2 (35-45) mmHg ABG pO2 (83-108) mmHg ABG Total CO2 (19-24) mmol/L ABG O2 Saturation (94-97) % Sodium (137-145) mmol/L Potassium (3.5-5.1) mmol/L Carbon Dioxide (22-30) mmol/L BUN (9-20) mg/dL Creatinine (0.66-1.25) mg/dL Glucose (74-99) mg/dL POC Glucose (mg/dL) (70-110) mg/dL Hemoglobin A1c (0.0-6.0) % AST (17-59) U/L ALT (4-49) U/L Alkaline Phosphatase (38-126) U/L Troponin I (0.000-0.034) ng/mL Total Protein (6.3-8.2) g/dL Albumin (3.5-5.0) g/dL Urine Protein (Negative) Assessment and Plan Assessment: Bilateral pulmonary nodules along with mediastinal mass Right neck lymphadenopathy Progressive weakness with inability to get up and walk around Electrolyte imbalance with hyponatremia and hypokalemia Elevated troponin likely related to demand ischemia Leukocytosis and possibility of postobstructive pneumonia cannot be excluded Mildly elevated liver enzymes Severe morbid obesity Sleep disorder breathing and sleep apnea COPD History of gout Dyslipidemia Hypertension hypertensive cardiovascular disease History of DVT along with prothrombin gene mutation History of abdominal aortic aneurysm Plan: Gentle rehydration Replace electrolytes Broad-spectrum antibiotics with Rocephin and Flagyl IV steroids Protection magnesium and phosphorus replacement protocol Consult neurology for severe progressive weakness and evaluation for paraneoplastic syndrome Consult oncology for neoplasm/lung masses/lymphadenopathy Consult interventional radiology for biopsy of neck mass versus lung mass Further plan of care as per clinical response of the patient Time with Patient: Greater than 30
[2022-04-16 10:09] LABS: Albumin 2.9 g/dL (3.5-5.0); Calcium 8.3 mg/dL (8.4-10.2); Magnesium 2.4 mg/dL (1.6-2.3); Phosphorus 4.5 mg/dL (2.5-4.5); Potassium 3.5 mmol/L (3.5-5.1); Total Bilirubin 1.3 mg/dL (0.2-1.3); Total Protein 5.5 g/dL (6.3-8.2)
[2022-04-16] MEDS ORDERED: Potassium Replacement Protocol 1 EACH MISC MISCELLANE PRN (10:18)
[2022-04-16] MEDS: metroNIDAZOLE 500 MG TAB PO SCH ×3 (11:12→23:43)
[2022-04-16 11:35] LABS: Glucose,Whole Blood 150 mg/dL (70-110)
--- NOTE | 2022-04-16 12:47 | P.CRDCN ---
History of Present Illness History of present illness: HISTORY OF PRESENTING ILLNESS Patient is a pleasant 76-year-old male with a history of prior tobacco abuse, COPD, obstructive sleep apnea, CAD status post PCI approximately 2013 per patient, PAD status post peripheral stenting, arthritis, CKD. He presented approximately a week ago and had undergone workup for lymphadenopathy however have left AMA. He then presented with continued weakness. He states weakness has been ongoing and progressive over a year where he has intermittently been using wheelchair however more significant in the last few months and especially the last few weeks. He has been mainly describing left lower extremity weakness as well as left upper extremity shoulder weakness. The lower extremity appears more significant at times he will feel his legs giving out from under him. He denies any actual lightheadedness or dizziness or syncope. He denies any chest pain or pressure. He admits he is very concerned regarding losing his mobility. If he does too much he will get short of breath however usually will get weak before he is able to do that much activity. EKG shows normal sinus rhythm, first-degree AV block, Q waves inferiorly with nonspecific minimal 0.5 mm J point elevation in the inferior and lateral leads as well as PVCs. Blood work shows white blood cell count 11.1, hemoglobin 12.7, sodium 136, 1.4 down to 1.3 with a baseline 1.3-1.4. AST 82, ALT 72, alk phos 254, troponin 0.07, 0.08, proBNP 1620. REVIEW OF SYSTEMS At the time of my exam: CONSTITUTIONAL: Denies fever or chills. CARDIOVASCULAR: Denies chest pain, +shortness of breath, no orthopnea, PND or palpitations. RESPIRATORY: Denies cough. GASTROINTESTINAL: Denies abdominal pain, diarrhea, constipation, nausea or vomiting. MUSCULOSKELETAL: Denies myalgias. NEUROLOGIC: Denies numbness, tingling, +LLE and LUE weakness. ENDOCRINE: Denies fatigue, weight change, polydipsia or polyurina. GENITOURINARY: Denies burning, hematuria or urgency with micturation. HEMATOLOGIC: Denies history of anemia or bleeding. PHYSICAL EXAMINATION Vital signs reviewed. CONSTITUTIONAL: No apparent distress, obese, chronically ill appearing HEENT: Head is normocephalic. Pupils are equal, round. Sclerae anicteric. Mucous membranes of the mouth are moist. No JVD. No carotid bruit. CHEST EXAMINATION: Lungs are clear to auscultation. No chest wall tenderness is noted on palpation or with deep breathing. HEART EXAMINATION: Regular rate and rhythm. S1, S2 heard. No murmurs, gallops or rub. ABDOMEN: Soft, nontender. Positive bowel sounds. EXTREMITIES: 2+ peripheral pulses, no lower extremity edema and no calf tenderness. NEUROLOGIC EXAMINATION: Patient is awake, alert and oriented x3. ASSESSMENT 1. Elevated troponins, suspect chronically elevated secondary to chronic kidney disease. No significant angina-type symptoms 2. Falls and debility appears mainly related to left lower extremity weakness. No significant lightheadedness or syncope 3. Hypertension 4. PAD with prior history of endovascular treatment 5. CAD with prior PCI 6. Acute on chronic kidney disease 7. Mediastinal lymphadenopathy concerning for malignancy 8. Left upper and left lower extremity weakness 9. Remote tobacco abuse 10. Elevated liver enzymes 11. Leukocytosis PLAN Patient's main complaint appears related to decreased mobility and increased left lower extremity weakness which has been somewhat progressive however worse over the last few weeks. Additionally has been undergoing workup for lymphadenopathy rule out lung cancer. Does not appear to have any significant syncope or near syncope. We will check 2-D echo to evaluate left ventricular function. Does not appear to have any acute coronary syndrome. Continue with supportive care. Further recommendations to follow. Past Medical History Past Medical History: Blood Disorder, Chest Pain / Angina, COPD, Deep Vein Thrombosis (DVT), GERD/Reflux, Pneumonia, Renal Disease, Sleep Apnea/CPAP/BIPAP Additional Past Medical History / Comment(s): abdominal aortic aneursym. prothrombin gene mutation. has cpap machine. prediabetic,hx diverticulitis, sinus problems with drainage, adrenal insufficiency History of Any Multi-Drug Resistant Organisms: MRSA Date of last positivie culture/infection: 2015 MDRO Source:: back Past Surgical History: Appendectomy, Bowel Resection, Cholecystectomy, Heart Catheterization With Stent, Hernia Repair, Prostate Surgery Additional Past Surgical History / Comment(s): growth removed from side. heart cath x2 with 3-4 stents Past Anesthesia/Blood Transfusion Reactions: Motion Sickness Date of Last Stent Placement:: 2014 Past Psychological History: Anxiety Smoking Status: Current every day smoker Past Alcohol Use History: None Reported Past Drug Use History: None Reported - Past Family History Mother Family Medical History: No Reported History Medications and Allergies Home Medications Medication Instructions Recorded Confirmed Type Albuterol Inhaler [Ventolin Hfa 2 puff INHALATION RT-Q4H PRN 05/13/19 04/15/22 History Inhaler] Cetirizine HCl [Zyrtec] 10 mg PO DAILY 05/13/19 04/15/22 History Clopidogrel Bisulfate [Plavix] 75 mg PO DAILY 05/13/19 04/15/22 History Ezetimibe [Zetia] 10 mg PO HS 05/13/19 04/15/22 History Isosorbide Mononitrate [Isosorbide 30 mg PO DAILY 05/13/19 04/15/22 History Mononitrate ER] Montelukast [Singulair] 10 mg PO HS 05/13/19 04/15/22 History Pantoprazole Sodium [Protonix] 40 mg PO BID 05/13/19 04/15/22 History cycloSPORINE 0.05% OPHTH SOLN 1 drop BOTH EYES BID 05/13/19 04/15/22 History [Restasis] Gabapentin 600 mg PO TID 11/10/21 04/15/22 History Potassium Chloride [K-Tab ER] 20 meq PO BID 11/10/21 04/15/22 History Torsemide [Demadex] 20 mg PO DAILY 11/10/21 04/15/22 History Vitamin B Complex 1 cap PO HS 11/10/21 04/15/22 History calcitrioL [Calcitriol] 0.25 mcg PO MOWEFR 11/10/21 04/15/22 History Acetaminophen-Codeine 300-30mg 1 - 2 tab PO Q6H PRN 04/11/22 04/15/22 History [Tylenol w/codeine #3] Budesonide [Pulmicort] 0.5 mg INHALATION RT-BID 04/11/22 04/15/22 History Chlorhexidine Gluconate [Peridex] 15 ml PO BID 04/11/22 04/15/22 History Fluticasone Nasal [place] [Flonase 2 spr EA NOSTRIL DAILY PRN 04/11/22 04/15/22 History Nasal [place]] Glimepiride [Amaryl] 0.5 mg PO AC-BRKFST 04/11/22 04/15/22 History Ipratropium-Albuterol Nebulize 3 ml INHALATION RT-BID 04/11/22 04/15/22 History [Duoneb 0.5 mg-3 mg/3 ml Soln] Metoprolol Tartrate [Lopressor] 12.5 mg PO BID 04/11/22 04/15/22 History Torsemide [Demadex] 10 mg PO Q48H 04/11/22 04/15/22 History allopurinoL [Allopurinol] 300 mg PO HS 04/11/22 04/15/22 History diazePAM [Valium] 5 mg PO DAILY PRN 04/11/22 04/15/22 History prednisoLONE ACETATE 1% OPHTH 1 drop LEFT EYE BID 04/11/22 04/15/22 History [Pred Forte 1%] traMADol HCL 50 mg PO Q8H PRN 04/11/22 04/15/22 History traZODone HCL [Desyrel] 50 - 100 mg PO HS PRN 04/11/22 04/15/22 History Ergocalciferol [Vitamin D2 (1250 1,250 mcg PO Q14D 04/15/22 04/15/22 History Mcg = [id number] Iu)] Allergies Allergy/AdvReac Type Severity Reaction Status Date / Time cyclobenzaprine Allergy Facial Verified 04/15/22 10:42 [From Flexeril] Swelling Mhdyfwd-UNZ-SaE Reductase Allergy Unknown Verified 04/15/22 10:42 Inhibitor [Pofhcas-Vmh-Oih Reductase Inhibitor] Physical Exam Vitals: Vital Signs Temp Pulse Pulse Resp BP BP Pulse Ox 04/16/22 11:25 97.6 F 105 H 20 109/73 95 04/16/22 11:06 82 04/16/22 10:54 80 04/16/22 08:00 98 F 95 20 121/75 04/16/22 04:00 96 18 127/72 94 L 04/16/22 03:30 78 04/16/22 03:20 92 94 L 04/16/22 00:00 90 18 132/68 95 04/15/22 20:33 92 L 04/15/22 20:32 106 H 04/15/22 20:18 92 L 04/15/22 20:17 107 H 04/15/22 20:00 97.8 F 105 H 16 139/66 92 L 04/15/22 18:42 104 H 18 122/70 93 L 04/15/22 16:43 98.8 F 110 H 18 109/64 93 L 04/15/22 15:18 101 H 04/15/22 15:04 102 H 04/15/22 13:13 102 H 18 109/80 92 L Intake and Output 04/15/22 04/16/22 04/16/22 22:59 06:59 14:59 Intake Total 485 485 180 Output Total 600 650 Balance 844 -134 -004 Intake: Oral 485 485 180 Output: Urine 600 650 Other: Voiding Method Urinal Urinal # Voids 1 Weight 136.078 kg Results 04/16/22 07:01 04/16/22 07:01 Cardiac Enzymes 04/15/22 04/16/22 Range/Units 14:28 07:01 AST 86 H (17-59) U/L Troponin I 0.080 H* (0.000-0.034) ng/mL Coagulation 04/15/22 04/16/22 Range/Units 18:06 07:01 PT 11.2 (9.0-12.0) sec APTT 24.8 (22.0-30.0) sec CBC 04/16/22 Range/Units 07:01 WBC 11.1 H (3.8-10.6) k/uL RBC 4.10 L (4.30-5.90) m/uL Hgb 12.7 L (13.0-17.5) gm/dL Hct 39.6 (39.0-53.0) % Plt Count 127 L (150-450) k/uL Comprehensive Metabolic Panel 04/16/22 Range/Units 07:01 Sodium 136 L (137-145) mmol/L Potassium 3.5 (3.5-5.1) mmol/L Chloride 104 (98-107) mmol/L Carbon Dioxide 25 (22-30) mmol/L BUN 28 H (9-20) mg/dL Creatinine 1.35 H (0.66-1.25) mg/dL Glucose 111 H (74-99) mg/dL Calcium 8.3 L (8.4-10.2) mg/dL AST 86 H (17-59) U/L ALT 76 H (4-49) U/L Alkaline Phosphatase 258 H (38-126) U/L Total Protein 5.5 L (6.3-8.2) g/dL Albumin 2.9 L (3.5-5.0) g/dL Current Medications Generic Name Dose Route Start Last Admin Trade Name Freq PRN Reason Stop Dose Admin Acetaminophen 650 mg 04/15/22 12:33 04/16/22 11:13 Acetaminophen Tab 325 Mg Tab PO 650 mg Q6HR PRN Administration Mild Pain or Fever > 100.5 Albuterol/Ipratropium 3 ml 04/15/22 13:21 04/16/22 10:54 Ipratropium-Albuterol 3 Ml Neb INHALATION 3 ml RT-Q4H MARIBELL Administration Allopurinol 300 mg 04/15/22 21:00 04/15/22 20:54 Allopurinol 300 Mg Tab PO 300 mg HS MARIBELL Administration Budesonide 0.5 mg 04/15/22 20:00 04/16/22 08:10 Budesonide 0.5 Mg/2 Ml Nebu INHALATION Not Given RT-BID MARIBELL Calcitriol 0.25 mcg 04/15/22 14:00 04/15/22 16:41 Calcitriol 0.25 Mcg Cap PO 0.25 mcg MOWEFR MARIBELL Administration Calcium Carbonate/Glycine 1,000 mg 04/15/22 13:14 Calcium Carbonate 500 Mg Chewable PO Q4HR PRN Dyspepsia Cyclosporine 1 drops 04/15/22 21:00 04/16/22 08:04 Cyclosporine 0.05% Ophth 0.4 Ml Droperette BOTH EYES 1 drops BID MARIBELL Administration Dextrose/Water 25 ml 04/15/22 13:17 Dextrose 50% Syringe 50 Ml IVP PER PROTOCOL PRN Hypoglycemia Protocol Dextrose/Water 50 ml 04/15/22 13:17 Dextrose 50% Syringe 50 Ml IVP PER PROTOCOL PRN Hypoglycemia Protocol Ezetimibe 10 mg 04/15/22 21:00 04/15/22 20:54 Ezetimibe 10 Mg Tab PO 10 mg HS MARIBELL Administration Gabapentin 300 mg 04/16/22 09:00 04/16/22 08:03 Gabapentin 300 Mg Cap PO 300 mg TID MARIBELL Administration Sodium Chloride 1,000 mls @ 75 mls/hr 04/15/22 12:45 04/16/22 04:43 Saline 0.9% IV Not Given .[id number] MARIBELL Ceftriaxone Sodium 1 gm/ 50 mls @ 100 mls/hr 04/16/22 21:00 Sodium Chloride IVPB HS MARIBELL Protocol Insulin Aspart 0 unit 04/16/22 12:30 04/16/22 11:53 Insulin Aspart (Novolog) 100 Unit/Ml Vial SQ Not Given ACHS [facility] Protocol Isosorbide Mononitrate 30 mg 04/16/22 09:00 04/16/22 08:03 Isosorbide Mononitrate Er 30 Mg Tab.Er.24h PO 30 mg DAILY MARIBELL Administration Lactulose 20 gm 04/15/22 13:14 Lactulose 20 Gm/30 Ml Cup PO DAILY PRN Constipation Lorazepam 0.5 mg 04/15/22 13:14 Lorazepam 0.5 Mg Tab PO Q6HR PRN Anxiety Methylprednisolone Sodium Succinate 40 mg 04/16/22 16:00 Methylprednisolone Sod Succi 40 Mg/Ml 1 Ml Vial IV Q8HR MARIBELL Metoprolol Tartrate 12.5 mg 04/15/22 21:00 04/16/22 08:03 Metoprolol Tartrate 12.5 Mg Tab PO 12.5 mg BID MARIBELL Administration Metronidazole 500 mg 04/16/22 10:00 04/16/22 11:12 Metronidazole 500 Mg Tab PO 500 mg TID MARIBELL Administration Protocol Miscellaneous Information 1 each 04/16/22 10:18 Potassium Replacement Protocol 1 Each Misc MISCELLANE DAILY PRN Per Protocol Protocol Montelukast Sodium 10 mg 04/15/22 21:00 04/15/22 20:54 Montelukast 10 Mg Tab PO 10 mg HS MARIBELL Administration Naloxone HCl 0.2 mg 04/15/22 12:33 Naloxone 0.4 Mg/Ml 1 Ml Vial IV Q2M PRN Opioid Reversal Nicotine 1 patch 04/17/22 09:00 Nicotine 14mg/24hr Patch TRANSDERM DAILY [facility] Ondansetron HCl 4 mg 04/15/22 13:14 Ondansetron 4 Mg/2 Ml Vial IVP Q8HR PRN Nausea And Vomiting Pantoprazole Sodium 40 mg 04/15/22 17:30 04/16/22 06:31 Pantoprazole 40 Mg Tablet PO 40 mg BID@0730,1730 [facility] Administration Potassium Chloride 20 meq 04/15/22 21:00 04/16/22 08:04 Potassium Chloride Er 20 Meq Tab.Er PO 20 meq BID MARIBELL Administration Prednisolone Acetate 1 drops 04/15/22 21:00 04/16/22 08:04 Prednisolone Acetate 1% Ophth Drops 5 Ml Btl LEFT EYE 1 drops BID MARIBELL Administration Torsemide 20 mg 04/16/22 09:00 04/16/22 08:03 Torsemide 20 Mg Tab PO 20 mg DAILY MARIBELL Administration Tramadol HCl 50 mg 04/15/22 13:12 Tramadol 50 Mg Tab PO Q8H PRN Pain Intake and Output 04/15/22 04/16/22 04/16/22 22:59 06:59 14:59 Intake Total 485 485 180 Output Total 600 650 Balance 632 -880 -863 Intake: Oral 485 485 180 Output: Urine 600 650 Other: Voiding Method Urinal Urinal # Voids 1 Weight 136.078 kg 04/16/22 07:01 04/16/22 07:01
--- NOTE | 2022-04-16 15:18 | P.CONS ---
History of Present Illness - Reason for Consult Consult date: 04/16/22 Concern for malignancy Requesting physician: Levi Rao - Chief Complaint Worsening shortness of breath - History of Present Illness Mr. Burk is a very pleasant 76-year-old gentleman with a history of multiple comorbidities who is here for worsening shortness of breath, found to be hypoxic. He has a long-standing smoking history as well as a history of COPD and KRIS on CPAP. He noticed weight loss a few weeks ago. Chest x-ray revealed an abnormality in he subsequently underwent a CT which showed bilateral lung nodules as well as mediastinal lymphadenopathy. He also developed a neck nodule that was slowly growing. He had progressive weakness and shortness of breath and presented here a few days ago. Biopsy was recommended however he preferred to be discharged and have this done outpatient. He comes back with worsening shortness of breath. Admitted for further workup and COPD exacerbation treatment. Also concerned about an STEMI his he was found to have elevated troponin, cardiology consulted. Labs revealed WBC 11.1, hemoglobin 12.7, platel et 127, creatinine 1.35, AST 86, ALT 76, alk phos 258, total bilirubin 1.3, BNP 1600. Past Medical History Past Medical History: Blood Disorder, Chest Pain / Angina, COPD, Deep Vein Thrombosis (DVT), GERD/Reflux, Pneumonia, Renal Disease, Sleep Apnea/CPAP/BIPAP Additional Past Medical History / Comment(s): abdominal aortic aneursym. prothrombin gene mutation. has cpap machine. prediabetic,hx diverticulitis, sinus problems with drainage, adrenal insufficiency History of Any Multi-Drug Resistant Organisms: MRSA Year Discovered:: 2016 MDRO Source:: back Past Surgical History: Appendectomy, Bowel Resection, Cholecystectomy, Heart Catheterization With Stent, Hernia Repair, Prostate Surgery Additional Past Surgical History / Comment(s): growth removed from side. heart cath x2 with 3-4 stents Past Anesthesia/Blood Transfusion Reactions: Motion Sickness Date of Last Stent Placement:: 2014 Past Psychological History: Anxiety Smoking Status: Current every day smoker Past Alcohol Use History: None Reported Past Drug Use History: None Reported - Past Family History Mother Family Medical History: No Reported History Medications and Allergies Home Medications Medication Instructions Recorded Confirmed Type Albuterol Inhaler [Ventolin Hfa 2 puff INHALATION RT-Q4H PRN 05/13/19 04/15/22 History Inhaler] Cetirizine HCl [Zyrtec] 10 mg PO DAILY 05/13/19 04/15/22 History Clopidogrel Bisulfate [Plavix] 75 mg PO DAILY 05/13/19 04/15/22 History Ezetimibe [Zetia] 10 mg PO HS 05/13/19 04/15/22 History Isosorbide Mononitrate [Isosorbide 30 mg PO DAILY 05/13/19 04/15/22 History Mononitrate ER] Montelukast [Singulair] 10 mg PO HS 05/13/19 04/15/22 History Pantoprazole Sodium [Protonix] 40 mg PO BID 05/13/19 04/15/22 History cycloSPORINE 0.05% OPHTH SOLN 1 drop BOTH EYES BID 05/13/19 04/15/22 History [Restasis] Gabapentin 600 mg PO TID 11/10/21 04/15/22 History Potassium Chloride [K-Tab ER] 20 meq PO BID 11/10/21 04/15/22 History Torsemide [Demadex] 20 mg PO DAILY 11/10/21 04/15/22 History Vitamin B Complex 1 cap PO HS 11/10/21 04/15/22 History calcitrioL [Calcitriol] 0.25 mcg PO MOWEFR 11/10/21 04/15/22 History Acetaminophen-Codeine 300-30mg 1 - 2 tab PO Q6H PRN 04/11/22 04/15/22 History [Tylenol w/codeine #3] Budesonide [Pulmicort] 0.5 mg INHALATION RT-BID 04/11/22 04/15/22 History Chlorhexidine Gluconate [Peridex] 15 ml PO BID 04/11/22 04/15/22 History Fluticasone Nasal [place] [Flonase 2 spr EA NOSTRIL DAILY PRN 04/11/22 04/15/22 History Nasal [place]] Glimepiride [Amaryl] 0.5 mg PO AC-BRKFST 04/11/22 04/15/22 History Ipratropium-Albuterol Nebulize 3 ml INHALATION RT-BID 04/11/22 04/15/22 History [Duoneb 0.5 mg-3 mg/3 ml Soln] Metoprolol Tartrate [Lopressor] 12.5 mg PO BID 04/11/22 04/15/22 History Torsemide [Demadex] 10 mg PO Q48H 04/11/22 04/15/22 History allopurinoL [Allopurinol] 300 mg PO HS 04/11/22 04/15/22 History diazePAM [Valium] 5 mg PO DAILY PRN 04/11/22 04/15/22 History prednisoLONE ACETATE 1% OPHTH 1 drop LEFT EYE BID 04/11/22 04/15/22 History [Pred Forte 1%] traMADol HCL 50 mg PO Q8H PRN 04/11/22 04/15/22 History traZODone HCL [Desyrel] 50 - 100 mg PO HS PRN 04/11/22 04/15/22 History Ergocalciferol [Vitamin D2 (1250 1,250 mcg PO Q14D 04/15/22 04/15/22 History Mcg = [id number] Iu)] Allergies Allergy/AdvReac Type Severity Reaction Status Date / Time cyclobenzaprine Allergy Facial Verified 04/15/22 10:42 [From Flexeril] Swelling Yjavdmv-QCA-UeZ Reductase Allergy Unknown Verified 04/15/22 10:42 Inhibitor [Xvmkgkd-Wxr-Xuz Reductase Inhibitor] Physical Exam Vitals: Vital Signs Temp Pulse Pulse Resp BP BP Pulse Ox 04/16/22 11:25 97.6 F 105 H 20 109/73 95 04/16/22 11:06 82 04/16/22 10:54 80 04/16/22 08:00 98 F 95 20 121/75 04/16/22 04:00 96 18 127/72 94 L 04/16/22 03:30 78 04/16/22 03:20 92 94 L 04/16/22 00:00 90 18 132/68 95 04/15/22 20:33 92 L 04/15/22 20:32 106 H 04/15/22 20:18 92 L 04/15/22 20:17 107 H 04/15/22 20:00 97.8 F 105 H 16 139/66 92 L 04/15/22 18:42 104 H 18 122/70 93 L 04/15/22 16:43 98.8 F 110 H 18 109/64 93 L 04/15/22 15:18 101 H 04/15/22 15:04 102 H 04/15/22 13:13 102 H 18 109/80 92 L Intake and Output 04/15/22 04/16/22 04/16/22 22:59 06:59 14:59 Intake Total 485 485 180 Output Total 600 650 Balance 485 115 -470 Intake: Oral 485 485 180 Output: Urine 600 650 Other: Voiding Method Urinal Urinal # Voids 1 Weight 136.078 kg General: No acute distress HEENT: No scleral icterus Neck: Supple Lungs: No respiratory distress Heart: Regular rate Abdomen: Nondistended Neuro: Alert and oriented 3 Skin: No jaundice Psych: Appropriate affect Results CBC & Chem 7: 04/16/22 07:01 04/16/22 07:01 Labs: Abnormal Lab Results - Last 24 Hours (Table) 04/15/22 04/15/22 04/15/22 Range/Units 10:52 14:28 14:28 WBC (3.8-10.6) k/uL RBC (4.30-5.90) m/uL Hgb (13.0-17.5) gm/dL Plt Count (150-450) k/uL Neutrophils # (1.3-7.7) k/uL Sodium (137-145) mmol/L BUN (9-20) mg/dL Creatinine (0.66-1.25) mg/dL Glucose (74-99) mg/dL POC Glucose (mg/dL) (70-110) mg/dL Hemoglobin A1c 7.1 H (0.0-6.0) % Calcium (8.4-10.2) mg/dL Magnesium (1.6-2.3) mg/dL AST (17-59) U/L ALT (4-49) U/L Alkaline Phosphatase (38-126) U/L Troponin I 0.076 H* 0.080 H* (0.000-0.034) ng/mL Total Protein (6.3-8.2) g/dL Albumin (3.5-5.0) g/dL 04/15/22 04/16/22 04/16/22 Range/Units 19:06 06:10 07:01 WBC 11.1 H (3.8-10.6) k/uL RBC 4.10 L (4.30-5.90) m/uL Hgb 12.7 L (13.0-17.5) gm/dL Plt Count 127 L (150-450) k/uL Neutrophils # 8.2 H (1.3-7.7) k/uL Sodium (137-145) mmol/L BUN (9-20) mg/dL Creatinine (0.66-1.25) mg/dL Glucose (74-99) mg/dL POC Glucose (mg/dL) 147 H 130 H (70-110) mg/dL Hemoglobin A1c (0.0-6.0) % Calcium (8.4-10.2) mg/dL Magnesium (1.6-2.3) mg/dL AST (17-59) U/L ALT (4-49) U/L Alkaline Phosphatase (38-126) U/L Troponin I (0.000-0.034) ng/mL Total Protein (6.3-8.2) g/dL Albumin (3.5-5.0) g/dL 04/16/22 Range/Units 07:01 WBC (3.8-10.6) k/uL RBC (4.30-5.90) m/uL Hgb (13.0-17.5) gm/dL Plt Count (150-450) k/uL Neutrophils # (1.3-7.7) k/uL Sodium 136 L (137-145) mmol/L BUN 28 H (9-20) mg/dL Creatinine 1.35 H (0.66-1.25) mg/dL Glucose 111 H (74-99) mg/dL POC Glucose (mg/dL) (70-110) mg/dL Hemoglobin A1c (0.0-6.0) % Calcium 8.3 L (8.4-10.2) mg/dL Magnesium 2.4 H (1.6-2.3) mg/dL AST 86 H (17-59) U/L ALT 76 H (4-49) U/L Alkaline Phosphatase 258 H (38-126) U/L Troponin I (0.000-0.034) ng/mL Total Protein 5.5 L (6.3-8.2) g/dL Albumin 2.9 L (3.5-5.0) g/dL Chest x-ray: report reviewed CT scan - chest: report reviewed Assessment and Plan Assessment: 1. Concern for metastatic malignancy 2. COPD exacerbation 3. Elevated troponin 4. Elevated BNP 5. Smoking 6. Transaminitis Plan: Mr. Wm is a very pleasant 76-year-old gentleman with a history of multi ple comorbidities including smoking, COPD, and KRIS on CPAP who is here for worsening shortness of breath. Recently found to have bilateral lung nodules as well as mediastinal hilar lymphadenopathy and a slowly growing neck mass with associated weight loss. Plan was for outpatient biopsy per patient request however he comes back with worsening shortness of breath. Cardiology and pulmonary on board. He will need a biopsy to confirm suspicion of metastatic disease. We'll also need staging workup with CT of the abdomen and pelvis. He does have mildly elevated transaminases of unclear etiology at this point. Further workup pending biopsy and CT results.
[2022-04-16] MEDS: methylPREDNISolone SOD SUCCI 40 MG/ML 1 ML VIAL IV SCH ×2 (15:48→23:42)
[2022-04-16 16:32] LABS: Glucose,Whole Blood 118 mg/dL (70-110)
--- NOTE | 2022-04-16 17:03 | P.PN ---
Progress Note - Text Progress Note Date: 04/16/22 Chief Complaint: Weak and tired This is a 76-year-old patient who follows with Dr. Stepan Moyer. Patient was just admitted to the hospital on April 11 was found to be in COPD exacerbation. That time computed tomography scan of the chest did show some pulmonary nodules. Patient has not been eating well. Weak and tired. Legs feeling very weak. PE was ruled out with CT angiogram. Also lymph nodes were found. Emphysema changes. Patient had left the hospital prematurely. Patient had been also diagnosed with diastolic CHF, GERD, CAD with stent, hyperlipidemia, fatty liver, diabetes type 2. Patient was seen by Dr. Ruthann Smith from pulmonary. Patient was supposed to follow with him in the office Patient now returns to the hospital feeling very weak. Poor appetite. Only drinking water. Barely able to walk. Has congested cough. Has been a smoker. No chest pain. Feels rundown. No fever no chills Admitted with acute medical asthenia, COPD exacerbation, possible pneumonia April 16: On BiPAP. Tired. Decreased oral intake. DuoNeb, IV ceftriaxone, steroids Active Medications Acetaminophen (Acetaminophen Tab 325 Mg Tab) 650 mg PO Q6HR PRN PRN Reason: Mild Pain or Fever > 100.5 Last Admin: 04/16/22 11:13 Dose: 650 mg Albuterol/Ipratropium (Ipratropium-Albuterol 3 Ml Neb) 3 ml INHALATION RT-Q4H [facility] Last Admin: 04/16/22 15:22 Dose: 3 ml Allopurinol (Allopurinol 300 Mg Tab) 300 mg PO HS [facility] Last Admin: 04/15/22 20:54 Dose: 300 mg Budesonide (Budesonide 0.5 Mg/2 Ml Nebu) 0.5 mg INHALATION RT-BID [facility] Last Admin: 04/16/22 08:10 Dose: Not Given Calcitriol (Calcitriol 0.25 Mcg Cap) 0.25 mcg PO MOWEFR [facility] Last Admin: 04/15/22 16:41 Dose: 0.25 mcg Calcium Carbonate/Glycine (Calcium Carbonate 500 Mg Chewable) 1,000 mg PO Q4HR PRN PRN Reason: Dyspepsia Cyclosporine (Cyclosporine 0.05% Ophth 0.4 Ml Droperette) 1 drops BOTH EYES BID [facility] Last Admin: 04/16/22 08:04 Dose: 1 drops Dextrose/Water (Dextrose 50% Syringe 50 Ml) 25 ml IVP PER PROTOCOL PRN; Protocol PRN Reason: Hypoglycemia Dextrose/Water (Dextrose 50% Syringe 50 Ml) 50 ml IVP PER PROTOCOL PRN; Protocol PRN Reason: Hypoglycemia Ezetimibe (Ezetimibe 10 Mg Tab) 10 mg PO [facility] Last Admin: 04/15/22 20:54 Dose: 10 mg Gabapentin (Gabapentin 300 Mg Cap) 300 mg PO TID [facility] Last Admin: 04/16/22 15:48 Dose: 300 mg Sodium Chloride (Saline 0.9%) 1,000 mls @ 75 mls/hr IV .[id number] [facility] Last Admin: 04/16/22 04:43 Dose: Not Given Ceftriaxone Sodium 1 gm/ (Sodium Chloride) 50 mls @ 100 mls/hr IVPB [facility]; Protocol Insulin Aspart (Insulin Aspart (Novolog) 100 Unit/Ml Vial) 0 unit SQ ACHS [facility]; Protocol Last Admin: 04/16/22 11:53 Dose: Not Given Isosorbide Mononitrate (Isosorbide Mononitrate Er 30 Mg Tab.Er.24h) 30 mg PO DAILY [facility] Last Admin: 04/16/22 08:03 Dose: 30 mg Lactulose (Lactulose 20 Gm/30 Ml Cup) 20 gm PO DAILY PRN PRN Reason: Constipation Lorazepam (Lorazepam 0.5 Mg Tab) 0.5 mg PO Q6HR PRN PRN Reason: Anxiety Methylprednisolone Sodium Succinate (Methylprednisolone Sod Succi 40 Mg/Ml 1 Ml Vial) 40 mg IV Q8HR [facility] Last Admin: 04/16/22 15:48 Dose: 40 mg Metoprolol Tartrate (Metoprolol Tartrate 12.5 Mg Tab) 12.5 mg PO BID [facility] Last Admin: 04/16/22 08:03 Dose: 12.5 mg Metronidazole (Metronidazole 500 Mg Tab) 500 mg PO TID [facility]; Protocol Last Admin: 04/16/22 15:48 Dose: 500 mg Miscellaneous Information (Potassium Replacement Protocol 1 Each Misc) 1 each MISCELLANE DAILY PRN; Protocol PRN Reason: Per Protocol Montelukast Sodium (Montelukast 10 Mg Tab) 10 mg PO [facility] Last Admin: 04/15/22 20:54 Dose: 10 mg Naloxone HCl (Naloxone 0.4 Mg/Ml 1 Ml Vial) 0.2 mg IV Q2M PRN PRN Reason: Opioid Reversal Nicotine (Nicotine 14mg/24hr Patch) 1 patch TRANSDERM DAILY [facility] Ondansetron HCl (Ondansetron 4 Mg/2 Ml Vial) 4 mg IVP Q8HR PRN PRN Reason: Nausea And Vomiting Pantoprazole Sodium (Pantoprazole 40 Mg Tablet) 40 mg PO BID@0730,1730 [facility] Last Admin: 04/16/22 15:48 Dose: 40 mg Potassium Chloride (Potassium Chloride Er 20 Meq Tab.Er) 20 meq PO BID [facility] Last Admin: 04/16/22 08:04 Dose: 20 meq Prednisolone Acetate (Prednisolone Acetate 1% Ophth Drops 5 Ml Btl) 1 drops LEFT EYE BID [facility] Last Admin: 04/16/22 08:04 Dose: 1 drops Torsemide (Torsemide 20 Mg Tab) 20 mg PO DAILY [facility] Last Admin: 04/16/22 08:03 Dose: 20 mg Tramadol HCl (Tramadol 50 Mg Tab) 50 mg PO Q8H PRN PRN Reason: Pain Past medical history to include: COPD, pulmonary nodule workup in place, abdominal aortic aneurysm with stent, CHF diastolic, GERD, CAD with stent, obesity with sleep apnea, hyperlipidemia, fatty liver, diabetes type 2 Social history: . Smoked 2 packs a day for most of his life. Now down to half a pack a day.. No alcohol Family history: Reviewed, noncontributory to presentation Physical examination: VITAL SIGNS: 97.3, 99, 21, 108/70, 94% on CPAP GENERAL: Laying in bed, tired, short of breath EYES: Pupils equal. Conjunctiva normal. HEENT: External appearance of nose and ears normal, oral cavity grossly normal. NECK: JVD unable to assess; masses not palpable. HEART: First and second heart sounds are normal; some edema. LUNGS: Respiratory rate increased, accessory muscles of looking, not able to speak in full sentences; diminished breath sounds prolonged expiration and wheezing. ABDOMEN: Soft, nontender, liver spleen not palpable, no masses palpable. PSYCH: Alert and oriented x3; mood and affect anxiousl. MUSCULOSKELETAL:No Clubbing/cyanosis;muscles-grossly intact, evidence of OA INVESTIGATIONS, reviewed in the clinical context: April 16: White count 11.1 hemoglobin 12.7 platelets 127 potassium 3.5 BUN 28 creatinine 1.35 White count 11.7 hemoglobin 13.4 platelets 173 ABG: PH 7.5 pCO2 30 pO2 139 sodium 135 potassium 3.3 BUN 32 creatinine 1.44 Troponin I 0.076, 80 AST 82 ALT 72 UA trace protein EKG tracing personally reviewed by me-PVCs. Heart rate 110. No specific ST segment changes Chest x-ray film personally reviewed by [id number] possible mass some patchy basilar opacities. Previous testing: Creatinine 1.5 on July 2021 Chest CTA: Pulmonary nodules in the right upper lobe and left lower lobe and right pulmonary hilum and mediastinal lymphadenopathy, or indeterminate right internal no deal 1.8 cm. Hepatic steatosis. Hyperinflation. Assessment and plan: -Acute COPD exacerbation in a current smoker: Slow to respond DuoNeb every 4. Nebulized Pulmicort -Acute hypoxic respiratory failure: Slow to respond On BiPAP -Suspected metastatic malignancy Being followed by pulmonary and oncology -Possible postobstructive pneumonia: Slow to respond IV ceftriaxone -Chronic nicotine dependence, cigarette smoker Nicotine patch -Diabetes mellitus type 2 on oral hypoglycemic Accu-Chek and sliding scale. -Chronic gout Allopurinol 300 mg daily at bedtime -Chronic kidney disease possibly combination of diabetic nephropathy and hypertensive nephrosclerosis stage III Follow renal function -GERD Protonix 40 mg twice a day -Diabetic peripheral neuropathy Neurontin 300 mg 3 times a day -Obstructive sleep apnea Currently not using CPAP -Prothrombin gene mutation -Chronically elevated troponin secondary to CK D. No ACS dynamics ax consultant -with stent Plavix Lopressor -Full code DuoNeb. Nebulized and IV steroids. IV ceftriaxone. BiPAP.. Follow with pulmonary and oncology.
[2022-04-16 18:41] LABS: Glucose,Whole Blood 193 mg/dL (70-110)
[2022-04-16 19:10] LABS: ABG Base Excess -1.7 mmol/L; ABG HCO3 22 mmol/L (21-25); ABG Oxygen Saturation 93.7 % (94-97); ABG PCO2 29 mmHg (35-45); ABG PH 7.49 (7.35-7.45); ABG PO2 65 mmHg (83-108); ABG TCO2 23 mmol/L (19-24); Allen Test Performed? Yes
[2022-04-16] MEDS: MONTELUKAST 10 MG TAB PO SCH (20:02)
[2022-04-16] MEDS: ENOXAPARIN 30 MG/0.3 ML SYRINGE SQ SCH (20:02)
[2022-04-16] MEDS: allopurinoL 300 MG TAB PO SCH (20:03)
[2022-04-16] MEDS: EZETIMIBE 10 MG TAB PO SCH (20:03)
[2022-04-16 20:13] LABS: Glucose,Whole Blood 242 mg/dL (70-110)
--- NOTE | 2022-04-16 21:41 | CT ---
EXAMINATION TYPE: CT angio chest DATE OF EXAM: 04/16/2022 COMPARISON: 04/11/2022 HISTORY: SOB. rule out PE CT DLP: 924.8 mGycm Automated exposure control for dose reduction was used. CONTRAST: Performed with IV Contrast, patient injected with 80 mL of Isovue 370. CT angiogram of the chest performed with IV contrast and Three-D postprocessed images. There are mild pulmonary emphysematous changes. There are some coarse interstitial density in the pos terior lung garner bilaterally. There is some nodular consolidation and atelectasis left lower lobe. There are enlarged paratracheal lymph nodes. There is moderate right sided bronchial adenopathy with lymph nodes up to 2 cm. There is 3 cm masslike infiltrate lateral to the right pulmonary hilum. There is rounded 2 cm masslike infiltrate left lower lobe. No evidence of filling defect in the pulmonary arteries. Thoracic aorta is intact. No aneurysm. The b koffi thorax is intact. IMPRESSION: No evidence of pulmonary embolism. Bilateral pulmonary masses suspicious for tumor. No change compare d to recent exam. Left lower lobe patchy infiltrate. Mediastinal and right bronchial adenopathy consi stent with tumor. Pulmonary emphysema. Bilateral lower lobe pulmonary airspace infiltrates and atelec tasis are increased compared to recent exam.
[2022-04-17] MEDS: IPRATROPIUM-ALBUTEROL 3 ML NEB INHALATION SCH ×7 (00:10→23:25)
[2022-04-17 06:17] LABS: Glucose,Whole Blood 165 mg/dL (70-110)
[2022-04-17] MEDS: PANTOPRAZOLE 40 MG TABLET PO SCH ×2 (06:34→17:13)
[2022-04-17] MEDS: INSULIN ASPART (NovoLOG) 100 UNIT/ML VIAL SQ SCH ×4 (06:34→21:01)
[2022-04-17] MEDS: SODIUM CHLORIDE 0.9% 1,000 ML IV SCH ×2 (06:37→21:09)
[2022-04-17] MEDS: METOPROLOL TARTRATE 12.5 MG TAB PO SCH ×2 (08:04→20:57)
[2022-04-17] MEDS: ENOXAPARIN 30 MG/0.3 ML SYRINGE SQ SCH ×2 (08:04→20:57)
[2022-04-17] MEDS: ACETAMINOPHEN TAB 325 MG TAB PO PRN ×2 (08:04→17:16)
[2022-04-17] MEDS: POTASSIUM CHLORIDE ER 20 MEQ TAB.ER PO SCH ×2 (08:06→20:56)
[2022-04-17] MEDS: TORSEMIDE 20 MG TAB PO SCH (08:06)
[2022-04-17] MEDS: GABAPENTIN 300 MG CAP PO SCH ×3 (08:06→20:58)
[2022-04-17] MEDS: metroNIDAZOLE 500 MG TAB PO SCH ×3 (08:06→20:58)
[2022-04-17] MEDS: ISOSORBIDE MONONITRATE ER 30 MG TAB.ER.24H PO SCH (08:06)
[2022-04-17] MEDS: cycloSPORINE 0.05% OPHTH 0.4 ML DROPERETTE BOTH EYES SCH ×2 (08:06→20:56)
[2022-04-17] MEDS: NICOTINE 14MG/24HR PATCH TRANSDERM SCH (08:06)
[2022-04-17] MEDS: methylPREDNISolone SOD SUCCI 40 MG/ML 1 ML VIAL IV SCH ×2 (08:07→17:13)
[2022-04-17] MEDS: BUDESONIDE 0.5 MG/2 ML NEBU INHALATION SCH ×2 (08:11→19:58)
[2022-04-17] MEDS: prednisoLONE ACETATE 1% OPHTH DROPS 5 ML BTL LEFT EYE SCH ×2 (08:27→20:58)
[2022-04-17 09:53] LABS: HCT 41.2 % (39.0-53.0); HGB 13.1 gm/dL (13.0-17.5); MCH 30.4 pg (25.0-35.0); MCHC 31.9 g/dL (31.0-37.0); MCV 95.6 fL (80.0-100.0); Mean Platelet Volume 9.4; Platelet Count 132 k/uL (150-450); RBC 4.31 m/uL (4.30-5.90); RDW 13.6 % (11.5-15.5); WBC 15.1 k/uL (3.8-10.6)
[2022-04-17 10:12] LABS: Calcium 8.5 mg/dL (8.4-10.2); Potassium 4.2 mmol/L (3.5-5.1)
[2022-04-17 11:55] LABS: Glucose,Whole Blood 236 mg/dL (70-110)
--- NOTE | 2022-04-17 13:14 | P.PN ---
Subjective HISTORY OF PRESENTING ILLNESS Patient is a pleasant 76-year-old male with a history of prior tobacco abuse, COPD, obstructive sleep apnea, CAD status post PCI approximately 2013 per patient, PAD status post peripheral stenting, arthritis, CKD. He presented approximately a week ago and had undergone workup for lymphadenopathy however have left AMA. He then presented with continued weakness. He states weakness has been ongoing and progressive over a year where he has intermittently been using wheelchair however more significant in the last few months and especially the last few weeks. He has been mainly describing left lower extremity weakness as well as left upper extremity shoulder weakness. The lower extremity appears more significant at times he will feel his legs giving out from under him. He denies any actual lightheadedness or dizziness or syncope. He denies any chest pain or pressure. He admits he is very concerned regarding losing his mobility. If he does too much he will get short of breath however usually will get weak before he is able to do that much activity. EKG shows normal sinus rhythm, first-degree AV block, Q waves inferiorly with nonspecific minimal 0.5 mm J point elevation in the inferior and lateral leads as well as PVCs. Blood work shows white blood cell count 11.1, hemoglobin 12.7, sodium 136, 1.4 down to 1.3 with a baseline 1.3-1.4. AST 82, ALT 72, alk phos 254, troponin 0.07, 0.08, proBNP 1620. 04/17 Patient seen and examined. Patient having shortness breath last night and therefore d-dimer is checked which was elevated and underwent another CTA which showed no PE however still concern of metastatic disease. Denies any chest pain or pressure. PHYSICAL EXAMINATION Vital signs reviewed. CONSTITUTIONAL: No apparent distress, obese, chronically ill appearing HEENT: Head is normocephalic. Pupils are equal, round. Sclerae anicteric. Mucous membranes of the mouth are moist. No JVD. No carotid bruit. CHEST EXAMINATION: Lungs are clear to auscultation. No chest wall tenderness is noted on palpation or with deep breathing. HEART EXAMINATION: Regular rate and rhythm. S1, S2 heard. No murmurs, gallops or rub. ABDOMEN: Soft, nontender. Positive bowel sounds. EXTREMITIES: 2+ peripheral pulses, no lower extremity edema and no calf tenderness. NEUROLOGIC EXAMINATION: Patient is awake, alert and oriented x3. ASSESSMENT 1. Elevated troponins, suspect chronically elevated secondary to chronic kidney disease. No significant angina-type symptoms 2. Falls and debility appears mainly related to left lower extremity weakness. No significant lightheadedness or syncope 3. Hypertension 4. PAD with prior history of endovascular treatment 5. CAD with prior PCI 6. Acute on chronic kidney disease 7. Mediastinal lymphadenopathy concerning for malignancy 8. Left upper and left lower extremity weakness 9. Remote tobacco abuse 10. Elevated liver enzymes 11. Leukocytosis PLAN Patient has been very concerned regarding decreased mobility and left lower extremity weakness which has been somewhat progressive. Additionally patient has lymphadenopathy and concern of lung mass with possible cancer. Awaiting possible biopsy. Awaiting 2-D echo. No significant signs of acute coronary syndrome with elevated troponins likely chronically elevated secondary to CKD. Objective - Vital Signs Vital signs: Vital Signs Temp 97.4 F L 04/17/22 12:00 Pulse 83 04/17/22 12:00 Resp 21 04/17/22 12:00 BP 166/76 04/17/22 12:00 Pulse Ox 92 L 04/17/22 12:00 FiO2 50 04/15/22 10:53 Intake & Output 04/16/22 04/17/22 04/17/22 18:59 06:59 18:59 Intake Total 417 950 236 Output Total 650 2600 1650 Balance -024 -6339 -7524 Intake: Intake, IV Titration 50 Amount cefTRIAXone 1 gm In 50 Sodium Chloride 0.9% 50 ml @ 100 mls/hr IVPB HS [facility] Rx#:[id number] Oral 417 900 236 Output: Urine 650 2600 1650 Other: Voiding Method Indwelling Catheter - Labs CBC & Chem 7: 04/17/22 09:39 04/17/22 09:39 Labs: Abnormal Lab Results - Last 24 Hours (Table) 04/16/22 04/16/22 04/16/22 Range/Units 16:30 18:35 19:05 WBC (3.8-10.6) k/uL Plt Count (150-450) k/uL D-Dimer (<0.60) mg/L FEU ABG pH 7.49 H (7.35-7.45) ABG pCO2 29 L (35-45) mmHg ABG pO2 65 L (83-108) mmHg ABG O2 Saturation 93.7 L (94-97) % BUN (9-20) mg/dL Creatinine (0.66-1.25) mg/dL Glucose (74-99) mg/dL POC Glucose (mg/dL) 118 H 193 H (70-110) mg/dL 04/16/22 04/16/22 04/17/22 Range/Units 19:37 20:11 06:15 WBC (3.8-10.6) k/uL Plt Count (150-450) k/uL D-Dimer >34.10 H (<0.60) mg/L FEU ABG pH (7.35-7.45) ABG pCO2 (35-45) mmHg ABG pO2 (83-108) mmHg ABG O2 Saturation (94-97) % BUN (9-20) mg/dL Creatinine (0.66-1.25) mg/dL Glucose (74-99) mg/dL POC Glucose (mg/dL) 242 H 165 H (70-110) mg/dL 04/17/22 04/17/22 04/17/22 Range/Units 09:39 09:39 11:42 WBC 15.1 H (3.8-10.6) k/uL Plt Count 132 L (150-450) k/uL D-Dimer (<0.60) mg/L FEU ABG pH (7.35-7.45) ABG pCO2 (35-45) mmHg ABG pO2 (83-108) mmHg ABG O2 Saturation (94-97) % BUN 32 H (9-20) mg/dL Creatinine 1.30 H (0.66-1.25) mg/dL Glucose 179 H (74-99) mg/dL POC Glucose (mg/dL) 236 H (70-110) mg/dL
--- NOTE | 2022-04-17 16:35 | P.CNNES ---
History of Present Illness Consult date: 04/17/22 Requesting physician: Jadon Smith Reason for Consult: Paraneoplastic syndrome History of Present Illness: Patient is a 76-year-old male came to the hospital by ambulance on 04/15/2022 for increasing shortness of breath. Patient has history of COPD, obstructive sleep apnea, also has weight loss. Patient had computed tomography scan of the chest, which revealed bilateral pulmonary nodules as well as mediastinal lymphadenopathy. Patient has also developed a lump in the lateral side of the neck for which he is going to be scheduled for a biopsy. Concern is for metastatic disease. No malignancy has been identified yet. Patient has developed progressive weakness, therefore concern for paraneoplastic syndrome. This prompted neurology consultation. Patient states that he has been falling for the last couple weeks. He has fell about 10-15 times, and all these are controlled falls. If he falls, he cannot get up by himself. If he tries to stand, he goes sideways. Patient states that he usually can take off BiPAP unit using his one hand. However he was requiring both hands to take off the BiPAP unit. Patient states that recently he has been feeling better, as he is able to take off the BiPAP using one hand. He feels his strength seems to be coming back. He has numbness of both feet, that sometimes goes up to the below knees. Patient has seen Dr. Swartz in the past for numbness and tingling. Also has bilateral carpal tunnel syndrome with a lateral carpal tunnel release in the past. Patient has smoked 2 packs per day for at least 40 years. Still smokes. He has diabetes for last 6-7 years. Patient is very hard of hearing. Review of Systems Weakness, dizziness. Numbness tingling. Shortness of breath. Positive lymph nodes. No fever or chills. No chest pain, abdominal pain, nausea vomiting diarrhea. No rash. All other review systems reviewed, unremarkable. Past Medical History Past Medical History: Blood Disorder, Chest Pain / Angina, COPD, Deep Vein Thrombosis (DVT), GERD/Reflux, Pneumonia, Renal Disease, Sleep Apnea/CPAP/BIPAP Additional Past Medical History / Comment(s): abdominal aortic aneursym. prothrombin gene mutation. has cpap machine. prediabetic,hx diverticulitis, sinus problems with drainage, adrenal insufficiency History of Any Multi-Drug Resistant Organisms: MRSA Date of last positivie culture/infection: 2015 MDRO Source:: back Past Surgical History: Appendectomy, Bowel Resection, Cholecystectomy, Heart Catheterization With Stent, Hernia Repair, Prostate Surgery Additional Past Surgical History / Comment(s): growth removed from side. heart cath x2 with 3-4 stents Past Anesthesia/Blood Transfusion Reactions: Motion Sickness Date of Last Stent Placement:: 2014 Past Psychological History: Anxiety Smoking Status: Current every day smoker Past Alcohol Use History: None Reported Past Drug Use History: None Reported - Past Family History Mother Family Medical History: No Reported History Medications and Allergies Home Medications Medication Instructions Recorded Confirmed Type Albuterol Inhaler [Ventolin Hfa 2 puff INHALATION RT-Q4H PRN 05/13/19 04/15/22 History Inhaler] Cetirizine HCl [Zyrtec] 10 mg PO DAILY 05/13/19 04/15/22 History Clopidogrel Bisulfate [Plavix] 75 mg PO DAILY 05/13/19 04/15/22 History Ezetimibe [Zetia] 10 mg PO HS 05/13/19 04/15/22 History Isosorbide Mononitrate [Isosorbide 30 mg PO DAILY 05/13/19 04/15/22 History Mononitrate ER] Montelukast [Singulair] 10 mg PO HS 05/13/19 04/15/22 History Pantoprazole Sodium [Protonix] 40 mg PO BID 05/13/19 04/15/22 History cycloSPORINE 0.05% OPHTH SOLN 1 drop BOTH EYES BID 05/13/19 04/15/22 History [Restasis] Gabapentin 600 mg PO TID 11/10/21 04/15/22 History Potassium Chloride [K-Tab ER] 20 meq PO BID 11/10/21 04/15/22 History Torsemide [Demadex] 20 mg PO DAILY 11/10/21 04/15/22 History Vitamin B Complex 1 cap PO HS 11/10/21 04/15/22 History calcitrioL [Calcitriol] 0.25 mcg PO MOWEFR 11/10/21 04/15/22 History Acetaminophen-Codeine 300-30mg 1 - 2 tab PO Q6H PRN 04/11/22 04/15/22 History [Tylenol w/codeine #3] Budesonide [Pulmicort] 0.5 mg INHALATION RT-BID 04/11/22 04/15/22 History Chlorhexidine Gluconate [Peridex] 15 ml PO BID 04/11/22 04/15/22 History Fluticasone Nasal [place] [Flonase 2 spr EA NOSTRIL DAILY PRN 04/11/22 04/15/22 Hi story Nasal [place]] Glimepiride [Amaryl] 0.5 mg PO AC-BRKFST 04/11/22 04/15/22 History Ipratropium-Albuterol Nebulize 3 ml INHALATION RT-BID 04/11/22 04/15/22 History [Duoneb 0.5 mg-3 mg/3 ml Soln] Metoprolol Tartrate [Lopressor] 12.5 mg PO BID 04/11/22 04/15/22 History Torsemide [Demadex] 10 mg PO Q48H 04/11/22 04/15/22 History allopurinoL [Allopurinol] 300 mg PO HS 04/11/22 04/15/22 History diazePAM [Valium] 5 mg PO DAILY PRN 04/11/22 04/15/22 History prednisoLONE ACETATE 1% OPHTH 1 drop LEFT EYE BID 04/11/22 04/15/22 History [Pred Forte 1%] traMADol HCL 50 mg PO Q8H PRN 04/11/22 04/15/22 History traZODone HCL [Desyrel] 50 - 100 mg PO HS PRN 04/11/22 04/15/22 History Ergocalciferol [Vitamin D2 (1250 1,250 mcg PO Q14D 04/15/22 04/15/22 History Mcg = [id number] Iu)] Allergies Allergy/AdvReac Type Severity Reaction Status Date / Time cyclobenzaprine Allergy Facial Verified 04/15/22 10:42 [From Flexeril] Swelling Adzytaj-NRC-[id number] Reductase Allergy Unknown Verified 04/15/22 10:42 Inhibitor [Hyjdcqz-Qsr-Auy Reductase Inhibitor] Physical Examination - Vital Signs Vital Signs: Vital Signs Temp Pulse Pulse Resp BP Pulse Ox 04/17/22 12:00 97.4 F L 83 21 166/76 92 L 04/17/22 11:04 89 04/17/22 10:51 88 04/17/22 08:16 93 04/17/22 08:11 92 L 04/17/22 08:10 97.8 F 84 20 175/87 94 L 04/17/22 08:03 90 04/17/22 04:00 90 20 138/86 93 L 04/17/22 03:54 88 04/17/22 03:48 93 L 04/17/22 03:47 82 04/17/22 00:10 94 L 04/17/22 00:00 106 H 18 108/72 85 L 04/16/22 20:59 89 04/16/22 20:48 92 90 L 04/16/22 20:00 97.8 F 97 18 117/76 92 L 04/16/22 19:07 20 92 L 04/16/22 18:28 110/72 94 L 04/16/22 15:59 97.3 F L 99 21 108/70 94 L 04/16/22 15:32 90 04/16/22 15:22 82 Intake and Output 04/16/22 04/17/22 04/17/22 22:59 06:59 14:59 Intake Total 950 236 Output Total 2600 1650 Balance -1650 -1414 Intake: Intake, IV Titration 50 Amount cefTRIAXone 1 gm In 50 Sodium Chloride 0.9% 50 ml @ 100 mls/hr IVPB [facility] Rx#:[id number] Oral 900 236 Output: Urine 2600 1650 Other: Voiding Method Indwelling Catheter Indwelling Catheter Patient is an elderly male, very pleasant, in no acute distress. Patient is alert awake oriented to time place and person. Speech and language functions are normal. Attention, concentration and fund of knowledge is adequate. On cranial examination, pupils are equal, round and reacting to light, visual garner are full on confrontation, with no neglect on double simultaneous stimulation. His extraocular muscles are intact with no nystagmus. Face is symmetric, tongue protrudes to the midline. Palatal elevation and sensation normal, hearing is moderately impaired for conversations, and shoulder shrug normal, facial sensation normal. Shoulder shrug normal. On muscle strength testing, there is no pronator drift and the strength is normal in arms and legs distally and proximally. No weakness noticed in either lower limbs including hip flexion, adduction, abduction knees or ankles or toes. Deep tendon reflexes are (right/left) biceps 2+/2+, brachioradialis 2+/2+, knee 1/0, ankles 1/0 and plantars are flat bilaterally. Sensory to touch is equal with no neglect. Cerebellar function showed no ataxia for [id number]-[id number] testing. No dysdiadochokinesia. Tone and bulk of muscles normal. Gait deferred. Patient is using BiPAP. On general examination, there is no carotid bruit or murmur, S1-S2 audible. Abdomen is soft nontender. Chest is clear. Peripheral pulses are present. No edema. Results - Laboratory Findings CBC and BMP: 04/17/22 09:39 04/17/22 09:39 Abnormal Lab Findings: Abnormal Labs 04/15/22 04/15/22 04/15/22 10:52 10:52 10:52 WBC 11.7 H RBC 4.28 L Hgb Plt Count Neutrophils # 8.9 H D-Dimer ABG pH ABG pCO2 ABG pO2 ABG Total CO2 ABG O2 Saturation Sodium 135 L Potassium 3.3 L Carbon Dioxide 21 L BUN 32 H Creatinine 1.44 H Glucose 162 H POC Glucose (mg/dL) Hemoglobin A1c Calcium Magnesium AST 82 H ALT 72 H Alkaline Phosphatase 254 H Troponin I Total Protein 5.9 L Albumin 3.2 L Urine Protein Trace H 04/15/22 04/15/22 04/15/22 10:52 10:55 14:28 WBC RBC Hgb Plt Count Neutrophils # D-Dimer ABG pH 7.50 H ABG pCO2 30 L ABG pO2 139 H ABG Total CO2 25 H ABG O2 Saturation 99.2 H Sodium Potassium Carbon Dioxide BUN Creatinine Glucose POC Glucose (mg/dL) Hemoglobin A1c Calcium Magnesium AST ALT Alkaline Phosphatase Troponin I 0.076 H* 0.080 H* Total Protein Albumin Urine Protein 04/15/22 04/15/22 04/16/22 14:28 19:06 06:10 WBC RBC Hgb Plt Count Neutrophils # D-Dimer ABG pH ABG pCO2 ABG pO2 ABG Total CO2 ABG O2 Saturation Sodium Potassium Carbon Dioxide BUN Creatinine Glucose POC Glucose (mg/dL) 147 H 130 H Hemoglobin A1c 7.1 H Calcium Magnesium AST ALT Alkaline Phosphatase Troponin I Total Protein Albumin Urine Protein 04/16/22 04/16/22 04/16/22 07:01 07:01 11:34 WBC 11.1 H RBC 4.10 L Hgb 12.7 L Plt Count 127 L Neutrophils # 8.2 H D-Dimer ABG pH ABG pCO2 ABG pO2 ABG Total CO2 ABG O2 Saturation Sodium 136 L Potassium Carbon Dioxide BUN 28 H Creatinine 1.35 H Glucose 111 H POC Glucose (mg/dL) 150 H Hemoglobin A1c Calcium 8.3 L Magnesium 2.4 H AST 86 H ALT 76 H Alkaline Phosphatase 258 H Troponin I Total Protein 5.5 L Albumin 2.9 L Urine Protein 04/16/22 04/16/22 04/16/22 16:30 18:35 19:05 WBC RBC Hgb Plt Count Neutrophils # D-Dimer ABG pH 7.49 H ABG pCO2 29 L ABG pO2 65 L ABG Total CO2 ABG O2 Saturation 93.7 L Sodium Potassium Carbon Dioxide BUN Creatinine Glucose POC Glucose (mg/dL) 118 H 193 H Hemoglobin A1c Calcium Magnesium AST ALT Alkaline Phosphatase Troponin I Total Protein Albumin Urine Protein 04/16/22 04/16/22 04/17/22 19:37 20:11 06:15 WBC RBC Hgb Plt Count Neutrophils # D-Dimer >34.10 H ABG pH ABG pCO2 ABG pO2 ABG Total CO2 ABG O2 Saturation Sodium Potassium Carbon Dioxide BUN Creatinine Glucose POC Glucose (mg/dL) 242 H 165 H Hemoglobin A1c Calcium Magnesium AST ALT Alkaline Phosphatase Troponin I Total Protein Albumin Urine Protein 04/17/22 04/17/22 04/17/22 09:39 09:39 11:42 WBC 15.1 H RBC Hgb Plt Count 132 L Neutrophils # D-Dimer ABG pH ABG pCO2 ABG pO2 ABG Total CO2 ABG O2 Saturation Sodium Potassium Carbon Dioxide BUN 32 H Creatinine 1.30 H Glucose 179 H POC Glucose (mg/dL) 236 H Hemoglobin A1c Calcium Magnesium AST ALT Alkaline Phosphatase Troponin I Total Protein Albumin Urine Protein Assessment and Plan Assessment: * Subjective weakness, with frequent falls for the last 2 weeks. Patient believes he was getting weaker, but now since in the hospital, he is feeling stronger. No evidence of myopathy or weakness. His muscle strength is very normal. Patient does have history of diabetic neuropathy. Also has history of B12 and folate deficiency, which may be contributing. No definitive clinical evidence of paraneoplastic syndrome. * Lymphadenopathy, rule out metastatic disease. * Peripheral neuropathy * Carpal tunnel syndrome * Mild renal insufficiency * Elevated liver enzymes * Chronic tobacco use * Diabetes * Obesity Plan: * No clinical evidence of paraneoplastic syndrome. * Check B12, MMA, folate, hemoglobin A1c, CK, Aldolase * We will start B12, folate replacement (previous history of B12 folate deficiency). * Patient has history of peripheral neuropathy. Consider EMG testing of bi lateral lower extremities as outpatient. * PT OT evaluate gait. * Dr. Samir Morris Will resume neurology service in the morning. * Thank you for the consult.
[2022-04-17 16:54] LABS: Glucose,Whole Blood 206 mg/dL (70-110)
--- NOTE | 2022-04-17 17:17 | P.PN ---
Progress Note - Text Progress Note Date: 04/17/22 Chief Complaint: Weak and tired This is a 76-year-old patient who follows with Dr. Stepan Moyer. Patient was just admitted to the hospital on April 11 was found to be in COPD exacerbation. That time computed tomography scan of the chest did show some pulmonary nodules. Patient has not been eating well. Weak and tired. Legs feeling very weak. PE was ruled out with CT angiogram. Also lymph nodes were found. Emphysema changes. Patient had left the hospital prematurely. Patient had been also diagnosed with diastolic CHF, GERD, CAD with stent, hyperlipidemia, fatty liver, diabetes type 2. Patient was seen by Dr. Ruthann Smith from pulmonary. Patient was supposed to follow with him in the office Patient now returns to the hospital feeling very weak. Poor appetite. Only drinking water. Barely able to walk. Has congested cough. Has been a smoker. No chest pain. Feels rundown. No fever no chills Admitted with acute medical asthenia, COPD exacerbation, possible pneumonia April 16: On BiPAP. Tired. Decreased oral intake. DuoNeb, IV ceftriaxone, steroids April 17: Sitting up in a chair. Some shortness of breath. Discussed at length about tissue diagnosis. He will discuss with pulmonary. Eating about 75%. Using CPAP Active Medications Acetaminophen (Acetaminophen Tab 325 Mg Tab) 650 mg PO Q6HR PRN PRN Reason: Mild Pain or Fever > 100.5 Last Admin: 04/17/22 08:04 Dose: 650 mg Albuterol/Ipratropium (Ipratropium-Albuterol 3 Ml Neb) 3 ml INHALATION RT-Q4H [facility] Last Admin: 04/17/22 15:17 Dose: 3 ml Allopurinol (Allopurinol 300 Mg Tab) 300 mg PO HS [facility] Last Admin: 04/16/22 20:03 Dose: 300 mg Budesonide (Budesonide 0.5 Mg/2 Ml Nebu) 0.5 mg INHALATION RT-BID [facility] Last Admin: 04/17/22 08:11 Dose: 0.5 mg Calcitriol (Calcitriol 0.25 Mcg Cap) 0.25 mcg PO MOWEFR [facility] Last Admin: 04/15/22 16:41 Dose: 0.25 mcg Calcium Carbonate/Glycine (Calcium Carbonate 500 Mg Chewable) 1,000 mg PO Q4HR PRN PRN Reason: Dyspepsia Cyclosporine (Cyclosporine 0.05% Ophth 0.4 Ml [place]) 1 drops BOTH EYES BID [facility] Last Admin: 04/17/22 08:06 Dose: 1 drops Dextrose/Water (Dextrose 50% Syringe 50 Ml) 25 ml IVP PER PROTOCOL PRN; Protocol PRN Reason: Hypoglycemia Dextrose/Water (Dextrose 50% Syringe 50 Ml) 50 ml IVP PER PROTOCOL PRN; Protocol PRN Reason: Hypoglycemia Ezetimibe (Ezetimibe 10 Mg Tab) 10 mg PO [facility] Last Admin: 04/16/22 20:03 Dose: 10 mg Enoxaparin Sodium (Enoxaparin 30 Mg/0.3 Ml Syringe) 30 mg SQ Q12HR [facility] Last Admin: 04/17/22 08:04 Dose: 30 mg Gabapentin (Gabapentin 300 Mg Cap) 300 mg PO TID [facility] Last Admin: 04/17/22 08:06 Dose: 300 mg Sodium Chloride (Saline 0.9%) 1,000 mls @ 75 mls/hr IV .[id number] [facility] Last Admin: 04/17/22 06:37 Dose: Not Given Ceftriaxone Sodium 1 gm/ (Sodium Chloride) 50 mls @ 100 mls/hr IVPB [facility]; Protocol Last Admin: 04/16/22 20:01 Dose: 100 mls/hr Insulin Aspart (Insulin Aspart (Novolog) 100 Unit/Ml Vial) 0 unit SQ ACHS [facility]; Protocol Last Admin: 04/17/22 11:59 Dose: 4 unit Isosorbide Mononitrate (Isosorbide Mononitrate Er 30 Mg Tab.Er.24h) 30 mg PO DAILY [facility] Last Admin: 04/17/22 08:06 Dose: 30 mg Lactulose (Lactulose 20 Gm/30 Ml Cup) 20 gm PO DAILY PRN PRN Reason: Constipation Lorazepam (Lorazepam 0.5 Mg Tab) 0.5 mg PO Q6HR PRN PRN Reason: Anxiety Methylprednisolone Sodium Succinate (Methylprednisolone Sod Succi 40 Mg/Ml 1 Ml Vial) 40 mg IV Q8HR [facility] Last Admin: 04/17/22 08:07 Dose: 40 mg Metoprolol Tartrate (Metoprolol Tartrate 12.5 Mg Tab) 12.5 mg PO BID [facility] Last Admin: 04/17/22 08:04 Dose: 12.5 mg Metronidazole (Metronidazole 500 Mg Tab) 500 mg PO TID [facility]; Protocol Last Admin: 04/17/22 08:06 Dose: 500 mg Miscellaneous Information (Potassium Replacement Protocol 1 Each Misc) 1 each MISCELLANE DAILY PRN; Protocol PRN Reason: Per Protocol Montelukast Sodium (Montelukast 10 Mg Tab) 10 mg PO HS [facility] Last Admin: 04/16/22 20:02 Dose: 10 mg Naloxone HCl (Naloxone 0.4 Mg/Ml 1 Ml Vial) 0.2 mg IV Q2M PRN PRN Reason: Opioid Reversal Nicotine (Nicotine 14mg/24hr Patch) 1 patch TRANSDERM DAILY [facility] Last Admin: 04/17/22 08:06 Dose: 1 patch Ondansetron HCl (Ondansetron 4 Mg/2 Ml Vial) 4 mg IVP Q8HR PRN PRN Reason: Nausea And Vomiting Pantoprazole Sodium (Pantoprazole 40 Mg Tablet) 40 mg PO BID@0730,1730 [facility] Last Admin: 04/17/22 06:34 Dose: 40 mg Potassium Chloride (Potassium Chloride Er 20 Meq Tab.Er) 20 meq PO BID [facility] Last Admin: 04/17/22 08:06 Dose: 20 meq Prednisolone Acetate (Prednisolone Acetate 1% Ophth Drops 5 Ml Btl) 1 drops LEFT EYE BID [facility] Last Admin: 04/17/22 08:27 Dose: 1 drops Torsemide (Torsemide 20 Mg Tab) 20 mg PO DAILY [facility] Last Admin: 04/17/22 08:06 Dose: 20 mg Tramadol HCl (Tramadol 50 Mg Tab) 50 mg PO Q8H PRN PRN Reason: Pain Past medical history to include: COPD, pulmonary nodule workup in place, abdominal aortic aneurysm with stent, CHF diastolic, GERD, CAD with stent, obesity with sleep apnea, hyperlipidemia, fatty liver, diabetes type 2 Social history: . Smoked 2 packs a day for most of his life. Now down to half a pack a day.. No alcohol Family history: Reviewed, noncontributory to presentation Physical examination: VITAL SIGNS: 97.4, 93, 21, 166-76, 92% on CPAP GENERAL: Up in chair, short of breath EYES: Pupils equal. Conjunctiva normal. HEENT: External appearance of nose and ears normal, oral cavity grossly normal. NECK: JVD unable to assess; masses not palpable. HEART: First and second heart sounds are normal; some edema. LUNGS: Respiratory rate increased,; diminished breath sounds prolonged expiration and wheezing. ABDOMEN: Soft, nontender, liver spleen not palpable, no masses palpable. PSYCH: Alert and oriented x3; mood and affect anxiousl. MUSCULOSKELETAL:No Clubbing/cyanosis;muscles-grossly intact, evidence of OA INVESTIGATIONS, reviewed in the clinical context: April 17: White count 15.1 hemoglobin 13.1 percussion 4.2 creatinine 1.3 April 16: White count 11.1 hemoglobin 12.7 platelets 127 potassium 3.5 BUN 28 creatinine 1.35 White count 11.7 hemoglobin 13.4 platelets 173 ABG: PH 7.5 pCO2 30 pO2 139 sodium 135 potassium 3.3 BUN 32 creatinine 1.44 Troponin I 0.076, 80 AST 82 ALT 72 UA trace protein EKG tracing personally reviewed by me-[email or web address]. Heart rate 110. No specific ST segment changes Chest x-ray film personally reviewed by [id number] possible mass some patchy basilar opacities. Previous testing: Creatinine 1.5 on July 2021 Chest CTA: Pulmonary nodules in the right upper lobe and left lower lobe and right pulmonary hilum and mediastinal lymphadenopathy, or indeterminate right internal no deal 1.8 cm. Hepatic steatosis. Hyperinflation. Assessment and plan: -Acute COPD exacerbation in a current smoker: Slow to respond DuoNeb every 4. Nebulized Pulmicort -Acute hypoxic respiratory failure: Slow to respond On BiPAP -Suspected metastatic malignancy Being followed by pulmonary and oncology -Possible postobstructive pneumonia: Slow to respond IV ceftriaxone -Chronic nicotine dependence, cigarette smoker Nicotine patch -Diabetes mellitus type 2 on oral hypoglycemic Accu-Chek and sliding scale. -Chronic gout Allopurinol 300 mg daily at bedtime -Chronic kidney disease possibly combination of diabetic nephropathy and hypertensive nephrosclerosis stage III Follow renal function -GERD Protonix 40 mg twice a day -Diabetic peripheral neuropathy Neurontin 300 mg 3 times a day -Obstructive sleep apnea Currently not using CPAP -Prothrombin gene mutation -Chronically elevated troponin secondary to CK D. 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 Nebulized and IV steroids. IV ceftriaxone. BiPAP.. Follow with pulmonary and oncology. Discussed with patient.
[2022-04-17] MEDS: EZETIMIBE 10 MG TAB PO SCH (20:57)
[2022-04-17] MEDS: traMADol 50 MG TAB PO PRN (20:57)
[2022-04-17] MEDS: allopurinoL 300 MG TAB PO SCH (20:57)
[2022-04-17] MEDS: MONTELUKAST 10 MG TAB PO SCH (20:58)
[2022-04-17 20:59] LABS: Glucose,Whole Blood 244 mg/dL (70-110)
[2022-04-17] MEDS: LORazepam 0.5 MG TAB PO PRN (21:01)
[2022-04-18] MEDS: methylPREDNISolone SOD SUCCI 40 MG/ML 1 ML VIAL IV SCH ×4 (00:11→23:48)
[2022-04-18] MEDS: IPRATROPIUM-ALBUTEROL 3 ML NEB INHALATION SCH ×6 (02:28→23:26)
[2022-04-18 06:20] LABS: Glucose,Whole Blood 153 mg/dL (70-110)
[2022-04-18] MEDS: PANTOPRAZOLE 40 MG TABLET PO SCH ×2 (06:23→16:59)
[2022-04-18] MEDS: INSULIN ASPART (NovoLOG) 100 UNIT/ML VIAL SQ SCH ×4 (06:23→20:47)
[2022-04-18] MEDS: BUDESONIDE 0.5 MG/2 ML NEBU INHALATION SCH ×2 (07:37→19:12)
[2022-04-18] MEDS ORDERED: CYANOCOBALAMIN 1,000 MCG/ML 1 ML VIAL IM ONE (09:00)
[2022-04-18] MEDS: ACETAMINOPHEN TAB 325 MG TAB PO PRN ×2 (09:48→16:59)
[2022-04-18] MEDS: TORSEMIDE 20 MG TAB PO SCH (09:49)
[2022-04-18] MEDS: POTASSIUM CHLORIDE ER 20 MEQ TAB.ER PO SCH ×2 (09:49→20:47)
[2022-04-18] MEDS: FOLIC ACID 1 MG TAB PO SCH (09:49)
[2022-04-18] MEDS: GABAPENTIN 300 MG CAP PO SCH ×3 (09:49→20:47)
[2022-04-18] MEDS: ENOXAPARIN 30 MG/0.3 ML SYRINGE SQ SCH ×2 (09:49→20:47)
[2022-04-18] MEDS: ISOSORBIDE MONONITRATE ER 30 MG TAB.ER.24H PO SCH (09:49)
[2022-04-18] MEDS: METOPROLOL TARTRATE 12.5 MG TAB PO SCH ×2 (09:49→20:47)
[2022-04-18] MEDS: NICOTINE 14MG/24HR PATCH TRANSDERM SCH (09:49)
[2022-04-18] MEDS: metroNIDAZOLE 500 MG TAB PO SCH ×3 (09:49→20:47)
[2022-04-18] MEDS: prednisoLONE ACETATE 1% OPHTH DROPS 5 ML BTL LEFT EYE SCH ×2 (09:50→20:47)
[2022-04-18] MEDS: cycloSPORINE 0.05% OPHTH 0.4 ML DROPERETTE BOTH EYES SCH ×2 (09:50→20:47)
[2022-04-18] MEDS: SODIUM CHLORIDE 0.9% 1,000 ML IV SCH ×2 (09:51→22:28)
--- NOTE | 2022-04-18 10:13 | P.GSCN ---
History of Present Illness Consult date: 04/18/22 Reason for Consult: lung masses for biopsy History of present illness: asked to do percutaneous biopsy, ct reviewed, defer due to central lesions Past Medical History Past Medical History: Blood Disorder, Chest Pain / Angina, COPD, Deep Vein Thrombosis (DVT), GERD/Reflux, Pneumonia, Renal Disease, Sleep Apnea/CPAP/BIPAP Additional Past Medical History / Comment(s): abdominal aortic aneursym. prothrombin gene mutation. has cpap machine. prediabetic,hx diverticulitis, sinus problems with drainage, adrenal insufficiency History of Any Multi-Drug Resistant Organisms: MRSA Year Discovered:: 2016 MDRO Source:: back Past Surgical History: Appendectomy, Bowel Resection, Cholecystectomy, Heart Catheterization With Stent, Hernia Repair, Prostate Surgery Additional Past Surgical History / Comment(s): growth removed from side. heart cath x2 with 3-4 stents Past Anesthesia/Blood Transfusion Reactions: Motion Sickness Date of Last Stent Placement:: 2014 Past Psychological History: Anxiety Smoking Status: Current every day smoker Past Alcohol Use History: None Reported Past Drug Use History: None Reported - Past Family History Mother Family Medical History: No Reported History Medications and Allergies Home Medications Medication Instructions Recorded Confirmed Type Albuterol Inhaler [Ventolin Hfa 2 puff INHALATION RT-Q4H PRN 05/13/19 04/15/22 History Inhaler] Cetirizine HCl [Zyrtec] 10 mg PO DAILY 05/13/19 04/15/22 History Clopidogrel Bisulfate [Plavix] 75 mg PO DAILY 05/13/19 04/15/22 History Ezetimibe [Zetia] 10 mg PO HS 05/13/19 04/15/22 History Isosorbide Mononitrate [Isosorbide 30 mg PO DAILY 05/13/19 04/15/22 History Mononitrate ER] Montelukast [Singulair] 10 mg PO HS 05/13/19 04/15/22 History Pantoprazole Sodium [Protonix] 40 mg PO BID 05/13/19 04/15/22 History cycloSPORINE 0.05% OPHTH SOLN 1 drop BOTH EYES BID 05/13/19 04/15/22 History [Restasis] Gabapentin 600 mg PO TID 11/10/21 04/15/22 History Potassium Chloride [K-Tab ER] 20 meq PO BID 11/10/21 04/15/22 History Torsemide [Demadex] 20 mg PO DAILY 11/10/21 04/15/22 History Vitamin B Complex 1 cap PO HS 11/10/21 04/15/22 History calcitrioL [Calcitriol] 0.25 mcg PO MOWEFR 11/10/21 04/15/22 History Acetaminophen-Codeine 300-30mg 1 - 2 tab PO Q6H PRN 04/11/22 04/15/22 History [Tylenol w/codeine #3] Budesonide [Pulmicort] 0.5 mg INHALATION RT-BID 04/11/22 04/15/22 History Chlorhexidine Gluconate [Peridex] 15 ml PO BID 04/11/22 04/15/22 History Fluticasone Nasal [place] [Flonase 2 spr EA NOSTRIL DAILY PRN 04/11/22 04/15/22 History Nasal [place]] Glimepiride [Amaryl] 0.5 mg PO AC-BRKFST 04/11/22 04/15/22 History Ipratropium-Albuterol Nebulize 3 ml INHALATION RT-BID 04/11/22 04/15/22 History [Duoneb 0.5 mg-3 mg/3 ml Soln] Metoprolol Tartrate [Lopressor] 12.5 mg PO BID 04/11/22 04/15/22 History Torsemide [Demadex] 10 mg PO Q48H 04/11/22 04/15/22 History allopurinoL [Allopurinol] 300 mg PO HS 04/11/22 04/15/22 History diazePAM [Valium] 5 mg PO DAILY PRN 04/11/22 04/15/22 History prednisoLONE ACETATE 1% OPHTH 1 drop LEFT EYE BID 04/11/22 04/15/22 History [Pred Forte 1%] traMADol HCL 50 mg PO Q8H PRN 04/11/22 04/15/22 History traZODone HCL [Desyrel] 50 - 100 mg PO HS PRN 04/11/22 04/15/22 History Ergocalciferol [Vitamin D2 (1250 1,250 mcg PO Q14D 04/15/22 04/15/22 History Mcg = 15549 Iu)] Allergies Allergy/AdvReac Type Severity Reaction Status Date / Time cyclobenzaprine Allergy Facial Verified 04/15/22 10:42 [From Flexeril] Swelling Dngkccq-[id number]-AyN Reductase Allergy Unknown Verified 04/15/22 10:42 Inhibitor [Trmfoko-Xmf-Qib Reductase Inhibitor] Surgical - Exam Vital Signs Temp Pulse Resp BP Pulse Ox 99.0 F 110 H 18 114/82 79 L 04/15/22 10:33 04/15/22 10:33 04/15/22 10:33 04/15/22 10:33 04/15/22 10:33 Results - Labs 04/17/22 09:39 04/17/22 09:39 Abnormal Lab Results - Last 24 Hours (Table) 04/17/22 04/17/22 04/17/22 Range/Units 09:39 11:42 16:44 BUN 32 H (9-20) mg/dL Creatinine 1.30 H (0.66-1.25) mg/dL Glucose 179 H (74-99) mg/dL POC Glucose (mg/dL) 236 H 206 H (70-110) mg/dL 04/17/22 04/18/22 Range/Units 20:57 06:19 BUN (9-20) mg/dL Creatinine (0.66-1.25) mg/dL Glucose (74-99) mg/dL POC Glucose (mg/dL) 244 H 153 H (70-110) mg/dL Diabetes panel 04/17/22 Range/Units 09:39 Sodium 137 (137-145) mmol/L Potassium 4.2 (3.5-5.1) mmol/L Chloride 102 (98-107) mmol/L Carbon Dioxide 25 (22-30) mmol/L BUN 32 H (9-20) mg/dL Creatinine 1.30 H (0.66-1.25) mg/dL Glucose 179 H (74-99) mg/dL Calcium 8.5 (8.4-10.2) mg/dL Calcium panel 04/17/22 Range/Units 09:39 Calcium 8.5 (8.4-10.2) mg/dL Pituitary panel 04/17/22 Range/Units 09:39 Sodium 137 (137-145) mmol/L Potassium 4.2 (3.5-5.1) mmol/L Chloride 102 (98-107) mmol/L Carbon Dioxide 25 (22-30) mmol/L BUN 32 H (9-20) mg/dL Creatinine 1.30 H (0.66-1.25) mg/dL Glucose 179 H (74-99) mg/dL Calcium 8.5 (8.4-10.2) mg/dL Adrenal panel 04/17/22 Range/Units 09:39 Sodium 137 (137-145) mmol/L Potassium 4.2 (3.5-5.1) mmol/L Chloride 102 (98-107) mmol/L Carbon Dioxide 25 (22-30) mmol/L BUN 32 H (9-20) mg/dL Creatinine 1.30 H (0.66-1.25) mg/dL Glucose 179 H (74-99) mg/dL Calcium 8.5 (8.4-10.2) mg/dL
[2022-04-18 11:42] LABS: Glucose,Whole Blood 136 mg/dL (70-110)
--- NOTE | 2022-04-18 11:51 | P.PN ---
Subjective Progress Note Date: 04/18/22 Principal diagnosis: Bilateral pulmonary nodules along with mediastinal mass Right neck lymphadenopathy Progressive weakness with inability to get up and walk around Electrolyte imbalance with hyponatremia and hypokalemia Elevated troponin likely related to demand ischemia Leukocytosis and possibility of postobstructive pneumonia cannot be excluded Mildly elevated liver enzymes Severe morbid obesity Sleep disorder breathing and sleep apnea COPD History of gout Dyslipidemia Hypertension hypertensive cardiovascular disease History of DVT along with prothrombin gene mutation History of abdominal aortic aneurysm 04/18/2022, patient seen [place] examined during the rounds has been on CPAP on 10 L oxygen saturations improved to mid 90s, patient continued to have intermittent episodes of the respiratory decompensation, for now would recommend BiPAP 15/10 at night and high flow oxygen or CPAP with oxygen during the day, also discussed with him about bronchoscopy due to prior difficult bronchoscopy patient doesn't want to undergo bronchoscopy with a high risk of bleeding complication, on the other hand he is on 10 L high flow oxygen with CPAP high risk of respiratory failure and vent requirement, interventional radiology have evaluated the patient and felt that lesions are central however I have emphasized to do a lymph node biopsy on the right neck area 04/16/2022, patient seen blank examined during the rounds using CPAP machine from home breathing comfortably patient has been otherwise 6 L oxygen, intermittent cough is present, patient has received antibiotics in the emergency department we'll continue it will put patient on Rocephin and Flagyl, also put patient on IV steroids consult has been initiated with IR to do a left torn biopsy or lung biopsy, with oncology as well as neurology for evaluation of severe generalized weakness of sudden onset labs pending patient has been initiated on came back from [facility] replacement protocol. Continue to hold Plavix for now for anticipated biopsy early next week Patient is a 76-year-old male with a remote history of smoking, patient has a history of COPD as well as sleep disorder breathing and sleep apnea patient started having some weight loss around 4 weeks ago preliminary workup positive for abnormal chest x-ray eventually underwent computed tomography scan confirmed presence of bilateral pulmonary nodules as well as mediastinal lymphadenopathy one week ago patient developed a lump in the lateral side of the neck since then patient has been progressively weak and short of breath as well he presented to [facility] a few days ago advised to stay in the hospital so that workup including biopsy can be completed but he decided to go home was discharged and biopsies were scheduled on outpatient basis however at home he becomes progressively more week or more short of breath was unable to take care of him because of his size came back into the hospital now being admitted chest x- ray continue show right-sided lung nodule computed tomography scan reviewed again 2 days ago with the presence of bilateral nodules as well as lymphadenopathy in the mediastinal area his recent labs significant for white cell count 11,700 hemoglobin and hematocrit of 13.4 and 40 platelet count of 1 73,000, PT PTT within normal limit, arterial blood gas revealed pH of 7.5 pCO2 30 pO2 of 139 on 50% oxygen, chemistry revealed abnormal electrolytes with sodium 135, potassium 3.3, BUN of 32 creatinine of 1.44, LFT mildly elevated AST/ALT of 82/72 along with alk phos of 254, troponin also mildly elevated 0.79, and BNP is 1620, urinalysis unremarkable patient being admitted into the hospital Objective - Vital Signs Vital signs: Vital Signs Temp 97.9 F 04/18/22 08:00 Pulse 100 04/18/22 11:26 Resp 21 04/18/22 08:00 BP 138/78 04/18/22 08:00 Pulse Ox 91 L 04/18/22 08:00 FiO2 50 04/15/22 10:53 Intake & Output 04/17/22 04/18/22 04/18/22 18:59 06:59 18:59 Intake Total 596 585 120 Output Total 2500 940 400 Balance -5823 -718 -126 Intake: Intake, IV Titration 100 Amount cefTRIAXone 1 gm In 100 Sodium Chloride 0.9% 50 ml @ 100 mls/hr IVPB [facility] Rx#:[id number] Oral 596 485 120 Output: Urine 2500 940 400 Other: Voiding Method Indwelling Catheter - Exam - Constitutional General appearance: disheveled, morbidly obese - EENT Eyes: EOMI, PERRLA Ears: bilateral: normal - Neck Form mass/nodule-like in mid right neck Neck: lymphadenopathy Carotids: bilateral: upstroke normal Thyroid: bilateral: normal size - Respiratory Respiratory: bilateral: diminished - Cardiovascular Rhythm: regular Heart sounds: normal: S1, S2 - Gastrointestinal General gastrointestinal: normal bowel sounds, soft - Integumentary Integumentary: normal turgor - Neurologic Neurologic: CNII-XII intact - Musculoskeletal Musculoskeletal: gait normal, generalized weakness, strength equal bilaterally - Psychiatric Psychiatric: A&O x's 3, appropriate affect, intact judgment & insight - Labs CBC & Chem 7: 04/17/22 09:39 04/17/22 09:39 Labs: Abnormal Lab Results - Last 24 Hours (Table) 04/17/22 04/17/22 04/17/22 Range/Units 11:42 16:44 20:57 POC Glucose (mg/dL) 236 H 206 H 244 H (70-110) mg/dL Hemoglobin A1c (0.0-6.0) % Vitamin B12 (200.0-944.0) pg/mL 04/18/22 04/18/22 04/18/22 Range/Units 06:19 06:50 06:50 POC Glucose (mg/dL) 153 H (70-110) mg/dL Hemoglobin A1c 7.1 H (0.0-6.0) % Vitamin B12 1389.0 H (200.0-944.0) pg/mL 04/18/22 Range/Units 11:40 POC Glucose (mg/dL) 136 H (70-110) mg/dL Hemoglobin A1c (0.0-6.0) % Vitamin B12 (200.0-944.0) pg/mL Assessment and Plan Assessment: Bilateral pulmonary nodules along with mediastinal mass Right neck lymphadenopathy Progressive weakness with inability to get up and walk around Electrolyte imbalance with hyponatremia and hypokalemia Elevated troponin likely related to demand ischemia Leukocytosis and possibility of postobstructive pneumonia cannot be excluded Mildly elevated liver enzymes Severe morbid obesity Sleep disorder breathing and sleep apnea COPD History of gout Dyslipidemia Hypertension hypertensive cardiovascular disease History of DVT along with prothrombin gene mutation History of abdominal aortic aneurysm Plan: Gentle rehydration Replace electrolytes Broad-spectrum antibiotics with Rocephin and Flagyl IV steroids BiPAP 15/10 with oxygen to keep saturation over 92% at night and daytime high flow oxygen or CPAP with oxygen Protection magnesium and phosphorus replacement protocol Consult neurology for severe progressive weakness and evaluation for paraneoplastic syndrome Consult oncology for neoplasm/lung masses/lymphadenopathy Consult interventional radiology for biopsy of neck mass Further plan of care as per clinical response of the patient Time with Patient: Greater than 30
--- NOTE | 2022-04-18 12:50 | P.PN ---
Subjective Patient is a pleasant 76-year-old male with a history of prior tobacco abuse, COPD, obstructive sleep apnea, CAD status post PCI approximately 2013 per patient, PAD status post peripheral stenting, arthritis, CKD. He presented approximately a week ago and had undergone workup for lymphadenopathy however have left AMA. He then presented with continued weakness. He states weakness has been ongoing and progressive over a year where he has intermittently been using wheelchair however more significant in the last few months and especially the last few weeks. He has been mainly describing left lower extremity weakness as well as left upper extremity shoulder weakness. The lower extremity appears more significant at times he will feel his legs giving out from under him. He denies any actual lightheadedness or dizziness or syncope. He denies any chest pain or pressure. He admits he is very concerned regarding losing his mobility. If he does too much he will get short of breath however usually will get weak before he is able to do that much activity. EKG shows normal sinus rhythm, first-degree AV block, Q waves inferiorly with n onspecific minimal 0.5 mm J point elevation in the inferior and lateral leads as well as PVCs. Blood work shows white blood cell count 11.1, hemoglobin 12.7, sodium 136, 1.4 down to 1.3 with a baseline 1.3-1.4. AST 82, ALT 72, alk phos 254, troponin 0.07, 0.08, proBNP 1620. 04/18/2022 Patient seen and examined. Patient main complaint this morning his generalized pain and pain in his back. Denies any chest pain or pressure. 2D echo pending. PHYSICAL EXAMINATION Vital signs reviewed. CONSTITUTIONAL: No apparent distress, obese, chronically ill appearing HEENT: Mucous membranes of the mouth are moist. No JVD. CHEST EXAMINATION: Lungs are clear to auscultation. No chest wall tenderness is noted on palpation or with deep breathing. HEART EXAMINATION: Regular rate and rhythm. S1, S2 heard. No murmurs, gallops or rub. ABDOMEN: Soft, nontender. Positive bowel sounds. EXTREMITIES: 2+ peripheral pulses, no lower extremity edema and no calf tenderness. NEUROLOGIC EXAMINATION: Patient is awake, alert and oriented x3. ASSESSMENT Elevated troponins, suspect chronically elevated secondary to chronic kidney disease. No significant angina-type symptoms Falls and debility appears mainly related to left lower extremity weakness. No significant lightheadedness or syncope Mediastinal lymphadenopathy concerning for malignancy Hypertension COPD exacerbation PAD with prior history of endovascular treatment CAD with prior PCI Acute on chronic kidney disease Left upper and left lower extremity weakness Remote tobacco abuse Elevated liver enzymes Leukocytosis PLAN Patient has been very concerned regarding decreased mobility and left lower extremity weakness which has been somewhat progressive. Additionally patient has lymphadenopathy and concern of lung mass with possible cancer. Awaiting possible biopsy. Awaiting 2-D echo. No significant signs of acute coronary syndrome with elevated troponins likely chronically elevated secondary to CKD. Neurology and Oncology following If echocardiogram with no acute findings, no further inpatient workup at this time for elevated troponin Nurse practitioner note has been reviewed by physician. Signing provider agrees with the documented findings, assessment, and plan of care. Objective - Vital Signs Vital signs: Vital Signs Temp 97.9 F 04/18/22 08:00 Pulse 92 04/18/22 08:01 Resp 21 04/18/22 08:00 BP 138/78 04/18/22 08:00 Pulse Ox 91 L 04/18/22 08:00 FiO2 50 04/15/22 10:53 Intake & Output 04/17/22 04/18/22 04/18/22 18:59 06:59 18:59 Intake Total 596 585 120 Output Total 2500 940 400 Balance -0632 -300 -016 Intake: Intake, IV Titration 100 Amount cefTRIAXone 1 gm In 100 Sodium Chloride 0.9% 50 ml @ 100 mls/hr IVPB [facility] Rx#:[id number] Oral 596 485 120 Output: Urine 2500 940 400 Other: Voiding Method Indwelling Catheter - Labs CBC & Chem 7: 04/17/22 09:39 04/17/22 09:39 Labs: Abnormal Lab Results - Last 24 Hours (Table) 04/17/22 04/17/22 04/17/22 Range/Units 09:39 11:42 16:44 BUN 32 H (9-20) mg/dL Creatinine 1.30 H (0.66-1.25) mg/dL Glucose 179 H (74-99) mg/dL POC Glucose (mg/dL) 236 H 206 H (70-110) mg/dL 04/17/22 04/18/22 Range/Units 20:57 06:19 BUN (9-20) mg/dL Creatinine (0.66-1.25) mg/dL Glucose (74-99) mg/dL POC Glucose (mg/dL) 244 H 153 H (70-110) mg/dL
[2022-04-18] MEDS: LORazepam 0.5 MG TAB PO PRN ×2 (14:27→20:46)
[2022-04-18 16:21] LABS: Glucose,Whole Blood 169 mg/dL (70-110)
--- NOTE | 2022-04-18 17:36 | P.PN ---
Progress Note - Text Progress Note Date: 04/18/22 Chief Complaint: Weak and tired This is a 76-year-old patient who follows with Dr. Stepan Moyer. Patient was just admitted to the hospital on April 11 was found to be in COPD exacerbation. That time computed tomography scan of the chest did show some pulmonary nodules. Patient has not been eating well. Weak and tired. Legs feeling very weak. PE was ruled out with CT angiogram. Also lymph nodes were found. Emphysema changes. Patient had left the hospital prematurely. Patient had been also diagnosed with diastolic CHF, GERD, CAD with stent, hyperlipidemia, fatty liver, diabetes type 2. Patient was seen by Dr. Ruthann Smith from pulmonary. Patient was supposed to follow with him in the office Patient now returns to the hospital feeling very weak. Poor appetite. Only drinking water. Barely able to walk. Has congested cough. Has been a smoker. No chest pain. Feels rundown. No fever no chills Admitted with acute medical asthenia, COPD exacerbation, possible pneumonia April 16: On BiPAP. Tired. Decreased oral intake. DuoNeb, IV ceftriaxone, steroids April 17: Sitting up in a chair. Some shortness of breath. Discussed at length about tissue diagnosis. He will discuss with pulmonary. Eating about 75%. Using CPAP April 18: Sitting up in a chair. On CPAP with -15 of oxygen. Discussed with the nurse not eating much. Tired. Patient has several questions about his biopsy. Discussed at length spoke about several hypothetical situations that he wanted know about. Also discussed with Dr. Diop from pulmonary. Patient is already status and high oxygen is a concern. Even if biopsy shows treatable malignancy has poor functional status would interfere with any treatment at this point. "Biopsy of the neck has been ordered with interventional radiology. Also spoke to patient's on the phone as after discussed patient's clinical situation with the patient he was disturbed about possible unpleasant consequences of cancer if that was confirmed. CODE STATUS discussed with the patient. DO NOT RESUSCITATE Active Medications Acetaminophen (Acetaminophen Tab 325 Mg Tab) 650 mg PO Q6HR PRN PRN Reason: Mild Pain or Fever > 100.5 Last Admin: 04/18/22 16:59 Dose: 650 mg Albuterol/Ipratropium (Ipratropium-Albuterol 3 Ml Neb) 3 ml INHALATION RT-Q4H [facility] Last Admin: 04/18/22 15:09 Dose: 3 ml Allopurinol (Allopurinol 300 Mg Tab) 300 mg PO HS [facility] Last Admin: 04/17/22 20:57 Dose: 300 mg Budesonide (Budesonide 0.5 Mg/2 Ml Nebu) 0.5 mg INHALATION RT-BID [facility] Last Admin: 04/18/22 07:37 Dose: 0.5 mg Calcitriol (Calcitriol 0.25 Mcg Cap) 0.25 mcg PO MOWEFR [facility] Last Admin: 04/18/22 14:27 Dose: 0.25 mcg Calcium Carbonate/Glycine (Calcium Carbonate 500 Mg Chewable) 1,000 mg PO Q4HR PRN PRN Reason: Dyspepsia Cyanocobalamin (Cyanocobalamin 500 Mcg Tab) 1,000 mcg PO DAILY [facility] Cyclosporine (Cyclosporine 0.05% Ophth 0.4 Ml Droperette) 1 drops BOTH EYES BID [facility] Last Admin: 04/18/22 09:50 Dose: 1 drops Dextrose/Water (Dextrose 50% Syringe 50 Ml) 25 ml IVP PER PROTOCOL PRN; Jos col PRN Reason: Hypoglycemia Dextrose/Water (Dextrose 50% Syringe 50 Ml) 50 ml IVP PER PROTOCOL PRN; Protocol PRN Reason: Hypoglycemia Ezetimibe (Ezetimibe 10 Mg Tab) 10 mg PO [facility] Last Admin: 04/17/22 20:57 Dose: 10 mg Enoxaparin Sodium (Enoxaparin 30 Mg/0.3 Ml Syringe) 30 mg SQ Q12HR [facility] Last Admin: 04/18/22 09:49 Dose: 30 mg Folic Acid (Folic Acid 1 Mg Tab) 1 mg PO DAILY [facility] Last Admin: 04/18/22 09:49 Dose: 1 mg Gabapentin (Gabapentin 300 Mg Cap) 300 mg PO TID [facility] Last Admin: 04/18/22 16:59 Dose: 300 mg Sodium Chloride (Saline 0.9%) 1,000 mls @ 75 mls/hr IV .[id number] [facility] Last Admin: 04/18/22 09:51 Dose: Not Given Ceftriaxone Sodium 1 gm/ (Sodium Chloride) 50 mls @ 100 mls/hr IVPB [facility]; Protocol Last Admin: 04/17/22 20:56 Dose: 100 mls/hr Insulin Aspart (Insulin Aspart (Novolog) 100 Unit/Ml Vial) 0 unit SQ ACHS [facility]; Protocol Last Admin: 04/18/22 17:00 Dose: 2 unit Isosorbide Mononitrate (Isosorbide Mononitrate Er 30 Mg Tab.Er.24h) 30 mg PO DA LEE [facility] Last Admin: 04/18/22 09:49 Dose: 30 mg Lactulose (Lactulose 20 Gm/30 Ml Cup) 20 gm PO DAILY PRN PRN Reason: Constipation Lorazepam (Lorazepam 0.5 Mg Tab) 0.5 mg PO Q6HR PRN PRN Reason: Anxiety Last Admin: 04/18/22 14:27 Dose: 0.5 mg Methylprednisolone Sodium Succinate (Methylprednisolone Sod Succi 40 Mg/Ml 1 Ml Vial) 40 mg IV Q8HR [facility] Last Admin: 04/18/22 17:00 Dose: 40 mg Metoprolol Tartrate (Metoprolol Tartrate 12.5 Mg Tab) 12.5 mg PO BID [facility] Last Admin: 04/18/22 09:49 Dose: 12.5 mg Metronidazole (Metronidazole 500 Mg Tab) 500 mg PO TID [facility]; Protocol Last Admin: 04/18/22 17:00 Dose: 500 mg Miscellaneous Information (Potassium Replacement Protocol 1 Each Misc) 1 each MISCELLANE DAILY PRN; Protocol PRN Reason: Per Protocol Montelukast Sodium (Montelukast 10 Mg Tab) 10 mg PO HS [facility] Last Admin: 04/17/22 20:58 Dose: 10 mg Naloxone HCl (Naloxone 0.4 Mg/Ml 1 Ml Vial) 0.2 mg IV Q2M PRN PRN Reason: Opioid Reversal Nicotine (Nicotine 14mg/24hr Patch) 1 patch TRANSDERM DAILY [facility] Last Admin: 04/18/22 09:49 Dose: 1 patch Ondansetron HCl (Ondansetron 4 Mg/2 Ml Vial) 4 mg IVP Q8HR PRN PRN Reason: Nausea And Vomiting Pantoprazole Sodium (Pantoprazole 40 Mg Tablet) 40 mg PO BID@0730,1730 [facility] Last Admin: 04/18/22 16:59 Dose: 40 mg Potassium Chloride (Potassium Chloride Er 20 Meq Tab.Er) 20 meq PO BID [facility] Last Admin: 04/18/22 09:49 Dose: 20 meq Prednisolone Acetate (Prednisolone Acetate 1% Ophth Drops 5 Ml Btl) 1 drops LEFT EYE BID [facility] Last Admin: 04/18/22 09:50 Dose: 1 drops Torsemide (Torsemide 20 Mg Tab) 20 mg PO DAILY [facility] Last Admin: 04/18/22 09:49 Dose: 20 mg Tramadol HCl (Tramadol 50 Mg Tab) 50 mg PO Q8H PRN PRN Reason: Pain Last Admin: 04/17/22 20:57 Dose: 50 mg Past medical history to include: COPD, pulmonary nodule workup in place, abdominal aortic aneurysm with stent, CHF diastolic, GERD, CAD with stent, obesity with sleep apnea, hyperlipidemia, fatty liver, diabetes type 2 Social history: . Smoked 2 packs a day for most of his life. Now down to half a pack a day.. No alcohol Family history: Reviewed, noncontributory to presentation Physical examination: VITAL SIGNS: 97.8, 18, 22, 108/76, 91% on 15 L GENERAL: Up in chair, short of breath with CPAP EYES: Pupils equal. Conjunctiva normal. HEENT: External appearance of nose and ears normal, oral cavity grossly normal. NECK: JVD unable to assess; masses not palpable. HEART: First and second heart sounds are normal; some edema. LUNGS: Respiratory rate increased,; diminished breath sounds prolonged expiration and wheezing. ABDOMEN: Soft, nontender, liver spleen not palpable, no masses palpable. PSYCH: Alert and oriented x3; mood and affect anxious MUSCULOSKELETAL:No Clubbing/cyanosis;muscles-grossly intact, evidence of OA INVESTIGATIONS, reviewed in the clinical context: April 17: White count 15.1 hemoglobin 13.1 percussion 4.2 creatinine 1.3 April 16: White count 11.1 hemoglobin 12.7 platelets 127 potassium 3.5 BUN 28 creatinine 1.35 White count 11.7 hemoglobin 13.4 platelets 173 ABG: PH 7.5 pCO2 30 pO2 139 sodium 135 potassium 3.3 BUN 32 creatinine 1.44 Troponin I 0.076, 80 AST 82 ALT 72 UA trace protein EKG tracing personally reviewed by me-PVCs. Heart rate 110. No specific ST segment changes Chest x-ray film personally reviewed by [id number] possible mass some patchy basilar opacities. Previous testing: Creatinine 1.5 on July 2021 Chest CTA: Pulmonary nodules in the right upper lobe and left lower lobe and right pulmonary hilum and mediastinal lymphadenopathy, or indeterminate right internal no deal 1.8 cm. Hepatic steatosis. Hyperinflation. Assessment and plan: -Acute COPD exacerbation in a current smoker: Slow to respond DuoNeb every 4. Nebulized Pulmicort -Acute hypoxic respiratory failure: Slow to respond On CPAP 15 L -Suspected metastatic malignancy Being followed by pulmonary and oncology. Pending biopsy by IR -Possible postobstructive pneumonia: Slow to respond IV ceftriaxone -Chronic nicotine dependence, cigarette smoker Nicotine patch -Diabetes mellitus type 2 on oral hypoglycemic Accu-Chek and sliding scale. 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 No ACS fitness consultant -CAD with stent Plavix Lopressor -DO NOT RESUSCITATE DuoNeb. Nebulized and IV steroids. IV ceftriaxone. BiPAP.. Discussed with patient and pulmonary. updated. See above. Advanced care planning: Discussed patient's condition at length with the patient. Patient is rather clear that he does not want to be low ventilator. He does take his decisions. Late in the day I did speak to patient's on the phone expressed patient's wishes. Patient will be DO NOT RESUSCITATE as per patient's wishes. On his being placed for the same. Questions answered both the patient and the . Time spent about 25 minutes
--- NOTE | 2022-04-18 18:12 | P.PN ---
Subjective Progress Note Date: 04/18/22 Principal diagnosis: COPD exacerbation In follow-up today patient continues to have shortness of breath with exertion and speaking. He is anxious now, wants to get a biopsy to find out "what's going on". Objective - Vital Signs Vital signs: Vital Signs Temp 97.9 F 04/18/22 08:00 Pulse 92 04/18/22 08:01 Resp 21 04/18/22 08:00 BP 138/78 04/18/22 08:00 Pulse Ox 91 L 04/18/22 08:00 FiO2 50 04/15/22 10:53 Intake & Output 04/17/22 04/18/22 04/18/22 18:59 06:59 18:59 Intake Total 596 585 120 Output Total 2500 940 400 Balance -1598 -194 -890 Intake: Intake, IV Titration 100 Amount cefTRIAXone 1 gm In 100 Sodium Chloride 0.9% 50 ml @ 100 mls/hr IVPB HS [facility] Rx#:[id number] Oral 596 485 120 Output: Urine 2500 940 400 Other: Voiding Method Indwelling Catheter - Constitutional General appearance: Present: cooperative, mild distress, obese - EENT Eyes: Present: anicteric sclerae, EOMI ENT: Present: hard of hearing, normal oropharynx - Neck Neck: Present: lymphadenopathy - Respiratory Respiratory: bilateral: diminished, rhonchi - Cardiovascular Rhythm: regular Heart sounds: normal: S1, S2 Abnormal Heart Sounds: Absent: systolic murmur, diastolic murmur, rub, S3 Gallop, S4 Gallop, click, other - Peripheral edema leg Peripheral Edema: bilateral: Trace - Gastrointestinal General gastrointestinal: Present: normal bowel sounds, soft - Integumentary Integumentary: Present: flushed - Neurologic Neurologic: Present: CNII-XII intact (grossly) - Musculoskeletal Musculoskeletal: Present: generalized weakness - Psychiatric Psychiatric: Present: A&O x's 3, appropriate affect, intact judgment & insight - Labs CBC & Chem 7: 04/17/22 09:39 04/17/22 09:39 Labs: Abnormal Lab Results - Last 24 Hours (Table) 04/17/22 04/17/22 04/17/22 Range/Units 11:42 16:44 20:57 POC Glucose (mg/dL) 236 H 206 H 244 H (70-110) mg/dL 04/18/22 Range/Units 06:19 POC Glucose (mg/dL) 153 H (70-110) mg/dL - Imaging and Cardiology CT scan - chest: report reviewed Assessment and Plan (1) Respiratory failure with hypoxia Current Visit: Yes Status: Acute Priority: High Code(s): J96.91 - RESPIRATORY FAILURE, UNSPECIFIED WITH HYPOXIA SNOMED Code(s): 88049876660026703 (2) Lymphadenopathy Current Visit: Yes Status: Acute Priority: High Code(s): R59.1 - GENERALIZED ENLARGED LYMPH NODES SNOMED Code(s): 75140320 (3) Lung nodules Current Visit: Yes Status: Acute Priority: High Code(s): R91.8 - OTHER NONSPECIFIC ABNORMAL FINDING OF LUNG FIELD SNOMED Code(s): 594808354 Plan: Chart reviewed. Pulmonary has already requested Interventional Radiology to do a right cervical lymph node biopsy. Have changed that to a core biopsy, please. CT of the abdomen and pelvis once patient is more stable from a pulmonary standpoint, that he can tolerate laying for the images Doctor attests: I performed a history and physical examination of this patient, developed impression and plan of care. Discussed with dictator. I agree with dictators note, documented as a scribe.
[2022-04-18 20:40] LABS: Glucose,Whole Blood 195 mg/dL (70-110)
[2022-04-18] MEDS: allopurinoL 300 MG TAB PO SCH (20:46)
[2022-04-18] MEDS: EZETIMIBE 10 MG TAB PO SCH (20:46)
[2022-04-18] MEDS: MONTELUKAST 10 MG TAB PO SCH (20:46)
[2022-04-18] MEDS: traMADol 50 MG TAB PO PRN (20:47)
[2022-04-19] MEDS: IPRATROPIUM-ALBUTEROL 3 ML NEB INHALATION SCH ×5 (03:16→19:43)
[2022-04-19 06:17] LABS: Glucose,Whole Blood 186 mg/dL (70-110)
[2022-04-19] MEDS: PANTOPRAZOLE 40 MG TABLET PO SCH ×2 (06:51→17:21)
[2022-04-19] MEDS: INSULIN ASPART (NovoLOG) 100 UNIT/ML VIAL SQ SCH ×4 (06:52→21:11)
[2022-04-19] MEDS: metroNIDAZOLE 500 MG TAB PO SCH ×3 (09:03→21:12)
[2022-04-19] MEDS: ISOSORBIDE MONONITRATE ER 30 MG TAB.ER.24H PO SCH (09:03)
[2022-04-19] MEDS: FOLIC ACID 1 MG TAB PO SCH (09:03)
[2022-04-19] MEDS: METOPROLOL TARTRATE 12.5 MG TAB PO SCH (09:03)
[2022-04-19] MEDS: CYANOCOBALAMIN 500 MCG TAB PO SCH (09:03)
[2022-04-19] MEDS: cycloSPORINE 0.05% OPHTH 0.4 ML DROPERETTE BOTH EYES SCH ×2 (09:03→23:10)
[2022-04-19] MEDS: NICOTINE 14MG/24HR PATCH TRANSDERM SCH (09:03)
[2022-04-19] MEDS: methylPREDNISolone SOD SUCCI 40 MG/ML 1 ML VIAL IV SCH ×2 (09:04→15:52)
[2022-04-19] MEDS: POTASSIUM CHLORIDE ER 20 MEQ TAB.ER PO SCH ×2 (09:04→21:12)
[2022-04-19] MEDS: prednisoLONE ACETATE 1% OPHTH DROPS 5 ML BTL LEFT EYE SCH ×2 (09:04→21:13)
[2022-04-19] MEDS: GABAPENTIN 300 MG CAP PO SCH ×3 (09:04→21:13)
[2022-04-19] MEDS: TORSEMIDE 20 MG TAB PO SCH (09:05)
[2022-04-19] MEDS: BUDESONIDE 0.5 MG/2 ML NEBU INHALATION SCH ×2 (09:28→19:43)
--- NOTE | 2022-04-19 10:17 | US ---
EXAMINATION TYPE: US thyroid st tissue head/neck DATE OF EXAM: 04/19/2022 COMPARISON: NONE CLINICAL HISTORY: lymphadenopathy. Palpable lump right lateral neck Limited scanning was performed at the site of clinical abnormality. Right lateral neck scanned in area of pt's palpable lump- solid, hypoechoic lesion right lateral ne ck just below ear= 1.7 x 1.8 cm AP measurement IMPRESSION: Suspicious lesion consistent with probable adenopathy in the area of clinical ending just below the r ight ear
[2022-04-19] MEDS: ENOXAPARIN 30 MG/0.3 ML SYRINGE SQ SCH ×2 (10:38→21:10)
[2022-04-19] MEDS: SODIUM CHLORIDE 0.9% 1,000 ML IV SCH (10:39)
--- NOTE | 2022-04-19 11:27 | P.PN ---
Subjective Patient is a pleasant 76-year-old male with a history of prior tobacco abuse, COPD, obstructive sleep apnea, CAD status post PCI approximately 2013 per patient, PAD status post peripheral stenting, arthritis, CKD. He presented approximately a week ago and had undergone workup for lymphadenopathy however have left AMA. He then presented with continued weakness. He states weakness has been ongoing and progressive over a year where he has intermittently been using wheelchair however more significant in the last few months and especially the last few weeks. He has been mainly describing left lower extremity weakness as well as left upper extremity shoulder weakness. The lower extremity appears more significant at times he will feel his legs giving out from under him. He denies any actual lightheadedness or dizziness or syncope. He denies any chest pain or pressure. He admits he is very concerned regarding losing his mobility. If he does too much he will get short of breath however usually will get weak before he is able to do that much activity. EKG shows normal sinus rhythm, first-degree AV block, Q waves inferiorly with n onspecific minimal 0.5 mm J point elevation in the inferior and lateral leads as well as PVCs. Blood work shows white blood cell count 11.1, hemoglobin 12.7, sodium 136, 1.4 down to 1.3 with a baseline 1.3-1.4. AST 82, ALT 72, alk phos 254, troponin 0.07, 0.08, proBNP 1620. 04/19/2022 Patient seen and examined.More confused this morning. Patient main complaint this morning his generalized pain and pain in his back. Denies any chest pain or pressure. 2D echo pending. BP is stable. Patient is tachycardic, in sinus mechanism. PHYSICAL EXAMINATION Vital signs reviewed. CONSTITUTIONAL: No apparent distress, obese, chronically ill appearing HEENT: Mucous membranes of the mouth are moist. No JVD. CHEST EXAMINATION: Lungs are diminished bilaterally to auscultation. No chest wall tenderness is noted on palpation or with deep breathing. HEART EXAMINATION: Regular rate and rhythm. S1, S2 heard. No murmurs, gallops or rub. ABDOMEN: Soft, nontender. Positive bowel sounds. EXTREMITIES: 2+ peripheral pulses, no lower extremity edema and no calf tenderness. NEUROLOGIC EXAMINATION: Patient is awake, alert, confused on medical situation. ASSESSMENT Elevated troponins, suspect chronically elevated secondary to chronic kidney disease. No significant angina-type symptoms, EKG with no evidence of ischemia. Falls and debility appears mainly related to left lower extremity weakness. No significant lightheadedness or syncope Mediastinal lymphadenopathy concerning for malignancy Hypertension COPD exacerbation PAD with prior history of endovascular treatment CAD with prior PCI Acute on chronic kidney disease Left upper and left lower extremity weakness Remote tobacco abuse Elevated liver enzymes Leukocytosis PLAN Preliminary echocardiogram revealed EF 50-55%, Lumason used very technically difficult study. Valves not well visualized. Patient has been very concerned regarding decreased mobility and left lower extremity weakness which has been somewhat progressive. Additionally patient has lymphadenopathy and concern of lung mass with possible cancer. Awaiting possible biopsy. Increase metoprolol 25mg BID No significant signs of acute coronary syndrome with elevated troponins likely chronically elevated secondary to CKD. Neurology and Oncology following No further inpatient workup at this time for elevated troponin Nurse practitioner note has been reviewed by physician. Signing provider agrees with the documented findings, assessment, and plan of care. Objective - Vital Signs Vital signs: Vital Signs Temp 98.2 F 04/19/22 08:00 Pulse 124 H 04/19/22 08:00 Resp 22 04/19/22 08:00 BP 115/76 04/19/22 08:00 Pulse Ox 92 L 04/19/22 09:30 FiO2 100 04/18/22 15:49 Intake & Output 04/18/22 04/19/22 04/19/22 18:59 06:59 18:59 Intake Total 120 98 120 Output Total 2425 1300 900 Balance -9390 -2518 -897 Intake: Intake, IV Titration 50 Amount cefTRIAXone 1 gm In 50 Sodium Chloride 0.9% 50 ml @ 100 mls/hr IVPB [facility] Rx#:[id number] Oral 120 48 120 Output: Urine 2425 1300 900 Other: Voiding Method Indwelling Catheter Indwelling Catheter Indwelling Catheter - Labs CBC & Chem 7: 04/17/22 09:39 04/17/22 09:39 Labs: Abnormal Lab Results - Last 24 Hours (Table) 04/18/22 04/18/22 04/18/22 Range/Units 06:50 11:40 16:20 POC Glucose (mg/dL) 136 H 169 H (70-110) mg/dL Vitamin B12 1389.0 H (200.0-944.0) pg/mL 04/18/22 04/19/22 Range/Units 20:30 06:15 POC Glucose (mg/dL) 195 H 186 H (70-110) mg/dL Vitamin B12 (200.0-944.0) pg/mL
[2022-04-19] MEDS ORDERED: METOPROLOL TARTRATE 12.5 MG TAB PO STA (11:29)
[2022-04-19 11:33] LABS: Glucose,Whole Blood 180 mg/dL (70-110)
[2022-04-19 12:19] LABS: ABG Base Excess -0.8 mmol/L; ABG HCO3 22 mmol/L (21-25); ABG Oxygen Saturation 92.9 % (94-97); ABG PCO2 28 mmHg (35-45); ABG PO2 64 mmHg (83-108); ABG TCO2 23 mmol/L (19-24); Allen Test Performed? Yes
[2022-04-19] MEDS: LORazepam 0.5 MG TAB PO PRN (12:39)
--- NOTE | 2022-04-19 14:19 | P.PN ---
Subjective Progress Note Date: 04/19/22 Principal diagnosis: COPD exacerbation, lungs/neck mass. In follow-up today patient continues to have shortness of breath with exertion and speaking. Patient is confused per nursing, he is confusing procedures/testing and not able to keep time line of events in order. He says no when asked if in any pain. he is telling me today that he had a PET scan at [facility] recently. Objective - Vital Signs Vital signs: Vital Signs Temp 98.2 F 04/19/22 08:00 Pulse 124 H 04/19/22 08:00 Resp 22 04/19/22 08:00 BP 115/76 04/19/22 08:00 Pulse Ox 92 L 04/19/22 09:30 FiO2 100 04/18/22 15:49 Intake & Output 04/18/22 04/19/22 04/19/22 18:59 06:59 18:59 Intake Total 120 98 120 Output Total 2425 1300 1500 Balance -3366 -0438 -5251 Intake: Intake, IV Titration 50 Amount cefTRIAXone 1 gm In 50 Sodium Chloride 0.9% 50 ml @ 100 mls/hr IVPB [facility] Rx#:[id number] Oral 120 48 120 Output: Urine 2425 1300 1500 Other: Voiding Method Indwelling Catheter Indwelling Catheter Indwelling Catheter - Constitutional General appearance: Present: cooperative, mild distress, morbidly obese - EENT Eyes: Present: anicteric sclerae, EOMI ENT: Present: hearing grossly normal - Neck Neck: Present: lymphadenopathy (posterior to the mandible angle on the right) - Respiratory Respiratory: bilateral: diminished - Peripheral edema leg Peripheral Edema: bilateral: Trace - Neurologic Neurologic: Present: CNII-XII intact (grossly) - Musculoskeletal Musculoskeletal: Present: generalized weakness - Psychiatric Psychiatric Comment(s): alert and oriented to self and place - Allied health notes Allied health notes reviewed: nursing - Labs CBC & Chem 7: 04/17/22 09:39 04/17/22 09:39 Labs: Abnormal Lab Results - Last 24 Hours (Table) 04/18/22 04/18/22 04/19/22 Range/Units 16:20 20:30 06:15 ABG pH (7.35-7.45) ABG pCO2 (35-45) mmHg ABG pO2 (83-108) mmHg ABG O2 Saturation (94-97) % POC Glucose (mg/dL) 169 H 195 H 186 H (70-110) mg/dL 04/19/22 04/19/22 Range/Units 11:32 12:12 ABG pH 7.50 H (7.35-7.45) ABG pCO2 28 L (35-45) mmHg ABG pO2 64 L (83-108) mmHg ABG O2 Saturation 92.9 L (94-97) % POC Glucose (mg/dL) 180 H (70-110) mg/dL Assessment and Plan (1) Respiratory failure with hypoxia Current Visit: Yes Status: Acute Priority: High Code(s): J96.91 - RESPIRATORY FAILURE, UNSPECIFIED WITH HYPOXIA SNOMED Code(s): 11143441448960952 (2) Lymphadenopathy Current Visit: Yes Status: Acute Priority: High Code(s): R59.1 - GENERALIZED ENLARGED LYMPH NODES SNOMED Code(s): 95337964 (3) Lung nodules Current Visit: Yes Status: Acute Priority: High Code(s): R91.8 - OTHER NONSPECIFIC ABNORMAL FINDING OF LUNG FIELD SNOMED Code(s): 127853564 Plan: Chart reviewed. discussed case with IR via Rad RN. Dany wang of the right neck ordered to further assess the lymphadenopathy for core biopsy. Pending IR review of the case Patient states that he had a recent PET scan at [facility]. Will check there to see if this has been done. If it has, may not need the CT AP. If it has not, CT AP will be ordered once patient is more stable respiratory- skelton as well as cognitively. Time with Patient: Greater than 30
[2022-04-19 16:23] LABS: Glucose,Whole Blood 203 mg/dL (70-110)
--- NOTE | 2022-04-19 17:36 | P.PN ---
Subjective Progress Note Date: 04/19/22 I am seeing the patient for the first time during this hospital visit. Please refer to Dr. Bolanos's note for further details. Per the nurse, he is getting work-up to rule out lung mass and they think possibly he has mets. Oncology on board. His oxygen staturation was as low as in 60's and per nurse he was confused earlier but better on non-rebreather. Objective - Vital Signs Vital signs: Vital Signs Temp 98.3 F 04/19/22 16:00 Pulse 110 H 04/19/22 16:00 Resp 26 H 04/19/22 16:00 BP 148/94 04/19/22 16:00 Pulse Ox 94 L 04/19/22 16:00 FiO2 100 04/18/22 15:49 Intake & Output 04/18/22 04/19/22 04/19/22 18:59 06:59 18:59 Intake Total 120 98 120 Output Total 2425 1300 1500 Balance -2129 -3702 -3346 Intake: Intake, IV Titration 50 Amount cefTRIAXone 1 gm In 50 Sodium Chloride 0.9% 50 ml @ 100 mls/hr IVPB [facility] Rx#:[id number] Oral 120 48 120 Output: Urine 2425 1300 1500 Other: Voiding Method Indwelling Catheter Indwelling Catheter Indwelling Catheter - Exam General: Is not in acute distress Lung: Has nonrebreather Patient is awake, alert, oriented to self and correctly stated the year. He does not know place. He is following simple commands. Pupils are round, equal and reactive to light. VFF to confrontation throughout. EOM intact and no nystagmus. No facial weakness. No dysarthria. Is very hard of hearing bilaterally. Motor: Strength: Is moving all extremities above gravity without difficulty. Cerebellar: Normal finger to nose. - Labs CBC & Chem 7: 04/17/22 09:39 04/17/22 09:39 Labs: Abnormal Lab Results - Last 24 Hours (Table) 04/18/22 04/19/22 04/19/22 Range/Units 20:30 06:15 11:32 ABG pH (7.35-7.45) ABG pCO2 (35-45) mmHg ABG pO2 (83-108) mmHg ABG O2 Saturation (94-97) % POC Glucose (mg/dL) 195 H 186 H 180 H (70-110) mg/dL 04/19/22 04/19/22 Range/Units 12:12 16:21 ABG pH 7.50 H (7.35-7.45) ABG pCO2 28 L (35-45) mmHg ABG pO2 64 L (83-108) mmHg ABG O2 Saturation 92.9 L (94-97) % POC Glucose (mg/dL) 203 H (70-110) mg/dL Assessment and Plan Assessment: * Hypoxic encephalopathy---improving * Subjective weakness, with frequent falls for the last 2 weeks. His muscle strength is very normal. Patient does have history of diabetic neuropathy. * Bilateral pulmonary nodule along medistainal mass with right neck lymphadeonopathy: rule out metastatic disease. * Peripheral neuropathy * Carpal tunnel syndrome * Mild renal insufficiency * Elevated liver enzymes * Chronic tobacco use * Diabetes * Obesity Plan: * Oncology and Pulmonary on board and pending IR guided biopsy. If he does have any further weakness and his lung biopsy is positive for cancer then consider differential of paraneoplastic syndrome. * B12: 1389, folate 11.30 hemoglobin A1c 7.1, CK 68, Aldolase * Dr. Bolanos started him on B12, folate replacement (previous history of B12 folate deficiency). * Patient has history of peripheral neuropathy. Consider EMG testing of bila teral lower extremities as outpatient. * PT OT evaluate gait. * Will defer the rest of medical management to the primary team. The plan is discussed with the nurse. Will follow-up sporadically. Samir Morris M.D. Neuro-Hospitalist Time with Patient: Less than 30
--- NOTE | 2022-04-19 17:43 | P.PN ---
Progress Note - Text Progress Note Date: 04/19/22 Chief Complaint: Weak and tired This is a 76-year-old patient who follows with Dr. Stepan Moyer. Patient was just admitted to the hospital on April 11 was found to be in COPD exacerbation. That time computed tomography scan of the chest did show some pulmonary nodules. Patient has not been eating well. Weak and tired. Legs feeling very weak. PE was ruled out with CT angiogram. Also lymph nodes were found. Emphysema changes. Patient had left the hospital prematurely. Patient had been also diagnosed with diastolic CHF, GERD, CAD with stent, hyperlipidemia, fatty liver, diabetes type 2. Patient was seen by Dr. Ruthann Smith from pulmonary. Patient was supposed to follow with him in the office Patient now returns to the hospital feeling very weak. Poor appetite. Only drinking water. Barely able to walk. Has congested cough. Has been a smoker. No chest pain. Feels rundown. No fever no chills Admitted with acute medical asthenia, COPD exacerbation, possible pneumonia April 16: On BiPAP. Tired. Decreased oral intake. DuoNeb, IV ceftriaxone, steroids April 17: Sitting up in a chair. Some shortness of breath. Discussed at length about tissue diagnosis. He will discuss with pulmonary. Eating about 75%. Using CPAP April 18: Sitting up in a chair. On CPAP with -15 of oxygen. Discussed with the nurse not eating much. Tired. Patient has several questions about his biopsy. Discussed at length spoke about several hypothetical situations that he wanted know about. Also discussed with Dr. Diop from pulmonary. Patient is already status and high oxygen is a concern. Even if biopsy shows treatable malignancy has poor functional status would interfere with any treatment at this point. "Biopsy of the neck has been ordered with interventional radiology. Also spoke to patient's on the phone as after discussed patient's clinical situation with the patient he was disturbed about possible unpleasant consequences of cancer if that was confirmed. CODE STATUS discussed with the patient. DO NOT RESUSCITATE April 19: Patient is somewhat confused delirious earlier today. I ordered ABGs showed him to be hypoxic. Earlier he had pulled out his nasal cannula. Nurse informed Dr. Smith from pulmonary. Intervention radiology planning for lymph node biopsy tomorrow. Lovenox discontinued. Patient was reassured. Shortness of breath. Discussed with nurse Active Medications Acetaminophen (Acetaminophen Tab 325 Mg Tab) 650 mg PO Q6HR PRN PRN Reason: Mild Pain or Fever > 100.5 Last Admin: 04/18/22 16:59 Dose: 650 mg Albuterol/Ipratropium (Ipratropium-Albuterol 3 Ml Neb) 3 ml INHALATION RT-Q4H [facility] Last Admin: 04/19/22 15:42 Dose: Not Given Allopurinol (Allopurinol 300 Mg Tab) 300 mg PO HS [facility] Last Admin: 04/18/22 20:46 Dose: 300 mg Budesonide (Budesonide 0.5 Mg/2 Ml Nebu) 0.5 mg INHALATION RT-BID [facility] Last Admin: 04/19/22 09:28 Dose: Not Given Calcitriol (Calcitriol 0.25 Mcg Cap) 0.25 mcg PO MOWEFR [facility] Last Admin: 04/18/22 14:27 Dose: 0.25 mcg Calcium Carbonate/Glycine (Calcium Carbonate 500 Mg Chewable) 1,000 mg PO Q4HR PRN PRN Reason: Dyspepsia Cyanocobalamin (Cyanocobalamin 500 Mcg Tab) 1,000 mcg PO DAILY [facility] Last Admin: 04/19/22 09:03 Dose: 1,000 mcg Cyclosporine (Cyclosporine 0.05% Ophth 0.4 Ml Droperette) 1 drops BOTH EYES BID [facility] Last Admin: 04/19/22 09:03 Dose: 1 drops Dextrose/Water (Dextrose 50% Syringe 50 Ml) 25 ml IVP PER PROTOCOL PRN; Pr otocol PRN Reason: Hypoglycemia Dextrose/Water (Dextrose 50% Syringe 50 Ml) 50 ml IVP PER PROTOCOL PRN; Protocol PRN Reason: Hypoglycemia Ezetimibe (Ezetimibe 10 Mg Tab) 10 mg PO [facility] Last Admin: 04/18/22 20:46 Dose: 10 mg Enoxaparin Sodium (Enoxaparin 30 Mg/0.3 Ml Syringe) 30 mg SQ Q12HR [facility] Last Admin: 04/19/22 10:38 Dose: Not Given Folic Acid (Folic Acid 1 Mg Tab) 1 mg PO DAILY [facility] Last Admin: 04/19/22 09:03 Dose: 1 mg Gabapentin (Gabapentin 300 Mg Cap) 300 mg PO TID [facility] Last Admin: 04/19/22 15:52 Dose: 300 mg Sodium Chloride (Saline 0.9%) 1,000 mls @ 75 mls/hr IV .[id number] [facility] Last Admin: 04/19/22 10:39 Dose: Not Given Ceftriaxone Sodium 1 gm/ (Sodium Chloride) 50 mls @ 100 mls/hr IVPB [facility]; Protocol Last Admin: 04/18/22 20:49 Dose: 100 mls/hr Insulin Aspart (Insulin Aspart (Novolog) 100 Unit/Ml Vial) 0 unit SQ ACHS [facility]; Protocol Last Admin: 04/19/22 17:22 Dose: 4 unit Isosorbide Mononitrate (Isosorbide Mononitrate Er 30 Mg Tab.Er.24h) 30 mg PO DAILY [facility] Last Admin: 04/19/22 09:03 Dose: 30 mg Lactulose (Lactulose 20 Gm/30 Ml Cup) 20 gm PO DAILY PRN PRN Reason: Constipation Lorazepam (Lorazepam 0.5 Mg Tab) 0.5 mg PO Q6HR PRN PRN Reason: Anxiety Last Admin: 04/19/22 12:39 Dose: 0.5 mg Methylprednisolone Sodium Succinate (Methylprednisolone Sod Succi 40 Mg/Ml 1 Ml Vial) 40 mg IV Q8HR [facility] Last Admin: 04/19/22 15:52 Dose: 40 mg Metoprolol Tartrate (Metoprolol Tartrate 25 Mg Tab) 25 mg PO BID [facility] Metronidazole (Metronidazole 500 Mg Tab) 500 mg PO TID [facility]; Protocol Last Admin: 04/19/22 15:52 Dose: 500 mg Miscellaneous Information (Potassium Replacement Protocol 1 Each Misc) 1 each MISCELLANE DAILY PRN; Protocol PRN Reason: Per Protocol Montelukast Sodium (Montelukast 10 Mg Tab) 10 mg PO [facility] Last Admin: 04/18/22 20:46 Dose: 10 mg Naloxone HCl (Naloxone 0.4 Mg/Ml 1 Ml Vial) 0.2 mg IV Q2M PRN PRN Reason: Opioid Reversal Nicotine (Nicotine 14mg/24hr Patch) 1 patch TRANSDERM DAILY [facility] Last Admin: 04/19/22 09:03 Dose: 1 patch Ondansetron HCl (Ondansetron 4 Mg/2 Ml Vial) 4 mg IVP Q8HR PRN PRN Reason: Nausea And Vomiting Pantoprazole Sodium (Pantoprazole 40 Mg Tablet) 40 mg PO BID@0730,1730 [facility] Last Admin: 04/19/22 17:21 Dose: 40 mg Potassium Chloride (Potassium Chloride Er 20 Meq Tab.Er) 20 meq PO BID [facility] Last Admin: 04/19/22 09:04 Dose: 20 meq Prednisolone Acetate (Prednisolone Acetate 1% Ophth Drops 5 Ml Btl) 1 drops LEFT EYE BID [facility] Last Admin: 04/19/22 09:04 Dose: 1 drops Tramadol HCl (Tramadol 50 Mg Tab) 50 mg PO Q8H PRN PRN Reason: Pain Last Admin: 04/18/22 20:47 Dose: 50 mg Past medical history to include: COPD, pulmonary nodule workup in place, abdominal aortic aneurysm with stent, CHF diastolic, GERD, CAD with stent, obesity with sleep apnea, hyperlipidemia, fatty liver, diabetes type 2 Social history: . Smoked 2 packs a day for most of his life. Now down to half a pack a day.. No alcohol Family history: Reviewed, noncontributory to presentation Physical examination: VITAL SIGNS: 98.3, 110, 26, 140/94, 94% on 15 L GENERAL: In bed, short of breath with CPAP EYES: Pupils equal. Conjunctiva normal. HEENT: External appearance of nose and ears normal, oral cavity grossly normal. NECK: JVD unable to assess; masses not palpable. HEART: First and second heart sounds are normal; some edema. LUNGS: Respiratory rate increased,; diminished breath sounds prolonged expiration and wheezing. ABDOMEN: Soft, nontender, liver spleen not palpable, no masses palpable. PSYCH: Was confused earlier, patient answering questions more appropriately MUSCULOSKELETAL:No Clubbing/cyanosis;muscles-grossly intact, evidence of OA INVESTIGATIONS, reviewed in the clinical context: April 19: ABG: PH 7.5 pCO2 28 pO2 64 April 17: White count 15.1 hemoglobin 13.1 percussion 4.2 creatinine 1.3 April 16: White count 11.1 hemoglobin 12.7 platelets 127 potassium 3.5 BUN 28 creatinine 1.35 White count 11.7 hemoglobin 13.4 platelets 173 ABG: PH 7.5 pCO2 30 pO2 139 sodium 135 potassium 3.3 BUN 32 creatinine 1.44 Troponin I 0.076, 80 AST 82 ALT 72 UA trace protein EKG tracing personally reviewed by me-PVCs. Heart rate 110. No specific ST se gment changes Chest x-ray film personally reviewed by [id number] possible mass some patchy basilar opacities. Previous testing: Creatinine 1.5 on July 2021 Chest CTA: Pulmonary nodules in the right upper lobe and left lower lobe and right pulmonary hilum and mediastinal lymphadenopathy, or indeterminate right internal no deal 1.8 cm. Hepatic steatosis. Hyperinflation. Assessment and plan: -Acute COPD exacerbation in a current smoker: Slow to respond DuoNeb every 4. Nebulized Pulmicort -Acute hypoxic respiratory failure: Slow to respond On CPAP 15 L -Suspected metastatic malignancy Being followed by pulmonary and oncology. Pending biopsy by IR -Possible postobstructive pneumonia: Slow to respond IV ceftriaxone -Chronic nicotine dependence, cigarette smoker Nicotine patch -Diabetes mellitus type 2 on oral hypoglycemic Accu-Chek and sliding scale. 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 No ACS legal consultant -CAD with stent Plavix Lopressor -DO NOT RESUSCITATE DuoNeb. Nebulized and IV steroids. IV ceftriaxone. CPAP.. Episode of delirium from hypoxia. Pending liver biopsy tomorrow. Follow with pulmonary and oncology.
--- NOTE | 2022-04-19 17:44 | P.PN ---
Subjective Progress Note Date: 04/19/22 Principal diagnosis: Bilateral pulmonary nodules along with mediastinal mass Right neck lymphadenopathy Progressive weakness with inability to get up and walk around Electrolyte imbalance with hyponatremia and hypokalemia Elevated troponin likely related to demand ischemia Leukocytosis and possibility of postobstructive pneumonia cannot be excluded Mildly elevated liver enzymes Severe morbid obesity Sleep disorder breathing and sleep apnea COPD History of gout Dyslipidemia Hypertension hypertensive cardiovascular disease History of DVT along with prothrombin gene mutation History of abdominal aortic aneurysm 04/19/2022, patient seen and evaluated examined on 15 L nonrebreather mask oxygen saturation is in mid 90s patient is confused talkative but not agitated, biopsy of the neck is still not being done ultrasound of the neck done confirmed lymph node, patient remains afebrile tachycardic with heart or unintentional hemodynamically stable oxygen saturation 94% per nurse confusion improved now compared to this morning, currently on DuoNeb along with Rocephin continuation of home medicines along with IV steroids. Patient has a PET scan at [facility] last check no interpretation was done last week discussed with RN will try to get report, oncology service following along with neurology 04/18/2022, patient seen eval examined during the rounds has been on CPAP on 10 L oxygen saturations improved to mid 90s, patient continued to have intermittent episodes of the respiratory decompensation, for now would recommend BiPAP 15/10 at night and high flow oxygen or CPAP with oxygen during the day, also discussed with him about bronchoscopy due to prior difficult bronchoscopy patient doesn't want to undergo bronchoscopy with a high risk of bleeding complication, on the other hand he is on 10 L high flow oxygen with CPAP high risk of respiratory failure and vent requirement, interventional radiology have evaluated the patient and felt that lesions are central however I have emphasized to do a lymph node biopsy on the right neck area 04/16/2022, patient seen eval examined during the rounds using CPAP machine from home breathing comfortably patient has been otherwise 6 L oxygen, intermittent cough is present, patient has received antibiotics in the emergency department we'll continue it will put patient on Rocephin and Flagyl, also put patient on IV steroids consult has been initiated with IR to do a left torn biopsy or lung biopsy, with oncology as well as neurology for evaluation of severe generalized weakness of sudden onset labs pending patient has been initiated on came back from [place] replacement protocol. Continue to hold Plavix for now for anticipated biopsy early next week Patient is a 76-year-old male with a remote history of smoking, patient has a history of COPD as well as sleep disorder breathing and sleep apnea patient started having some weight loss around 4 weeks ago preliminary workup positive for abnormal chest x-ray eventually underwent computed tomography scan confirmed presence of bilateral pulmonary nodules as well as mediastinal lymphadenopathy one week ago patient developed a lump in the lateral side of the neck since then patient has been progressively weak and short of breath as well he presented to [facility] a few days ago advised to stay in the hospital so that workup including biopsy can be completed but he decided to go home was discharged and biopsies were scheduled on outpatient basis however at home he becomes progressively more week or more short of breath was unable to take care of him because of his size came back into the hospital now being admitted chest x- ray continue show right-sided lung nodule computed tomography scan reviewed again 2 days ago with the presence of bilateral nodules as well as lymphadenopathy in the mediastinal area his recent labs significant for white cell count 11,700 hemoglobin and hematocrit of 13.4 and 40 platelet count of 1 73,000, PT PTT within normal limit, arterial blood gas revealed pH of 7.5 pCO2 30 pO2 of 139 on 50% oxygen, chemistry revealed abnormal electrolytes with sodium 135, potassium 3.3, BUN of 32 creatinine of 1.44, LFT mildly elevated AST/ALT of 82/72 along with alk phos of 254, troponin also mildly elevated 0.79, and BNP is 1620, urinalysis unremarkable patient being admitted into the hospital Objective - Vital Signs Vital signs: Vital Signs Temp 98.3 F 04/19/22 16:00 Pulse 110 H 04/19/22 16:00 Resp 26 H 04/19/22 16:00 BP 148/94 04/19/22 16:00 Pulse Ox 94 L 04/19/22 16:00 FiO2 100 04/18/22 15:49 Intake & Output 04/18/22 04/19/22 04/19/22 18:59 06:59 18:59 Intake Total 120 98 120 Output Total 2425 1300 1500 Balance -6871 -6315 -7658 Intake: Intake, IV Titration 50 Amount cefTRIAXone 1 gm In 50 Sodium Chloride 0.9% 50 ml @ 100 mls/hr IVPB [facility] Rx#:[id number] Oral 120 48 120 Output: Urine 2425 1300 1500 Other: Voiding Method Indwelling Catheter Indwelling Catheter Indwelling Catheter - Exam - Constitutional General appearance: disheveled, morbidly obese, confused talkative - EENT Eyes: EOMI, PERRLA Ears: bilateral: normal - Neck Form mass/nodule-like in mid right neck Neck: lymphadenopathy Carotids: bilateral: upstroke normal Thyroid: bilateral: normal size - Respiratory Respiratory: bilateral: diminished - Cardiovascular Rhythm: regular Heart sounds: normal: S1, S2 - Gastrointestinal General gastrointestinal: normal bowel sounds, soft - Integumentary Integumentary: normal turgor - Neurologic Neurologic: CNII-XII intact - Musculoskeletal Musculoskeletal: gait normal, generalized weakness, strength equal bilaterally - Psychiatric Psychiatric: Pleasantly confused - Labs CBC & Chem 7: 04/17/22 09:39 04/17/22 09:39 Labs: Abnormal Lab Results - Last 24 Hours (Table) 04/18/22 04/19/22 04/19/22 Range/Units 20:30 06:15 11:32 ABG pH (7.35-7.45) ABG pCO2 (35-45) mmHg ABG pO2 (83-108) mmHg ABG O2 Saturation (94-97) % POC Glucose (mg/dL) 195 H 186 H 180 H (70-110) mg/dL 04/19/22 04/19/22 Range/Units 12:12 16:21 ABG pH 7.50 H (7.35-7.45) ABG pCO2 28 L (35-45) mmHg ABG pO2 64 L (83-108) mmHg ABG O2 Saturation 92.9 L (94-97) % POC Glucose (mg/dL) 203 H (70-110) mg/dL Assessment and Plan Assessment: Altered mental status likely metabolic related to IV steroids hypoxia neurology has been following Acute on chronic hypoxic respiratory failure Bilateral pulmonary nodules along with mediastinal mass Right neck lymphadenopathy Progressive weakness with inability to get up and walk around Electrolyte imbalance with hyponatremia and hypokalemia Elevated troponin likely related to demand ischemia Leukocytosis and possibility of postobstructive pneumonia cannot be excluded Mildly elevated liver enzymes Severe morbid obesity Sleep disorder breathing and sleep apnea COPD History of gout Dyslipidemia Hypertension hypertensive cardiovascular disease History of DVT along with prothrombin gene mutation History of abdominal aortic aneurysm Plan: Gentle rehydration Replace electrolytes Broad-spectrum antibiotics with Rocephin and Flagyl IV steroids, we'll start titrating it down BiPAP 15/10 with oxygen to keep saturation over 92% at night and daytime high flow oxygen or CPAP with oxygen, patient has been declining the BiPAP Protection magnesium and phosphorus replacement protocol Neurology and oncology recommendation noted and appreciated Interventional radiology for biopsy of neck mass Further plan of care as per clinical response of the patient Will obtain off she'll report a PET scan from reviewed his hospital Time with Patient: Greater than 30
[2022-04-19 20:19] LABS: Glucose,Whole Blood 234 mg/dL (70-110)
[2022-04-19] MEDS: MONTELUKAST 10 MG TAB PO SCH (21:12)
[2022-04-19] MEDS: allopurinoL 300 MG TAB PO SCH (21:12)
[2022-04-19] MEDS: METOPROLOL TARTRATE 25 MG TAB PO SCH (21:12)
[2022-04-19] MEDS: EZETIMIBE 10 MG TAB PO SCH (21:12)
[2022-04-19 23:15] VITALS: TEMP 97.7
[2022-04-20] MEDS: IPRATROPIUM-ALBUTEROL 3 ML NEB INHALATION SCH ×5 (00:15→16:05)
[2022-04-20] MEDS: SODIUM CHLORIDE 0.9% 1,000 ML IV SCH (00:39)
[2022-04-20 06:11] LABS: Glucose,Whole Blood 187 mg/dL (70-110)
[2022-04-20] MEDS: PANTOPRAZOLE 40 MG TABLET PO SCH (06:52)
[2022-04-20] MEDS: INSULIN ASPART (NovoLOG) 100 UNIT/ML VIAL SQ SCH ×2 (06:53→12:15)
[2022-04-20] MEDS: BUDESONIDE 0.5 MG/2 ML NEBU INHALATION SCH (08:06)
[2022-04-20] MEDS ORDERED: methylPREDNISolone SOD SUCCI 40 MG/ML 1 ML VIAL IV SCH (09:00)
[2022-04-20] MEDS: ENOXAPARIN 30 MG/0.3 ML SYRINGE SQ SCH (09:12)
[2022-04-20] MEDS: GABAPENTIN 300 MG CAP PO SCH (09:22)
[2022-04-20] MEDS: metroNIDAZOLE 500 MG TAB PO SCH (09:22)
[2022-04-20] MEDS: NICOTINE 14MG/24HR PATCH TRANSDERM SCH (09:22)
[2022-04-20] MEDS: ISOSORBIDE MONONITRATE ER 30 MG TAB.ER.24H PO SCH (09:22)
[2022-04-20] MEDS: POTASSIUM CHLORIDE ER 20 MEQ TAB.ER PO SCH (09:22)
[2022-04-20] MEDS: FOLIC ACID 1 MG TAB PO SCH (09:22)
[2022-04-20] MEDS: CYANOCOBALAMIN 500 MCG TAB PO SCH (09:22)
--- NOTE | 2022-04-20 09:22 | CA ---
Transthoracic Echo Report Name: Nando Burk Age: 76 Gender: M : 1945 Exam Date: 04/15/2022 13:50 Exam Location: [facility] Ht (in): 62 Wt (lb): 300 Ordering Physician: Bunny Pena Attending/Referring Phys: Steel Grinder Yael Read RDCS Procedure CPT: Indications: nstemi Cardiac Hx: Technical Quality: Very technically difficult study Contrast 1: Lumason Total Dose (mL): 1 Contrast 2: Total Dose (mL): MEASUREMENTS (Male / Female) Normal Values M-MODE Aortic Root Diameter MM 3.1 cm LA Systolic Diameter MM 3.1 cm LA Ao Ratio MM 1.0 MV E Point Septal Separation 0.9 cm AV Cusp Separation MM 1.6 cm DOPPLER MV Area PHT 6.4 cm??? MR Peak Velocity 94.0 cm/s MR Peak Gradient 3.5 mmHg Mitral E Point Velocity 48.7 cm/s Mitral A Point Velocity 59.5 cm/s Mitral E to A Ratio 0.8 MV Deceleration Time 119.3 ms TR Peak Velocity 256.8 cm/s TR Peak Gradient 26.4 mmHg Right Ventricular Systolic Press 30.2 mmHg FINDINGS Left Ventricle Left ventricular ejection fraction is estimated at 50%. Left ventricular cavity size normal. Right Ventricle Right ventricle not well visualized. Right ventricular systolic pressure within normal limits. Right Atrium Right atrium not well visualized. Left Atrium Left atrium not well visualized. Mitral Valve Mitral valve not well visualized. Trace mitral regurgitation. Aortic Valve Aortic valve not well visualized. Tricuspid Valve Tricuspid valve not well visualized. Trace tricuspid regurgitation. Pulmonic Valve Pulmonic valve not well visualized. Pericardium Trace to Small pericardial effusion. Aorta Aortic root and proximal ascending aorta not well visualized. CONCLUSIONS Suboptimal acoustic windows despite the use of contrast Left ventricular ejection fraction at least 50%, off axis views Previewed by: Dr. Eddie Serra MD (Electronically Signed) Final Date: 20 April 2022 09:21
[2022-04-20] MEDS: prednisoLONE ACETATE 1% OPHTH DROPS 5 ML BTL LEFT EYE SCH (09:23)
[2022-04-20] MEDS: cycloSPORINE 0.05% OPHTH 0.4 ML DROPERETTE BOTH EYES SCH (09:23)
[2022-04-20] MEDS: METOPROLOL TARTRATE 25 MG TAB PO SCH (09:30)
[2022-04-20 11:55] LABS: Glucose,Whole Blood 232 mg/dL (70-110)
[2022-04-20] MEDS: LORazepam 0.5 MG TAB PO PRN (12:15)
[2022-04-20 12:21] VITALS: BP 135/92; PULSE 124; RESP 32
--- NOTE | 2022-04-20 12:37 | P.PN ---
Subjective Patient is a pleasant 76-year-old male with a history of prior tobacco abuse, COPD, obstructive sleep apnea, CAD status post PCI approximately 2013 per patient, PAD status post peripheral stenting, arthritis, CKD. He presented approximately a week ago and had undergone workup for lymphadenopathy however have left AMA. He then presented with continued weakness. He states weakness has been ongoing and progressive over a year where he has intermittently been using wheelchair however more significant in the last few months and especially the last few weeks. He has been mainly describing left lower extremity weakness as well as left upper extremity shoulder weakness. The lower extremity appears more significant at times he will feel his legs giving out from under him. He denies any actual lightheadedness or dizziness or syncope. He denies any chest pain or pressure. He admits he is very concerned regarding losing his mobility. If he does too much he will get short of breath however usually will get weak before he is able to do that much activity. EKG shows normal sinus rhythm, first-degree AV block, Q waves inferiorly with n onspecific minimal 0.5 mm J point elevation in the inferior and lateral leads as well as PVCs. Blood work shows white blood cell count 11.1, hemoglobin 12.7, sodium 136, 1.4 down to 1.3 with a baseline 1.3-1.4. AST 82, ALT 72, alk phos 254, troponin 0.07, 0.08, proBNP 1620. 04/20/2022 Patient seen and examined. Denies any chest pain or pressure. Continues to have shortness of breath, requiring BIPAP. Patient continues to have confusion. Plan for possible Biopsy today. BP is stable. Patient is tachycardic, in sinus mechanism likely secondary to hypoxia. PHYSICAL EXAMINATION Vital signs reviewed. CONSTITUTIONAL: No apparent distress, obese, chronically ill appearing HEENT: Mucous membranes of the mouth are moist. No JVD. CHEST EXAMINATION: Lungs are diminished bilaterally to auscultation. No chest wall tenderness is noted on palpation or with deep breathing. HEART EXAMINATION: Regular rate and rhythm. S1, S2 heard. No murmurs, gallops or rub. ABDOMEN: Soft, nontender. Positive bowel sounds. EXTREMITIES: 2+ peripheral pulses, no lower extremity edema and no calf tenderness. NEUROLOGIC EXAMINATION: Patient is awake, alert, confused on medical situation. ASSESSMENT Elevated troponins, suspect chronically elevated secondary to chronic kidney disease. No significant angina-type symptoms, EKG with no evidence of ischemia. Falls and debility appears mainly related to left lower extremity weakness. No significant lightheadedness or syncope Mediastinal lymphadenopathy concerning for malignancy Hypertension COPD exacerbation Sinus tachycardia PAD with prior history of endovascular treatment CAD with prior PCI Acute on chronic kidney disease Left upper and left lower extremity weakness Remote tobacco abuse Elevated liver enzymes Leukocytosis PLAN Echocardiogram revealed EF 50%, Lumason used very technically difficult study. Valves not well visualized. Continue metoprolol 25mg BID Patient has lymphadenopathy and concern of lung mass with possible cancer. Awaiting possible biopsy. No significant signs of acute coronary syndrome with elevated troponins likely chronically elevated secondary to CKD. Neurology and Oncology following No further inpatient workup at this time for elevated troponin. We will follow the patient as needed. Please reach out with any further questions or concerns. Nurse practitioner note has been reviewed by physician. Signing provider agrees with the documented findings, assessment, and plan of care. Objective - Vital Signs Vital signs: Vital Signs Temp 97.7 F 04/19/22 23:10 Pulse 124 H 04/20/22 12:00 Resp 32 H 04/20/22 12:00 BP 135/92 04/20/22 12:00 Pulse Ox 95 04/20/22 12:00 FiO2 70 04/20/22 12:00 Intake & Output 04/19/22 04/20/22 04/20/22 18:59 06:59 18:59 Intake Total 120 Output Total 2675 1550 Balance -2555 -1550 Intake: Oral 120 Output: Urine 2675 1550 Other: Voiding Method Indwelling Catheter Indwelling Catheter Indwelling Catheter - Labs CBC & Chem 7: 04/17/22 09:39 04/17/22 09:39 Labs: Abnormal Lab Results - Last 24 Hours (Table) 04/19/22 04/19/22 04/20/22 Range/Units 16:21 20:17 06:10 POC Glucose (mg/dL) 203 H 234 H 187 H (70-110) mg/dL 04/20/22 Range/Units 11:48 POC Glucose (mg/dL) 232 H (70-110) mg/dL
[2022-04-20] MEDS ORDERED: LORazepam 1 MG TAB PO PRN (12:42)
--- NOTE | 2022-04-20 13:36 | P.PN ---
Subjective Progress Note Date: 04/20/22 Principal diagnosis: COPD exacerbation, lungs/neck mass. In follow-up today patient is on NRB, he looks comfortable at rest, he as a sitter in the room because he is agitated and combative at times. Objective - Vital Signs Vital signs: Vital Signs Temp 97.7 F 04/19/22 23:10 Pulse 105 H 04/20/22 08:24 Resp 20 04/20/22 08:24 BP 134/86 04/20/22 04:12 Pulse Ox 92 L 04/20/22 08:07 FiO2 70 04/20/22 00:15 Intake & Output 04/19/22 04/20/22 04/20/22 18:59 06:59 18:59 Intake Total 120 Output Total 4284 1550 Balance -2555 -1550 Intake: Oral 120 Output: Urine 6243 1550 Other: Voiding Method Indwelling Catheter Indwelling Catheter - Constitutional General appearance: Present: morbidly obese, no acute distress - Respiratory Respiratory: bilateral: CTA - Cardiovascular Rhythm: regular Heart sounds: normal: S1, S2 Abnormal Heart Sounds: Absent: systolic murmur, diastolic murmur, rub, S3 Gallop, S4 Gallop, click, other - Peripheral edema leg Peripheral Edema: bilateral: 1+ - Gastrointestinal General gastrointestinal: Present: normal bowel sounds, soft - Musculoskeletal Musculoskeletal: Present: generalized weakness - Psychiatric Psychiatric Comment(s): patient resting, discussed with staff patient has been agitated - Labs CBC & Chem 7: 04/17/22 09:39 04/17/22 09:39 Labs: Abnormal Lab Results - Last 24 Hours (Table) 04/19/22 04/19/22 04/19/22 Range/Units 11:32 12:12 16:21 ABG pH 7.50 H (7.35-7.45) ABG pCO2 28 L (35-45) mmHg ABG pO2 64 L (83-108) mmHg ABG O2 Saturation 92.9 L (94-97) % POC Glucose (mg/dL) 180 H 203 H (70-110) mg/dL 04/19/22 04/20/22 Range/Units 20:17 06:10 ABG pH (7.35-7.45) ABG pCO2 (35-45) mmHg ABG pO2 (83-108) mmHg ABG O2 Saturation (94-97) % POC Glucose (mg/dL) 234 H 187 H (70-110) mg/dL - Imaging and Cardiology PET scan 04/10/22 from [facility], report reviewed. Will have report scanned into medical record Assessment and Plan (1) Respiratory failure with hypoxia Current Visit: Yes Status: Acute Priority: High Code(s): J96.91 - RESPIRATORY FAILURE, UNSPECIFIED WITH HYPOXIA SNOMED Code(s): 1 6654246386592385 (2) Lymphadenopathy Current Visit: Yes Status: Acute Priority: High Code(s): R59.1 - GENERALIZED ENLARGED LYMPH NODES SNOMED Code(s): 91284282 (3) Lung nodules Current Visit: Yes Status: Acute Priority: High Code(s): R91.8 - OTHER NONSPECIFIC ABNORMAL FINDING OF LUNG FIELD SNOMED Code(s): 219371706 Plan: Lovenox was not held so lymph node core biopsy was held. Lovenox has been discontinued off the medication list so that holding for procedures not miscommunicated. Discussed with Interventional Radiology nurse. Plan is to proceed with the biopsy tomorrow. Patient states that he had a recent PET scan at [facility]. PET/CT skull base to mid thigh 04/10/22, compared to a CT of the chest and pelvis 03/24/22. asymmetric hypermetabolic uptake without definitive lesion in the right neck. Persistent suspicious spiculated 2.6 cm right lung nodule, max SUV is 4.74, 2.2 cm left lower lobe nodule, SUV 3.36, hypermetabolic prominent right hilar along with right tracheobronchial lymph nodes SUV 3.32, no abnormal findings in the abdomen or pelvis. Abnormal hypermetabolic uptake throughout multiple osseous structures including multifocal involvement in the spine, bilateral ribs. Reference lesion sclerotic, right anterior lower rib lesion, SUV 7.9. Will not need CT of the abdomen and pelvis as previously mentioned.
--- NOTE | 2022-04-20 17:32 | P.DS ---
Providers Date of admission: 04/15/22 12:41 Expected date of discharge: 04/20/22 Attending physician: Levi Rao Consults: 04/15/22 12:33 Consult Physician Stat Consulting Provider: Avinash Sandhu Consult Reason/Comments: NSTEMI Do you want consulting provider notified?: Yes 04/15/22 13:06 Consult Physician Stat Consulting Provider: Jadon Smith Consult Reason/Comments: hypoxia, Lung cancer Do you want consulting provider notified?: Yes, Notify in am 04/16/22 09:36 Consult Physician Urgent Consulting Provider: Parveen Vick Consult Reason/Comments: lung and neck mass Do you want consulting provider notified?: Yes 04/16/22 09:37 Consult Physician Urgent Consulting Provider: Abdirahman Bolanos Consult Reason/Comments: paraneoplastic syndrome Do you want consulting provider notified?: Yes 04/19/22 11:41 Consult Physician Stat Consulting Provider: Erwin Anguiano Consult Reason/Comments: confusion Do you want consulting provider notified?: Yes Primary care physician: Stepan Moyer MD Hospital Course: Chief Complaint: Weak and tired This is a 76-year-old patient who follows with Dr. Stepan Moyer. Patient was just admitted to the hospital on April 11 was found to be in COPD exacerbation. That time computed tomography scan of the chest did show some pulmonary nodules. Patient has not been eating well. Weak and tired. Legs feeling very weak. PE was ruled out with CT angiogram. Also lymph nodes were found. Emphysema changes. Patient had left the hospital prematurely. Patient had been also diagnosed with diastolic CHF, GERD, CAD with stent, hyperlipidemia, fatty liver, diabetes type 2. Patient was seen by Dr. Ruthann Smith from pulmonary. Patient was supposed to follow with him in the office Patient now returns to the hospital feeling very weak. Poor appetite. Only drinking water. Barely able to walk. Has congested cough. Has been a smoker. No chest pain. Feels rundown. No fever no chills Admitted with acute medical asthenia, COPD exacerbation, possible pneumonia April 16: On BiPAP. Tired. Decreased oral intake. DuoNeb, IV ceftriaxone, steroids April 17: Sitting up in a chair. Some shortness of breath. Discussed at length about tissue diagnosis. He will discuss with pulmonary. Eating about 75%. Using CPAP April 18: Sitting up in a chair. On CPAP with -15 of oxygen. Discussed with the nurse not eating much. Tired. Patient has several questions about his biopsy. Discussed at length spoke about several hypothetical situations that he wanted know about. Also discussed with Dr. Diop from pulmonary. Patient is already status and high oxygen is a concern. Even if biopsy shows treatable malignancy has poor functional status would interfere with any treatment at this point. "Biopsy of the neck has been ordered with interventional radiology. Also spoke to patient's on the phone as after discussed patient's clinical situation with the patient he was disturbed about possible unpleasant consequences of cancer if that was confirmed. CODE STATUS discussed with the patient. DO NOT RESUSCITATE April 19: Patient is somewhat confused delirious earlier today. I ordered ABGs showed him to be hypoxic. Earlier he had pulled out his nasal cannula. Nurse informed Dr. Smith from pulmonary. Intervention radiology planning for lymph node biopsy tomorrow. Lovenox discontinued. Patient was reassured. Shortness of breath. Discussed with nurse April 20: Patient be more short of breath today. A bit restless. Delirious. Putting out his masks. I told the nurse to reach out to Dr. Smith the concrete block layer. Ativan had been ordered. Patient succumbed underlying condition. Past medical history to include: COPD, pulmonary nodule workup in place, abdominal aortic aneurysm with stent, CHF diastolic, GERD, CAD with stent, obesity with sleep apnea, hyperlipidemia, fatty liver, diabetes type 2 Social history: . Smoked 2 packs a day for most of his life. Now down to half a pack a day.. No alcohol Family history: Reviewed, noncontributory to presentation INVESTIGATIONS, reviewed in the clinical context: April 19: ABG: PH 7.5 pCO2 28 pO2 64 April 17: White count 15.1 hemoglobin 13.1 percussion 4.2 creatinine 1.3 April 16: White count 11.1 hemoglobin 12.7 platelets 127 potassium 3.5 BUN 28 creatinine 1.35 White count 11.7 hemoglobin 13.4 platelets 173 ABG: PH 7.5 pCO2 30 pO2 139 sodium 135 potassium 3.3 BUN 32 creatinine 1.44 Troponin I 0.076, 80 AST 82 ALT 72 UA trace protein EKG tracing personally reviewed by me-PVCs. Heart rate 110. No specific ST segment changes Chest x-ray film personally reviewed by [id number] possible mass some patchy basilar opacities. Previous testing: Creatinine 1.5 on July 2021 Chest CTA: Pulmonary nodules in the right upper lobe and left lower lobe and right pulmonary hilum and mediastinal lymphadenopathy, or indeterminate right internal no deal 1.8 cm. Hepatic steatosis. Hyperinflation. Cause of : COPD Assessment and plan: -Acute COPD exacerbation in a current smoker: Worsening DuoNeb every 4. Nebulized Pulmicort -Acute hypoxic respiratory failure: Slow to respond On CPAP 15 L -Suspected metastatic malignancy Being followed by pulmonary and oncology. Pending biopsy by IR -Possible postobstructive pneumonia: Slow to respond IV ceftriaxone -Chronic nicotine dependence, cigarette smoker Nicotine patch -Diabetes mellitus type 2 on oral hypoglycemic Accu-Chek and sliding scale. 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 -CAD with stent Plavix Lopressor -DO NOT RESUSCITATE Disposition: Patient Plan - Discharge Summary Discharge Rx Participant: Yes New Discharge Prescriptions: No Action Ezetimibe [Zetia] 10 mg PO HS Albuterol Inhaler [Ventolin Hfa Inhaler] 2 puff INHALATION RT-Q4H PRN PRN Reason: Shortness Of Breath cycloSPORINE 0.05% OPHTH SOLN [Restasis] 1 drop BOTH EYES BID Montelukast [Singulair] 10 mg PO HS Cetirizine HCl [Zyrtec] 10 mg PO DAILY Pantoprazole Sodium [Protonix] 40 mg PO BID Clopidogrel Bisulfate [Plavix] 75 mg PO DAILY Isosorbide Mononitrate [Isosorbide Mononitrate ER] 30 mg PO DAILY Vitamin B Complex 1 cap PO HS calcitrioL [Calcitriol] 0.25 mcg PO MOWEFR Ipratropium-Albuterol Nebulize [Duoneb 0.5 mg-3 mg/3 ml Soln] 3 ml INHALATION RT-BID traZODone HCL [Desyrel] 50 - 100 mg PO HS PRN PRN Reason: Insomnia diazePAM [Valium] 5 mg PO DAILY PRN PRN Reason: Anxiety Acetaminophen-Codeine 300-30mg [Tylenol w/codeine #3] 1 - 2 tab PO Q6H PRN PRN Reason: Pain Gabapentin 600 mg PO TID Potassium Chloride [K-Tab ER] 20 meq PO BID Torsemide [Demadex] 20 mg PO DAILY allopurinoL [Allopurinol] 300 mg PO HS Budesonide [Pulmicort] 0.5 mg INHALATION RT-BID Glimepiride [Amaryl] 0.5 mg PO AC-BRKFST Metoprolol Tartrate [Lopressor] 12.5 mg PO BID Torsemide [Demadex] 10 mg PO Q48H traMADol HCL 50 mg PO Q8H PRN PRN Reason: Pain prednisoLONE ACETATE 1% OPHTH [Pred Forte 1%] 1 drop LEFT EYE BID Fluticasone Nasal Comptche [Flonase Nasal Comptche] 2 spr EA NOSTRIL DAILY PRN PRN Reason: Allergy Symptoms Chlorhexidine Gluconate [Peridex] 15 ml PO BID Ergocalciferol [Vitamin D2 (1250 Mcg = 87162 Iu)] 1,250 mcg PO Q14D Discharge Medication List Albuterol Inhaler [Ventolin Hfa Inhaler] 2 puff INHALATION RT-Q4H PRN 05/13/19 [History] Cetirizine HCl [Zyrtec] 10 mg PO DAILY 05/13/19 [History] Clopidogrel Bisulfate [Plavix] 75 mg PO DAILY 05/13/19 [History] Ezetimibe [Zetia] 10 mg PO HS 05/13/19 [History] Isosorbide Mononitrate [Isosorbide Mononitrate ER] 30 mg PO DAILY 05/13/19 [History] Montelukast [Singulair] 10 mg PO HS 05/13/19 [History] Pantoprazole Sodium [Protonix] 40 mg PO BID 05/13/19 [History] cycloSPORINE 0.05% OPHTH SOLN [Restasis] 1 drop BOTH EYES BID 05/13/19 [History] Gabapentin 600 mg PO TID 11/10/21 [History] Potassium Chloride [K-Tab ER] 20 meq PO BID 11/10/21 [History] Torsemide [Demadex] 20 mg PO DAILY 11/10/21 [History] Vitamin B Complex 1 cap PO HS 11/10/21 [History] calcitrioL [Calcitriol] 0.25 mcg PO MOWEFR 11/10/21 [History] Acetaminophen-Codeine 300-30mg [Tylenol w/codeine #3] 1 - 2 tab PO Q6H PRN 04/11/22 [History] Budesonide [Pulmicort] 0.5 mg INHALATION RT-BID 04/11/22 [History] Chlorhexidine Gluconate [Peridex] 15 ml PO BID 04/11/22 [History] Fluticasone Nasal Comptche [Flonase Nasal Comptche] 2 spr EA NOSTRIL DAILY PRN 04/11/22 [History] Glimepiride [Amaryl] 0.5 mg PO AC-BRKFST 04/11/22 [History] Ipratropium-Albuterol Nebulize [Duoneb 0.5 mg-3 mg/3 ml Soln] 3 ml INHALATION RT-BID 04/11/22 [History] Metoprolol Tartrate [Lopressor] 12.5 mg PO BID 04/11/22 [History] Torsemide [Demadex] 10 mg PO Q48H 04/11/22 [History] allopurinoL [Allopurinol] 300 mg PO HS 04/11/22 [History] diazePAM [Valium] 5 mg PO DAILY PRN 04/11/22 [History] prednisoLONE ACETATE 1% OPHTH [Pred Forte 1%] 1 drop LEFT EYE BID 04/11/22 [History] traMADol HCL 50 mg PO Q8H PRN 04/11/22 [History] traZODone HCL [Desyrel] 50 - 100 mg PO HS PRN 04/11/22 [History] Ergocalciferol [Vitamin D2 (1250 Mcg = 48801 Iu)] 1,250 mcg PO Q14D 04/15/22 [History] Follow up Appointment(s)/Referral(s): Stepan Moyer MD [Primary Care Provider] - 1-2 days Oscar Bravo MD [STAFF PHYSICIAN] - 3 Weeks Discharge Disposition: - Preliminary Cause of Preliminary Cause of : COPD
== END 2022-04-20 16:24 | disposition expired | DRG 193 ==
LOC: EC 10:25 → 3SCARD 12:41
PROVIDERS: ADMIT Hospitalist; ATTEND Hospitalist
PROC: 5A09557 Assistance with Respiratory Ventilation, Greater than 96 Consecutive Hours, Continuous Positive Airway Pressure (ICD-10-PCS; principal; 2022-04-15)
DX: J18.9 Pneumonia, unspecified organism (principal); J96.01 Acute respiratory failure with hypoxia; J96.21 Acute and chronic respiratory failure with hypoxia; G93.1 Anoxic brain damage, not elsewhere classified; I13.0 Hypertensive heart and chronic kidney disease with heart failure and stage 1 through stage 4 chronic kidney disease, or unspecified chronic kidney disease; I24.8 Other forms of acute ischemic heart disease; I50.32 Chronic diastolic (congestive) heart failure; D68.52 Prothrombin gene mutation; E87.1 Hypo-osmolality and hyponatremia; E27.40 Unspecified adrenocortical insufficiency; I31.3 Pericardial effusion (noninflammatory); I25.10 Atherosclerotic heart disease of native coronary artery without angina pectoris; J43.9 Emphysema, unspecified; K76.0 Fatty (change of) liver, not elsewhere classified; M1A.9XX0 Chronic gout, unspecified, without tophus (tophi); N18.30 Chronic kidney disease, stage 3 unspecified; T38.0X5A Adverse effect of glucocorticoids and synthetic analogues, initial encounter; E11.22 Type 2 diabetes mellitus with diabetic chronic kidney disease; E66.01 Morbid (severe) obesity due to excess calories; Z66 Do not resuscitate; F17.210 Nicotine dependence, cigarettes, uncomplicated; Z68.38 Body mass index [BMI] 38.0-38.9, adult; E11.42 Type 2 diabetes mellitus with diabetic polyneuropathy; E11.649 Type 2 diabetes mellitus with hypoglycemia without coma; E78.5 Hyperlipidemia, unspecified; E87.6 Hypokalemia; F41.9 Anxiety disorder, unspecified; G47.33 Obstructive sleep apnea (adult) (pediatric); G89.29 Other chronic pain; R59.1 Generalized enlarged lymph nodes; R91.1 Solitary pulmonary nodule; H91.90 Unspecified hearing loss, unspecified ear; I44.0 Atrioventricular block, first degree; I08.1 Rheumatic disorders of both mitral and tricuspid valves; I71.4 Abdominal aortic aneurysm, without rupture; K21.9 Gastro-esophageal reflux disease without esophagitis; K59.00 Constipation, unspecified; N18.9 Chronic kidney disease, unspecified; R29.6 Repeated falls; R74.01 Elevation of levels of liver transaminase levels; X58.XXXA Exposure to other specified factors, initial encounter; Z79.02 Long term (current) use of antithrombotics/antiplatelets; Z79.51 Long term (current) use of inhaled steroids; Z79.899 Other long term (current) drug therapy; Z86.718 Personal history of other venous thrombosis and embolism; Z86.79 Personal history of other diseases of the circulatory system; Z95.5 Presence of coronary angioplasty implant and graft; Z87.19 Personal history of other diseases of the digestive system; Z91.81 History of falling; Z86.14 Personal history of Methicillin resistant Staphylococcus aureus infection
CPT/HCPCS: 36415; 36600; 70450; 71045; 71046; 71275; 72125; 72170; 76536; 80048; 80053; 81003; 82085; 82550; 82607; 82746; 82805; 83036; 83605; 83735; 83880; 83921; 84100; 84443; 84484; 85025; 85027; 85379; 85610; 85730; 87502; 87635; 93005; 93306; 94640; 94660; 94760; 96361; 96365; 96374; 96375; 99285; 99291